=== PATIENT | male | born 1960 | race Caucasian/White ===

== ENCOUNTER 2019-05-06 14:56 | Outpatient (CLI) | payer OTHER, SELFPAY ==
[2019-05-06 15:23] LABS: Hemoglobin A1C 8.3 % (<5.7)
[2019-05-06 15:24] LABS: Alanine Aminotransferase 31 U/L (4-50); Albumin Level 4.6 g/dL (3.5-5.1); Alkaline Phosphatase 52 U/L (38-126); Aspartate Amino Transferase 36 U/L (17-59); Bilirubin,Total 0.5 mg/dL (0.2-1.3); Blood Urea Nitrogen 20 mg/dL (9-20); Calcium 9.8 mg/dL (8.4-10.2); Carbon Dioxide 27 mmol/L (22-30); Chloride 101 mmol/L (98-107); Estimated Glomerular Filt Rate 52; Glucose 127 mg/dL (75-110); Sodium 141 mmol/L (137-145)
[2019-05-08 19:22] LABS: ANA Cascade Screen Positive (Negative)
[2019-05-12 07:07] LABS: Chromatin (Nucleosomal) Ab <1.0; RNP Antibody <1.0; Sm Antibody <1.0; Sm/RNP Antibody <1.0
[2019-05-12 07:08] LABS: Chromatin Antibody Charge YES; DNA (ds) Antibody Charge YES; RNP Antibody Charge YES; Sm Antibody Charge YES; Sm/RNP Antibody Charge YES
== END 2019-05-06 14:57 | disposition home or self-care (01) ==
PROVIDERS: Internal Medicine Critical Care Medicine; PCP Family Medicine; Visit Provider Physician Assistant
DX: E03.9 Hypothyroidism, unspecified (principal); E11.29 Type 2 diabetes mellitus with other diabetic kidney complication; I13.0 Hypertensive heart and chronic kidney disease with heart failure and stage 1 through stage 4 chronic kidney disease, or unspecified chronic kidney disease; N18.3 Chronic kidney disease, stage 3 (moderate); M35.9 Systemic involvement of connective tissue, unspecified
CPT/HCPCS: 36415; 80053; 83036; 84443; 86038; 86225; 86235

== ENCOUNTER 2019-05-20 13:44 | Outpatient (CLI) | payer OTHER, SELFPAY ==
--- NOTE | 2019-05-25 14:32 | WPDPFTINT ---
PFT Interpretation PFT Interpretation: This PFT met all criteria for ATS standards and reproducibility FEV/FVC post bronchodilator 75% FEV1 89% FVC 84% TLC 88% RV 81% RV/TLC 33% DLCO 51% when adjusted for alveolar volume but not adjusted for hemoglobin Flow volume loops were normal Impression: Moderate reduced diffusion capacity with no significant obstruction or restriction. No significant change since PFT from December 2017. In the absence of anemia or pulmonary hypertension intrinsic lung disease may be present. Clinical correlation is advised.
--- NOTE | 2019-05-25 14:35 | WPDSIXMINUTE ---
Six Minute Walk Six Minute Walk: The patients O2 sats started at 95% and dropped as low as 93% Total walk distance 251.46 meters conclusion: This patient would not benefit from home oxygen therapy
== END 2019-05-20 13:45 | disposition home or self-care (01) ==
LOC: ANHPFT 13:47
PROVIDERS: PCP Family Medicine; Visit Provider Internal Medicine Critical Care Medicine
DX: R06.02 Shortness of breath (principal); R94.2 Abnormal results of pulmonary function studies
CPT/HCPCS: 94060; 94618; 94726; 94729

== ENCOUNTER → 2019-10-28 13:38 | Outpatient (CLI) | payer OTHER, SELFPAY ==
--- NOTE | ~2019-10-28 | CT_ITS ---
EXAMINATION: CT lung screening DATE: 10/28/2019 15:05 INDICATION: Personal history of tobacco dependence, prior smoker with 60 pack year history TECHNIQUE: Computed tomography (CT) of the chest was performed without intravenous contrast. The dose -length product (DLP) was 367.14 mGy-cm. Automated exposure control and iterative reconstruction tech OONi were employed. COMPARISON: 10/21/2018 FINDINGS: No suspicious pulmonary nodules are identified. There is mild emphysema. Calcified pulmonar y nodules and calcified left hilar lymph nodes are consistent with old granulomatous disease. There i s no pleural effusion or pneumothorax. No pathologically enlarged thoracic lymph nodes are identified . The heart size is normal. There are changes of coronary artery bypass grafting. There are bridging osteophytes at multiple levels in the spine, consistent with diffuse idiopathic skeletal hyperostosis (DISH). IMPRESSION: 1. Lung-RADS category 1: Negative. Continue annual screening with noncontrast low-dose chest CT in 12 months. Reviewed, dictated and finalized at location B. IMPRESSION: 1. Lung-RADS category 1: Negative. Continue annual screening with noncontrast l ow-dose chest CT in 12 months.
== END ==
PROVIDERS: PCP Internal Medicine Critical Care Medicine; Visit Provider Family Medicine
DX: Z12.2 Encounter for screening for malignant neoplasm of respiratory organs (principal); Z87.891 Personal history of nicotine dependence
CPT/HCPCS: G0297

== ENCOUNTER 2020-06-08 11:59 | Outpatient (CLI) | payer OTHER, SELFPAY ==
[2020-06-08 12:40] LABS: Alanine Aminotransferase 17 U/L (4-50); Albumin Level 4.3 g/dL (3.5-5.1); Alkaline Phosphatase 38 U/L (38-126); Anion Gap 7 mmol/L (8-16); Aspartate Amino Transferase 28 U/L (17-59); Bilirubin,Total 0.5 mg/dL (0.2-1.3); Blood Urea Nitrogen 13 mg/dL (9-20); Calcium 9.2 mg/dL (8.4-10.2); Carbon Dioxide 29 mmol/L (22-30); Chloride 101 mmol/L (98-107); Estimated Glomerular Filt Rate 48; Glucose 115 mg/dL (75-110); Potassium 5.1 mmol/L (3.4-5.0); Sodium 137 mmol/L (137-145)
[2020-06-08 12:46] LABS: Hemoglobin A1C 6.9 % (<5.7)
== END 2020-06-08 12:00 | disposition home or self-care (01) ==
PROVIDERS: PCP Family Medicine; Visit Provider Family Medicine
DX: E11.29 Type 2 diabetes mellitus with other diabetic kidney complication (principal)
CPT/HCPCS: 36415; 80053; 83036

== ENCOUNTER 2020-10-06 11:25 | Outpatient (CLI) | payer OTHER, SELFPAY ==
[2020-10-06 12:06] LABS: Hemoglobin A1C 8.7 % (<5.7)
[2020-10-06 12:07] LABS: Alanine Aminotransferase 22 U/L (4-50); Albumin Level 4.8 g/dL (3.5-5.1); Alkaline Phosphatase 41 U/L (38-126); Anion Gap 9 mmol/L (8-16); Aspartate Amino Transferase 35 U/L (17-59); Bilirubin,Total 0.4 mg/dL (0.2-1.3); Blood Urea Nitrogen 13 mg/dL (9-20); Calcium 9.6 mg/dL (8.4-10.2); Carbon Dioxide 27 mmol/L (22-30); Chloride 103 mmol/L (98-107); Estimated Glomerular Filt Rate 47; Glucose 162 mg/dL (75-110); Potassium 4.8 mmol/L (3.4-5.0); Sodium 139 mmol/L (137-145)
== END 2020-10-06 11:26 | disposition home or self-care (01) ==
PROVIDERS: PCP Family Medicine; Visit Provider Family Medicine
DX: E11.29 Type 2 diabetes mellitus with other diabetic kidney complication (principal)
CPT/HCPCS: 36415; 80053; 83036

== ENCOUNTER 2020-12-30 11:08 | Outpatient (CLI) | payer OTHER, SELFPAY ==
[2020-12-30 12:52] LABS: HIV 1/2 Ab P24 Ag Result Negative (Negative)
[2020-12-31 11:03] LABS: Rapid Plasma Reagin Non-Reactive (NonReactive)
== END 2020-12-30 11:09 | disposition home or self-care (01) ==
LOC: ANHLAB 11:09
PROVIDERS: PCP Family Medicine; Visit Provider Nurse Practitioner Family
DX: Z11.3 Encounter for screening for infections with a predominantly sexual mode of transmission (principal); Z11.4 Encounter for screening for human immunodeficiency virus [HIV]; Z72.51 High risk heterosexual behavior
CPT/HCPCS: 36415; 86592; 86695; 86696; 86703; G0432

== ENCOUNTER 2021-02-03 11:34 | Outpatient (CLI) | payer OTHER, SELFPAY ==
--- NOTE | ~2021-02-03 | XR_ITS ---
XR hand BI arthritis min 3V DATE: 02/03/2021 13:00 INDICATION: Osteoarthritis. Abnormal immunological findings. TECHNIQUE: 4 views of each hand COMPARISON: None FINDINGS: Right hand: There is asymmetric patchy sclerosis and mild expansion along the medial aspect of the distal radial diametaphysis approximately 4.8 cm in length, approximately 1.4 cm with. Consider fibrous cortical de fect, fibrous dysplasia, less likely old fracture residual. The appearance is benign, with narrow zon e of transition, no associated periosteal reaction or bone destruction. There is polyarticular osteoarthritis, particularly at the first through third metacarpophalangeal gelacio ints and multiple interphalangeal joints. No erosive change is detected. No fracture or dislocation, periosteal reaction or bone destruction. Left hand: Surgical clips are noted along the anterolateral aspect of the distal left forearm. Polyarticular moderate osteoarthritis involving the metacarpophalangeal and interphalangeal joints. No fracture or dislocation, periosteal reaction or bone destruction. IMPRESSION: Polyarticular osteoarthritis Patchy sclerotic benign lesion of the distal radial diametaphysis; differential diagnosis given above Postoperative change of the distal left forearm Reviewed, dictated and finalized at location A.
--- NOTE | ~2021-02-03 | XR_ITS ---
XR foot LT standing 2V DATE: 02/03/2021 13:00 INDICATION: Osteoarthritis. Abnormal immunological findings. TECHNIQUE: Weightbearing AP and lateral views COMPARISON: None FINDINGS: Plate and screws are noted along the distal fibular shaft and lateral malleolus. There are 2 screws through the medial malleolus. There is prominent posterior and plantar calcaneal enthesopathy. There are some calcifications along the plantar and fibrosis. There is moderate osteoarthritis at the first metatarsophalangeal joint. No recent fracture or dislocation, periosteal reaction or bone destruction. IMPRESSION: Status post ORIF distal fibular and medial malleolar fractures Plantar and posterior calcaneal enthesopathy Plantar aponeurosis calcifications Osteoarthritis at first metatarsophalangeal joint Reviewed, dictated and finalized at location A.
--- NOTE | ~2021-02-03 | XR_ITS ---
XR thoracic spine 3V DATE: 02/03/2021 13:00 INDICATION: Back pain. Osteoarthritis. TECHNIQUE: AP, lateral, swimmer views COMPARISON: None FINDINGS: Status post sternotomy. There is diffuse osteopenia. Diffuse idiopathic skeletal hyperostosis of the thoracic spine. No fracture or dislocation or bone destruction is evident. The thoracic pedicles appear intact. No pa raspinal soft tissue thickening. IMPRESSION: Diffuse idiopathic skeletal hyperostosis of the thoracic spine Reviewed, dictated and finalized at location A.
--- NOTE | ~2021-02-03 | XR_ITS ---
XR knee RT 3V DATE: 02/03/2021 13:00 INDICATION: Osteoarthritis. Abnormal neurological findings. TECHNIQUE: 3 views COMPARISON: None FINDINGS: There is periarticular spurring at all 3 compartments, particularly at the patellofemoral a nd medial compartments. There is joint space narrowing at the patellofemoral and medial compartments. Findings are consistent with prominent tricompartment osteoarthritis. There is mild suprapatellar knee joint effusion. No fracture or dislocation, periosteal reaction or bone destruction, radiopaque intra-articular loose body or chondrocalcinosis is evident. There are surgical clips along the posteromedial aspect of the upper knee area. IMPRESSION: Tricompartment osteoarthritis Reviewed, dictated and finalized at location A.
--- NOTE | ~2021-02-03 | XR_ITS ---
XR knee LT 3V DATE: 02/03/2021 13:00 INDICATION: Osteoarthritis. Abnormal immunological findings TECHNIQUE: 3 views COMPARISON: 08/2011 left knee FINDINGS: There is tricompartment osteoarthritis, most severe at the patellofemoral compartment with prominent periarticular spurring. There is moderate loss of medial compartment joint space and promin ent particular spurring at the medial and lateral compartments. No fracture or dislocation or joint effusion. No periosteal reaction or bone destruction. No radiopaq ue intra-articular loose body or chondrocalcinosis.. IMPRESSION: Tricompartment osteoarthritis Reviewed, dictated and finalized at location A.
--- NOTE | ~2021-02-03 | XR_ITS ---
XR sacroiliac joints min 3V DATE: 02/03/2021 13:00 INDICATION: Osteoarthritis. Abnormal neurological findings. TECHNIQUE: AP and bilateral oblique views of the sacroiliac joints COMPARISON: None FINDINGS: No fracture or dislocation, erosive change or ankylosis at the sacroiliac joints. The pubic symphysis is intact. Symmetric mild osteoarthritis at the hip joints. IMPRESSION: Unremarkable sacroiliac joints Reviewed, dictated and finalized at Location A. Reviewed, dictated and finalized at location A.
--- NOTE | ~2021-02-03 | XR_ITS ---
XR foot RT standing 2V DATE: 02/03/2021 13:00 INDICATION: Abnormal neurological findings. Osteoarthritis. TECHNIQUE: Weightbearing AP and lateral views COMPARISON: 04/11/2016 right foot FINDINGS: There is a prominent posterior ankle soft tissue calcification measuring approximately 8 x 15 mm. Osteopenia. There is severe posterior plantar calcaneal enthesopathy, mild to moderate plantar calcaneal enthesop athy. Osteoarthritic changes noted at tarsometatarsal joints, the first metatarsophalangeal and interphalan geal joints. Hallux valgus and bunion deformity. No fracture, dislocation, periosteal reaction or bone destruction or erosive change is evident. IMPRESSION: Polyarticular osteoarthritis Plantar calcaneal enthesopathy, predominantly posteriorly Hallux valgus and bunion deformity Reviewed, dictated and finalized at location A.
[2021-02-03 12:32] LABS: Basophils Absolute Auto 0.1 K/mm3 (0.0-0.1); Basophils Percent Auto 0.7 % (0.2-1.2); Eosinophils Absolute Auto 0.2 K/mm3 (0-0.3); Eosinophils Percent Auto 3.6 % (0-4.4); Hematocrit 38.7 % (42.0-52.0); Hemoglobin 12.2 g/dL (14.0-18.0); Immature Granulocyte Absolute 0.01 K/mm3 (0.00-0.031); Immature Granulocyte Percent A 0.1 % (0-0.5); Lymphocytes Percent Auto 31.3 % (18.3-44.2); Mean Corpuscular HGB Conc 31.5 g/dl (32-36); Mean Corpuscular Volume 85.6 fl (80-100); Mean Platelet Volume 9.7 fl (7.4-10.4); Monocytes Absolute Auto 0.5 K/mm3 (0.1-0.6); Monocytes Percent Auto 6.7 % (2.6-8.5); Neutrophils Absolute Auto 3.9 K/mm3 (1.3-6.7); Neutrophils Percent Auto 57.6 % (45.5-73.1); Platelet Count Result 306 k/mm3 (150-375); Red Blood Count 4.52 M/mm3 (4.6-6.20); Red Cell Distribution Width 14.1 % (11.5-14.5); White Blood Count 6.7 K/mm3 (4.5-10.0)
[2021-02-03 12:37] LABS: Add Urine Microscopic? YES; Appearance Urine Cloudy (Clear); Bilirubin Urine Negative (Negative); Blood Urine Negative (Negative); Color Urine Amber (Yellow); Glucose Urine UA Negative (Negative); Hyaline Casts Urine 30-49 /lpf; Ketones Urine Trace mg/dL (Negative); Leukocyte Esterase Ur Negative LEU/UL (NEGATIVE); Mucus Urine Rare /lpf; Nitrate Urine Negative (Negative); Protein Urine 2+ mg/dL (Negative); RBC Urine 0-2 /hpf (0-2); Squamous Epithelial Cell Urine Rare /hpf (Few)
[2021-02-03 12:44] LABS: Alanine Aminotransferase 22 U/L (4-50); Albumin Level 4.6 g/dL (3.5-5.1); Alkaline Phosphatase 34 U/L (38-126); Anion Gap 14 mmol/L (8-16); Aspartate Amino Transferase 32 U/L (17-59); Bilirubin,Total 0.8 mg/dL (0.2-1.3); Blood Urea Nitrogen 19 mg/dL (9-20); Calcium 9.8 mg/dL (8.4-10.2); Carbon Dioxide 23 mmol/L (22-30); Chloride 103 mmol/L (98-107); Cholesterol 126 mg/dL (0-200); Estimated Glomerular Filt Rate 47; Glucose 172 mg/dL (65-110); HDL Direct 28 mg/dL; Potassium 4.4 mmol/L (3.4-5.0); Sodium 140 mmol/L (137-145); Triglycerides 247 mg/dL (<150)
[2021-02-03 12:55] LABS: LDL Cholesterol Direct 57 mg/dL
[2021-02-03 13:15] LABS: Prostate Specific Antigen 2.2 ng/mL (< OR = 4.0)
[2021-02-03 13:35] LABS: Creatinine Urine 454.3 mg/dL; MALB Creatinine Ratio 133.3 mg/g (0-30); Microalbumin Urine Random 605.5 mg/L (0-16.7)
== END 2021-02-03 11:35 | disposition home or self-care (01) ==
PROVIDERS: PCP Family Medicine; Referring Provider Internal Medicine; Visit Provider Physician Assistant
DX: Z12.5 Encounter for screening for malignant neoplasm of prostate (principal); E03.9 Hypothyroidism, unspecified; M32.9 Systemic lupus erythematosus, unspecified; I13.0 Hypertensive heart and chronic kidney disease with heart failure and stage 1 through stage 4 chronic kidney disease, or unspecified chronic kidney disease; N18.30 Chronic kidney disease, stage 3 unspecified; E11.29 Type 2 diabetes mellitus with other diabetic kidney complication; R76.8 Other specified abnormal immunological findings in serum; M19.90 Unspecified osteoarthritis, unspecified site; M48.10 Ankylosing hyperostosis [Forestier], site unspecified; Z00.00 Encounter for general adult medical examination without abnormal findings; M48.14 Ankylosing hyperostosis [Forestier], thoracic region; M18.11 Unilateral primary osteoarthritis of first carpometacarpal joint, right hand; M16.0 Bilateral primary osteoarthritis of hip; M17.0 Bilateral primary osteoarthritis of knee
CPT/HCPCS: 36415; 72072; 72202; 73130; 73562; 73620; 80053; 80061; 81001; 82043; 84153; 84443; 85025; G0103

== ENCOUNTER 2021-02-09 11:40 | Outpatient (CLI) | payer OTHER, SELFPAY ==
[2021-02-09 13:21] LABS: Hemoglobin A1C 6.3 % (<5.7)
== END 2021-02-09 11:41 | disposition home or self-care (01) ==
LOC: ANHLAB 11:43
PROVIDERS: PCP Family Medicine; Visit Provider Family Medicine
DX: E11.29 Type 2 diabetes mellitus with other diabetic kidney complication (principal)
CPT/HCPCS: 36415; 83036

== ENCOUNTER 2021-03-17 10:35 | Outpatient (CLI) | payer OTHER, SELFPAY ==
[2021-03-17 11:04] LABS: Basophils Absolute Auto 0.1 K/mm3 (0.0-0.1); Basophils Percent Auto 0.6 % (0.2-1.2); Eosinophils Absolute Auto 0.3 K/mm3 (0-0.3); Eosinophils Percent Auto 2.9 % (0-4.4); Hematocrit 41.5 % (42.0-52.0); Hemoglobin 13.2 g/dL (14.0-18.0); Immature Granulocyte Absolute 0.04 K/mm3 (0.00-0.031); Immature Granulocyte Percent A 0.4 % (0-0.5); Lymphocytes Absolute Auto 2.97 K/mm3 (0.9-3.2); Lymphocytes Percent Auto 29.5 % (18.3-44.2); Mean Corpuscular HGB Conc 31.8 g/dl (32-36); Mean Corpuscular Hemoglobin 26.6 pg (26-34); Mean Corpuscular Volume 83.5 fl (80-100); Mean Platelet Volume 9.6 fl (7.4-10.4); Monocytes Absolute Auto 0.8 K/mm3 (0.1-0.6); Monocytes Percent Auto 7.8 % (2.6-8.5); Neutrophils Absolute Auto 5.9 K/mm3 (1.3-6.7); Neutrophils Percent Auto 58.8 % (45.5-73.1); Platelet Count Result 284 k/mm3 (150-375); Red Blood Count 4.97 M/mm3 (4.6-6.20); Red Cell Distribution Width 13.9 % (11.5-14.5); White Blood Count 10.1 K/mm3 (4.5-10.0)
[2021-03-17 11:14] LABS: Alanine Aminotransferase 23 U/L (4-50); Albumin Level 5.2 g/dL (3.5-5.1); Alkaline Phosphatase 34 U/L (38-126); Anion Gap 8 mmol/L (8-16); Aspartate Amino Transferase 37 U/L (17-59); Bilirubin,Total 0.6 mg/dL (0.2-1.3); Blood Urea Nitrogen 25 mg/dL (9-20); Calcium 9.9 mg/dL (8.4-10.2); Carbon Dioxide 26 mmol/L (22-30); Chloride 101 mmol/L (98-107); Estimated Glomerular Filt Rate 38; Glucose 113 mg/dL (65-110); Potassium 4.8 mmol/L (3.4-5.0); Sodium 135 mmol/L (137-145)
[2021-03-17 11:53] LABS: HIV 1/2 Ab P24 Ag Result Negative (Negative)
[2021-03-17 11:55] LABS: Rapid Plasma Reagin Non-Reactive (NonReactive)
== END 2021-03-17 10:36 | disposition home or self-care (01) ==
PROVIDERS: PCP Family Medicine; Visit Provider Physician Assistant
DX: L29.9 Pruritus, unspecified (principal); M32.9 Systemic lupus erythematosus, unspecified; N18.31 Chronic kidney disease, stage 3a; Z20.9 Contact with and (suspected) exposure to unspecified communicable disease
CPT/HCPCS: 36415; 80053; 85025; 86592; 86703; G0432

== ENCOUNTER 2021-03-18 18:32 | Emergency (ER) | payer OTHER, SELFPAY ==
[2021-03-18 18:39] VITALS: BP 158/71; PULSE 75; RESP 20; TEMP 36.4; O2SAT 99
--- NOTE | 2021-03-18 19:42 | ED.GENADULT ---
HPI - General Adult General Chief complaint: Skin/Abscess/Foreign Body Stated complaint: Itching all over Time Seen by Provider: 03/18/21 19:24 History of Present Illness HPI narrative: 60-year-old male presents to the emergency department for evaluation of itching over his entire body for the past 2 weeks. Patient states he started hydroxychloroquine approximately 1 month ago. Patient states the itching started 2 weeks ago. 1 week ago he stopped taking the hydroxychloroquine. Patient did have follow-up with his primary care physician yesterday and had outpatient labs drawn. Patient was also started on a methylprednisolone pack. Patient states he started the dose back yesterday and felt that it did help to start with. Patient states that the first dose of steroid did help but not feel significant improvement from the second dose. Patient has also been taking Benadryl. Review of Systems Review of Systems: CONSTITUTIONAL: Denies fever, chills, or sweats. EYES: Denies visual changes, redness, or discharge. ENT: Denies rhinorrhea, congestion, sore throat, or otalgia. CARDIOVASCULAR: Denies chest pain, palpitations, or edema. RESPIRATORY: Denies cough or dyspnea. GASTROINTESTINAL: Denies abdominal pain, nausea, vomiting, or diarrhea. GENITOURINARY: Denies dysuria or hematuria. SKIN: Denies any rash but does have itching MUSCULOSKELETAL: Denies back pain, joint pain, or myalgia. NEUROLOGIC: Denies headache, numbness, or weakness. PSYCHIATRIC: Denies anxiety or depression. Exam Narrative: APPEARANCE: Well appearing, no pain in distress, well-nourished. Head normocephalic atraumatic. EYES: PERRLA/EOMI, conjunctivae very clear. NOSE: Normal no drainage EARS:TMS clear [place] Seals, with good light reflex. THROAT: Pharynx clear, no exudate. NECK: Supple. No adenopathy, no masses. RESPIRATORY: Airway patent, respirations nonlabored. Clear to auscultation bilaterally, no rales, rhonchi, wheezing. CARDIOVASCULAR: Regular rate and rhythm without murmurs rubs or gallops. ABDOMINAL: Soft, nontender, nondistended, no hepatosplenomegally MUSCULOSKELETAl: Moves all extremities. Strenght/ROM intact, No edema, No calf tenderness. NEURO: Alert. Cranial nerves II through XII intact. Good gait. Good coordination SKIN: Warm, dry. Normal Color. No evidence of any rash PSYCHIATRIC: Normal affect/mood Course Vital Signs Vital signs: Vital Signs Temperature 97.6 F 03/18/21 18:39 Pulse Rate 75 03/18/21 18:39 Respiratory Rate 20 03/18/21 18:39 Blood Pressure 158/71 H 03/18/21 18:39 Pulse Oximetry 99 03/18/21 18:39 Temperature 97.6 F 03/18/21 18:39 Pulse Rate 75 03/18/21 18:39 Respiratory Rate 20 03/18/21 18:39 Blood Pressure 158/71 H 03/18/21 18:39 Pulse Oximetry 99 03/18/21 18:39 Medical Decision Making MDM Narrative Medical decision making narrative: Patient does have outpatient labs which showed abnormal liver enzymes including T bili. Patient has no rash or abnormal skin findings. No areas of excoriation Patient did feel that he had some improvement with the steroids and Benadryl. Patient will be advised to take a lower dose of Benadryl, no more than 50 mg at a time. Patient will be started on Atarax No concern for stroke, scabies, cellulitis. Medical Records Medical records reviewed: Yes I reviewed the external patient's medical records. Medical records narrative: Patient does have 2 charts and labs from his non merged chart were reviewed Vital Signs Vital Signs: Vital Signs Temperature 97.6 F 03/18/21 18:39 Pulse Rate 75 03/18/21 18:39 Respiratory Rate 20 03/18/21 18:39 Blood Pressure 158/71 H 03/18/21 18:39 Pulse Oximetry 99 03/18/21 18:39 Temperature 97.6 F 03/18/21 18:39 Pulse Rate 75 03/18/21 18:39 Respiratory Rate 20 03/18/21 18:39 Blood Pressure 158/71 H 03/18/21 18:39 Pulse Oximetry 99 03/18/21 18:39 Discharge Plan Discharge Clinical Impression: Itching
[2021-03-18 20:44] VITALS: BP 144/95; PULSE 60; RESP 18; O2SAT 95
== END 2021-03-18 20:45 | disposition home or self-care (01) ==
PROVIDERS: Emergency Provider Emergency Medicine; PCP Family Medicine
DX: L29.9 Pruritus, unspecified (principal)
CPT/HCPCS: 99283

== ENCOUNTER 2021-04-14 09:30 | Outpatient (CLI) | payer OTHER, SELFPAY ==
[2021-04-14 10:23] LABS: Alanine Aminotransferase 20 U/L (4-50); Albumin Level 4.4 g/dL (3.5-5.1); Alkaline Phosphatase 33 U/L (38-126); Anion Gap 11 mmol/L (8-16); Aspartate Amino Transferase 33 U/L (17-59); Bilirubin,Total 0.4 mg/dL (0.2-1.3); Blood Urea Nitrogen 16 mg/dL (9-20); Calcium 9.5 mg/dL (8.4-10.2); Carbon Dioxide 25 mmol/L (22-30); Chloride 101 mmol/L (98-107); Estimated Glomerular Filt Rate 56; Glucose 146 mg/dL (65-110); Potassium 4.6 mmol/L (3.4-5.0); Sodium 137 mmol/L (137-145)
[2021-04-14 11:04] LABS: Hepatitis B Surface Antigen Negative (Negative)
== END 2021-04-14 09:31 | disposition home or self-care (01) ==
LOC: ANHLAB 09:44
PROVIDERS: PCP Family Medicine; Visit Provider Family Medicine
DX: Z20.9 Contact with and (suspected) exposure to unspecified communicable disease (principal); Z11.59 Encounter for screening for other viral diseases
CPT/HCPCS: 36415; 80053; 87340

== ENCOUNTER → 2021-05-27 10:16 | Outpatient (CLI) | payer OTHER, SELFPAY ==
[2021-05-27 11:54] LABS: Influenza A QL RT-PCR Negative (Negative); Influenza B QL RT-PCR Negative (Negative); SARS-CoV-2 RNA PCR Positive
== END ==
PROVIDERS: PCP Family Medicine; Visit Provider Physician Assistant
DX: R05.9 Cough, unspecified (principal); R68.89 Other general symptoms and signs; U07.1 COVID-19
CPT/HCPCS: 87502; C9803; U0003; U0005

== ENCOUNTER 2021-05-27 14:57 | Inpatient (IN) | payer OTHER, SELFPAY ==
[2021-05-27] VITALS (14 sets, daily range): BP systolic 98–165; BP diastolic 36–94; PULSE 65–78; RESP 18–26; TEMP 36.4–37.7; O2SAT 91–100; BMI 36.6
--- NOTE | ~2021-05-27 | CT_ITS ---
EXAMINATION: CTA chest PE protocol DATE: 05/27/2021 17:43 INDICATION: Shortness of breath TECHNIQUE: Computed tomography angiography (CTA) of the chest was performed with 100 mL Omnipaque-350 intravenous contrast timed to evaluate the pulmonary arteries. Coronal maximum intensity projection 3D-reconstructions were created by the technologist. The dose-length product (DLP) was 877.79 mGy-cm. Automated exposure control and iterative reconstruction technique were employed. COMPARISON: 10/28/2019 FINDINGS: The pulmonary arteries are well-opacified. No pulmonary embolism is identified. No patholog ically enlarged thoracic lymph nodes are identified. The heart size is normal. The lungs are free of acute opacities. There is no pleural effusion or pneumothorax. Changes of coronary artery bypass malika ting are noted. There are bridging osteophytes at multiple levels in the spine, consistent with diffu se idiopathic skeletal hyperostosis (DISH). IMPRESSION: 1. No pulmonary embolism or acute cardiopulmonary abnormality. Reviewed, dictated and finalized at location F. COMMUNICATIONS MANAGER
--- NOTE | ~2021-05-27 | XR_ITS ---
EXAMINATION: XR chest 1V portable DATE: 05/27/2021 15:19 INDICATION: Shortness of breath. TECHNIQUE: A single frontal view of the chest was obtained. COMPARISON: Chest 2 views 11/10/2012, chest CT 10/28/2019 FINDINGS: The chest demonstrates clear lungs without pneumonia, pleural effusion, or pneumothorax. Th e heart size is normal. Median sternotomy wires are noted. IMPRESSION: 1. No acute cardiopulmonary disease. Reviewed, dictated and finalized at location A. BEVERAGE MANAGER
--- NOTE | 2021-05-27 15:05 | ECG_ITS ---
Measurements Intervals Mal[place] Rate: P: MO: QRS: QRSD: T: QT: QTc: Interpretive Statements NORMAL SINUS RHYTHM LATERAL T-WAVE ABNORMALITY, CONSIDER ISCHEMIA LEFT AXIS DEVIATION INFERIOR INFARCT, AGE UNDETERMINED ABNORMAL EKG Electronically Signed On 06-01-2021 13:55:02 SALES AND EVENTS COORDINATOR by Horace Ash M.D.
--- NOTE | 2021-05-27 15:18 | ED.GENADULT ---
HPI - General Adult General Chief complaint: Shortness of Breath/Dyspnea Stated complaint: resp distress Time Seen by Provider: 05/27/21 15:18 History of Present Illness HPI narrative: 60-year-old male presents to the emergency room shortness of breath, body aches, fever. Patient states body aches fever began 2 days ago. Patient states shortness of breath difficulty breathing started this morning, tested positive for Covid this morning. Patient has a history of COPD, CABG x4. Patient states he received both Covid shots and the booster. Related Data Home Medications Medication Instructions Recorded Confirmed carvedilol 12.5 mg tablet 12.5 mg PO Q12H 04/15/19 05/11/21 clopidogrel 75 mg tablet 75 mg PO DAILY 04/15/19 05/11/21 isosorbide mononitrate 60 mg 60 mg PO DAILY 04/15/19 05/11/21 tablet,extended release 24 hr multivitamin 1 tablet PO DAILY 04/15/19 05/11/21 naproxen sodium 220 mg capsule 440 mg PO BID PRN cap 04/15/19 05/11/21 nitroglycerin 0.4 mg sublingual 0.4 mg SUBLINGUAL Q5M PRN 04/15/19 05/11/21 tablet omega [id number]-fish oil 1,200 mg 1 cap PO BID cap 04/15/19 05/11/21 (144 mg-216 mg) capsule rosuvastatin 40 mg tablet 40 mg PO DAILY 04/15/19 05/11/21 spironolactone 50 mg tablet 50 mg PO DAILY 04/15/19 05/11/21 aspirin 81 mg tablet,delayed 81 mg PO DAILY 04/23/19 05/11/21 release fenofibrate nanocrystallized 145 145 mg PO DAILY 04/23/19 05/11/21 mg tablet loratadine 10 mg capsule 10 mg PO DAILY 05/06/19 05/11/21 metformin 2,000 mg PO QID 03/10/21 05/11/21 Allergies Allergy/AdvReac Type Severity Reaction Status Date / Time hydralazine Allergy Unknown CAUSED Verified 05/11/21 09:59 LUPUS Review of Systems Review of Systems: CONSTITUTIONAL: Denies fever, chills, or sweats. EYES: Denies visual changes, redness, or discharge. ENT: Denies rhinorrhea, congestion, sore throat, or otalgia. CARDIOVASCULAR: Denies chest pain, palpitations, or edema. RESPIRATORY: Reports dyspnea and shortness of breath. GASTROINTESTINAL: Denies abdominal pain, nausea, vomiting, or diarrhea. GENITOURINARY: Denies dysuria or hematuria. SKIN: Denies rash or itching. MUSCULOSKELETAL: Denies back pain, joint pain, or myalgia. NEUROLOGIC: Denies headache, numbness, dizziness, or weakness. PSYCHIATRIC: Denies anxiety or depression. [facility] Past Medical History Medical History Allergic rhinitis NIRANJAN positive Asthma with COPD COPD (chronic obstructive pulmonary disease) Diabetes type 2, controlled DISH (diffuse idiopathic skeletal hyperostosis) Drug-induced lupus erythematosus H/O: CVA (cerebrovascular accident) Hyperlipidemia Hypertension Hypertriglyceridemia Inflammatory arthritis Mild emphysema Obesity Pulmonary nodules Wellness examination Surgical History Surgical History Hx of CABG 2015 Family History Family History Mother Carcinoma of colon Other Diabetes mellitus Family history of arthritis Family history of malignant neoplasm Social History Social History Smoking packs per day: 1 Smoking cigarettes per day: 20.0 Years smoked: 30 Smoking pack-years: 30.00 Smoking status: Former smoker Tobacco type: cigarettes Second hand tobacco smoke exposure: Yes Smoking end date: 04/02/04 Alcohol intake: never Substance use: never Substance use type: does not use Gender identity (if verbalized by the patient): Male Sexual Orientation (if Verbalized by the Patient): Straight or Heterosexual Spiritual care concerns: No Exam Narrative: GENERAL: Ill-appearing in mild respiratory distress. HEAD: Normocephalic, atraumatic. EYES: PERRLA and EOMI. ENT: Nares clear, no rhinorrhea or epistaxis. Mucous membranes moist. NECK: Supple. No adenopathy or masses. N
[2021-05-27 15:20] LABS: Basophils Absolute Auto 0.1 K/mm3 (0.0-0.1); Basophils Percent Auto 0.5 % (0.2-1.2); Eosinophils Absolute Auto 0.1 K/mm3 (0-0.3); Eosinophils Percent Auto 0.8 % (0-4.4); Hematocrit 34.9 % (42.0-52.0); Immature Granulocyte Absolute 0.07 K/mm3 (0.00-0.031); Immature Granulocyte Percent A 0.6 % (0-0.5); Lymphocytes Absolute Auto 2.55 K/mm3 (0.9-3.2); Lymphocytes Percent Auto 20.6 % (18.3-44.2); Mean Corpuscular HGB Conc 31.5 g/dl (32-36); Mean Corpuscular Hemoglobin 26.4 pg (26-34); Mean Corpuscular Volume 83.9 fl (80-100); Mean Platelet Volume 9.4 fl (7.4-10.4); Monocytes Absolute Auto 1.3 K/mm3 (0.1-0.6); Monocytes Percent Auto 10.1 % (2.6-8.5); Neutrophils Absolute Auto 8.4 K/mm3 (1.3-6.7); Neutrophils Percent Auto 67.4 % (45.5-73.1); Platelet Count Result 245 k/mm3 (150-375); Red Blood Count 4.16 M/mm3 (4.6-6.20); Red Cell Distribution Width 15.6 % (11.5-14.5); White Blood Count 12.4 K/mm3 (4.5-10.0)
[2021-05-27 15:45] LABS: Alanine Aminotransferase 58 U/L (4-50); Albumin Level 4.1 g/dL (3.5-5.1); Alkaline Phosphatase 59 U/L (38-126); Anion Gap 8 mmol/L (8-16); Aspartate Amino Transferase 96 U/L (17-59); Bilirubin,Total 0.5 mg/dL (0.2-1.3); Blood Urea Nitrogen 19 mg/dL (9-20); Calcium 9.1 mg/dL (8.4-10.2); Carbon Dioxide 24 mmol/L (22-30); Chloride 103 mmol/L (98-107); Estimated CRCL calculation 59 ml/min; Estimated Glomerular Filt Rate 47; Glucose 143 mg/dL (65-110); Potassium 4.6 mmol/L (3.4-5.0); Sodium 135 mmol/L (137-145)
[2021-05-27] MEDS: ALBUTEROL SULFATE (*SP) INHALER 2 PUFF INHALATION (15:45)
[2021-05-27] MEDS: SODIUM CHLORIDE 0.9% IV 1,000 ML 500 ML IV CONT (15:47)
[2021-05-27] MEDS: ACETAMINOPHEN 500 MG TABLET 1000 MG PO (15:48)
--- NOTE | 2021-05-27 16:45 | PC.NURSE ---
Pt called out, when this RN entered the room pt was noted to have hands to bilateral faith, states his head is aching. HAND CANDLE MOLDER Juan Manuel made aware.
[2021-05-27] MEDS: KETOROLAC 30 MG/ML VIAL (*BKC) IV PUSH (16:56)
[2021-05-27 17:04] LABS: Base Excess ABG -2.3 mEq/l (+/-2.0); Fractional Inspired Oxygen 21 %; HCO3 ABG 18.6 mEq/l (22.0-26.0); Oxygen Content ABG 15.7 %vol (16.0-22.0); Oxygen Saturation ABG 97.2 % (95.0-100.0); Oxyhemoglobin 95.8 % THb (90.0-100.0); PO2 ABG 79.5 mmHg (80.0-100.0); PO2 FiO2 Ratio Arterial Blood 3.79 %; Total Hemoglobin 11.6 g/dL (12.0-18.0)
[2021-05-27 17:07] LABS: pH ABG 7.546 (7.350-7.450)
[2021-05-27 17:08] LABS: Device ROOM AIR; Modified Allen's Test Pass; PCO2 ABG 21.9 mmHg (35.0-45.0); Site Drawn RIGHT RADIAL
--- NOTE | 2021-05-27 17:29 | PC.NURSE ---
PT to ct via stretcher
[2021-05-27] MEDS: LORazepam INJ (*CRX) 2 MG/ML VIAL 1 MG IV PUSH (18:37)
--- NOTE | 2021-05-27 20:20 | PM.IMHP ---
H&P: HPI History of Present Illness Date/Time: 05/27/21 20:20 Chief Complaint: Shortness of breath Narrative: 60-year-old male with past medical history of obesity, obstructive sleep apnea, coronary artery disease status post four-vessel CABG, grade 2 diastolic dysfunction, chronic kidney disease stage 3-4, and diabetes mellitus who presented to the ER with increased shortness of breath. He reported that he was flying home from [place] on the when he began having symptoms of scratchy throat, fever and dry nonproductive cough. He was tested for COVID today and was found to be positive. After he returned home from the COVID test he started having increased shortness of breath. He reports that he took some Aleve to help with his body aches which provided him with enough relief that he was able to rest comfortably. He reports some chest wall tenderness with deep breathing and coughing. He denies any true chest pain. He denies any known ill contacts but admits he did not wear his mask as diligently as he should bowel on vacation. He denies any GI symptoms. He reported decreased urine output while he was on vacation but denies any dysuria, hematuria or sensation of incomplete bladder emptying. The patient received the [employer] COVID vaccine with booster 01/2021. He denies any orthopnea or lower extremity swelling. He does have obstructive sleep apnea but has not used his CPAP in 1 year due to machine recall. He was due for a new polysomnogram but has unable to been tested due to disruption 10 testing due to COVID pandemic. He has not had any loss of sense of taste or smell. He reports a good appetite but has not been able to eat as much as usual. He is on Truvada for STD prevention he does not have a history of HIV. Patient carries a diagnosis of COPD however PFTs in 2019 demonstrated decreased diffusion capacity but no evidence of obstructive or restrictive ventilatory defect. Review of Systems Review of Systems: 12 systems were reviewed with pertinent positives and negatives per HPI. Except as documented in the HPI, all other systems were reviewed and are negative. [facility] Past Medical History Medical History (Updated 05/27/21 @ 23:08 by Maryan Bates DO) Allergic rhinitis NIRANJAN positive Asthma with COPD Chronic kidney disease Stage III with baseline creatinine between 1.2-1.5 Class 2 obesity with body mass index (BMI) of 37.0 to 37.9 in adult COPD (chronic obstructive pulmonary disease) With PFTs 05/25/2019 demonstrating decreased diffusion capacity but no evidence of restrictive or obstructive ventilatory defect CVA (cerebral vascular accident) Right ocular stroke 2004 Diabetes type 2, controlled 02/09/2021 A1c 6.3 % DISH (diffuse idiopathic skeletal hyperostosis) 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 Grade II diastolic dysfunction Noted on echocardiogram 2015 Hyperlipidemia Hypertension Hypertriglyceridemia Hypothyroidism Inflammatory arthritis Obesity Obstructive sleep apnea on CPAP CPAP of 12 with polysomnogram 12 Pulmonary nodules Wellness examination Surgical History Surgical History (Updated 05/27/21 @ 21:43 by Maryan Bates DO) History of cardiac catheterization (~04/2016) Occluded RCA and DENIA to RCA, occluded saphenous vein graft to 90% stenosed D1, patent [place] to LAD and patent saphenous vein graft to obtuse marginal History of tonsillectomy Hx of CABG (~04/2015) For vessel CABG performed at [facility]: BALB[place] to LAD SVG to OM SVG to 2nd diagonal RA to PDA complicated by postoperative atrial fibrillation Status post open reduction with internal fixation of fracture Ankle fracture Family History Family History (Updated 05/27/21 @ 21:42 by Maryan Bates DO) Mother Carcinoma of colon COPD (chronic obstructive pulmonary disease) Father Acute myocardial infarction Age greater than 60 Osteoarthritis Other Diabetes mellitus Social History Social His
--- NOTE | 2021-05-27 22:55 | ADMGEN ---
This patient, Virgil Paz Jr., was admitted to [facility] Surg Room 301-01. Patient/family oriented to hospital policies and general routines including ID bracelet, bed and alarms, visiting hours, pain management, procedures, bathroom and other care routines, personal items, smoking policy, room service/diet, and visiting hours. Information on how to activate the Rapid Response Team has been discussed. Patient/Family are encouraged to report perceived risks to care and to ask questions if they do not understand what they are told or what they should do.
[2021-05-27 23:11] LABS: Glucose Point of Care 252 mg/dl (65-105)
[2021-05-27] MEDS: carvediloL 12.5 MG TABLET PO (23:28)
[2021-05-27] MEDS: rOPINIRole HCL 0.25 MG TABLET PO (23:28)
[2021-05-28] VITALS (10 sets, daily range): BP systolic 148–171; BP diastolic 70–96; PULSE 59–76; RESP 18–20; TEMP 35.8–36.2; O2SAT 95–100
[2021-05-28 06:49] LABS: Hematocrit 33.1 % (42.0-52.0); Hemoglobin 10.6 g/dL (14.0-18.0); Mean Corpuscular Hemoglobin 26.7 pg (26-34); Mean Corpuscular Volume 83.4 fl (80-100); Mean Platelet Volume 9.6 fl (7.4-10.4); Platelet Count Result 225 k/mm3 (150-375); Red Blood Count 3.97 M/mm3 (4.6-6.20); Red Cell Distribution Width 15.5 % (11.5-14.5)
[2021-05-28 07:11] LABS: Alanine Aminotransferase 55 U/L (4-50); Alkaline Phosphatase 51 U/L (38-126); Anion Gap 7 mmol/L (8-16); Aspartate Amino Transferase 61 U/L (17-59); Bilirubin,Total 0.4 mg/dL (0.2-1.3); Blood Urea Nitrogen 22 mg/dL (9-20); Calcium 8.6 mg/dL (8.4-10.2); Carbon Dioxide 23 mmol/L (22-30); Chloride 104 mmol/L (98-107); Estimated CRCL calculation 63 ml/min; Estimated Glomerular Filt Rate 51; Glucose 270 mg/dL (65-110); Lactate Dehydrogenase 439 U/L (313-618); Potassium 4.8 mmol/L (3.4-5.0); Sodium 134 mmol/L (137-145)
[2021-05-28 07:57] LABS: Glucose Point of Care 228 mg/dl (65-105)
[2021-05-28] MEDS: INSULIN ASPART (*BKC) 100 UNITS/ML SUB-Q ×2 (08:20→17:30)
[2021-05-28] MEDS: FENOFIBRATE NANOCRYSTALLIZED 145 MG TABLET PO (08:21)
[2021-05-28] MEDS: ISOSORBIDE MONONITRATE 60 MG TAB.ER.24H PO (08:21)
[2021-05-28] MEDS: CLOPIDOGREL BISULFATE 75 MG TABLET PO (08:21)
[2021-05-28] MEDS: amLODIPine BESYLATE 5 MG TABLET PO (08:21)
[2021-05-28] MEDS: carvediloL 12.5 MG TABLET PO ×2 (08:21→20:28)
[2021-05-28] MEDS: lisinopriL 20 MG TABLET 40 MG PO (08:22)
[2021-05-28] MEDS: rOPINIRole HCL 0.25 MG TABLET PO ×2 (08:22→20:28)
[2021-05-28] MEDS: SPIRONOLACTONE 50 MG TABLET PO (08:22)
[2021-05-28] MEDS: ROSUVASTATIN 10 MG TABLET 40 MG PO (08:22)
[2021-05-28] MEDS: PARoxetine 20 MG TABLET PO (08:22)
[2021-05-28] MEDS: ASPIRIN 81 MG ENTERIC TABLET PO (08:22)
[2021-05-28] MEDS: LEVOTHYROXINE SODIUM 50 MCG TABLET PO (08:23)
--- NOTE | 2021-05-28 10:30 | PM.IMPN ---
Progress Note: A&P Assessment and Plan (1) COVID-19: Code(s): U07.1 - COVID-19 Status: Acute Assessment and Plan: Positive COVID test was Sunday05/25/2021 chest x-ray does not show any evidence pneumonia CTA also does not show any pulmonary embolism or pneumonia. Patient is very tachypneic will start patient on remdesivir and Decadron due to tachypnea, audible wheezes, sore throat, cough supplemental oxygen to wean saturations greater than 90% IS and cornet therapy antitussives inflammatory markers: LDH 439 ferritin 31.60 will trend the a.m. ABG shows respiratory alkalosis with hypocapnia supportive care patient is vaccinated x3 Pfizer (2) Elevated liver transaminase level: Code(s): R74.01 - Elevation of levels of liver transaminase levels Status: Acute Assessment and Plan: AST/ALT elevated at 61/55 Trend labs Probably secondary to COVID infection Hep panel in the am (3) Obstructive sleep apnea (adult) (pediatric): Code(s): G47.33 - Obstructive sleep apnea (adult) (pediatric) Status: Acute Assessment and Plan: continue CPAP titrate to home settings (4) Diabetes type 2, controlled: Qualifiers: Diabetes mellitus complication status: without complication Diabetes mellitus intermediate insulin use: without intermediate use Qualified Code(s): E11.9 - Type 2 diabetes mellitus without complications Code(s): E11.9 - Type 2 diabetes mellitus without complications Status: Inactive Assessment and Plan: glucose 270 hold home metformin for now Accu-Cheks a.c. HS moderate sliding scale insulin hypoglycemia protocol as needed. trend glucose adjust therapy as indicated (5) Chronic kidney disease (CKD) stage G3a/A1, moderately decreased glomerular filtration rate (GFR) between 45-59 mL/min/1.73 square meter and albuminuria creatinine ratio less than 30 mg/g: Code(s): N18.31 - Chronic kidney disease, stage 3a Status: Acute Assessment and Plan: Creatinine is stable Avoid nephrotoxic medications, Trend urine output (6) BPH (benign prostatic hyperplasia): Code(s): N40.0 - Benign prostatic hyperplasia without lower urinary tract symptoms Status: Acute Assessment and Plan: Reports symptoms of BPH with urgency and frequency Trend urine output Start tamsulosin Post residual void (7) Hypertension: Code(s): I10 - Essential (primary) hypertension Status: Acute Assessment and Plan: Current BP 148/72 Continue home medications Trend BP adjust therapy as indicated Time Spent With Patient Time with patient: Greater than 35 minutes Subjective Date/time seen: 05/28/21 10:30 Interval history: Date/Time: 05/27/21 20:20 Narrative: 60-year-old male with past medical history of obesity, obstructive sleep apnea, coronary artery disease status post four-vessel CABG, grade 2 diastolic dysfunction, chronic kidney disease stage 3-4, and diabetes mellitus who presented to the ER with increased shortness of breath. He reported that he was flying home from [place] on the when he began having symptoms of scratchy throat, fever and dry nonproductive cough. He was tested for COVID today and was found to be positive. After he returned home from the COVID test he started having increased shortness of breath. He reports that he took some Aleve to help with his body aches which provided him with enough relief that he was able to rest comfortably. He reports some chest wall tenderness with deep breathing and coughing. He denies any true chest pain. He denies any known ill contacts but admits he did not wear his mask as diligently as he should bowel on vacation. He denies any GI symptoms. He reported decreased urine output while he was on vacation but denies any dysuria, hematuria or sensation of incomple
--- NOTE | 2021-05-28 10:30 | P.PNIM_ITS ---
Progress Note: A&P Assessment and Plan (1) COVID-19: Code(s): U07.1 - COVID-19 Status: Acute Assessment and Plan: * Positive COVID test was Sunday05/25/2021 * chest x-ray does not show any evidence pneumonia * CTA also does not show any pulmonary embolism or pneumonia. * Patient is very tachypneic * will start patient on remdesivir and Decadron due to tachypnea, audible wheezes, sore throat, cough * supplemental oxygen to wean saturations greater than 90% * IS and cornet therapy * antitussives * inflammatory markers: LDH 439 ferritin 31.60 will trend the a.m. * ABG shows respiratory alkalosis with hypocapnia * supportive care * patient is vaccinated x3 Pfizer (2) Elevated liver transaminase level: Code(s): R74.01 - Elevation of levels of liver transaminase levels Status: Acute Assessment and Plan: * AST/ALT elevated at 61/55 * Trend labs * Probably secondary to COVID infection * Hep panel in the am (3) Obstructive sleep apnea (adult) (pediatric): Code(s): G47.33 - Obstructive sleep apnea (adult) (pediatric) Status: Acute Assessment and Plan: * continue CPAP titrate to home settings (4) Diabetes type 2, controlled: Qualifiers: Diabetes mellitus complication status: without complication Diabetes mellitus ferry terminal supervisor insulin use: without ferry terminal supervisor use Qualified Code(s): E11.9 - Type 2 diabetes mellitus without complications Code(s): E11.9 - Type 2 diabetes mellitus without complications Status: Inactive Assessment and Plan: * glucose 270 * hold home metformin for now * Accu-Cheks a.c. HS * moderate sliding scale insulin * hypoglycemia protocol as needed. * trend glucose * adjust therapy as indicated (5) Chronic kidney disease (CKD) stage G3a/A1, moderately decreased glomerular filtration rate (GFR) between 45-59 mL/min/1.73 square meter and albuminuria creatinine ratio less than 30 mg/g: Code(s): N18.31 - Chronic kidney disease, stage 3a Status: Acute Assessment and Plan: * Creatinine is stable * Avoid nephrotoxic medications, * Trend urine output (6) BPH (benign prostatic hyperplasia): Code(s): N40.0 - Benign prostatic hyperplasia without lower urinary tract symptoms Status: Acute Assessment and Plan: * Reports symptoms of BPH with urgency and frequency * Trend urine output * Start tamsulosin * Post residual void (7) Hypertension: Code(s): I10 - Essential (primary) hypertension Status: Acute Assessment and Plan: * Current BP 148/72 * Continue home medications * Trend BP * adjust therapy as indicated Time Spent With Patient Time with patient: Greater than 35 minutes Subjective Date/time seen: 05/28/21 10:30 Interval history: Date/Time: 05/27/21 20:20 Narrative: 60-year-old male with past medical history of obesity, obstructive sleep apnea, coronary artery disease status post four-vessel CABG, grade 2 diastolic dysfunction, chronic kidney disease stage 3-4, and diabetes mellitus who presented to the ER with increased shortness of breath. He reported that he was flying home from [place] on the when he began having symptoms of scratchy throat, fever and dry nonproductive cough. He was tested for COVID today and was found to be positive. After he returned home from the COVID test he started having increased s
[2021-05-28 11:31] LABS: Glucose Point of Care 167 mg/dl (65-105)
[2021-05-28 12:31] LABS: Alanine Aminotransferase 47 U/L (4-50); Estimated CRCL calculation 67 ml/min; Estimated Glomerular Filt Rate 56
[2021-05-28 12:33] LABS: INR 1.1; Prothrombin Time 13.5 Seconds (11.1-14.7)
[2021-05-28] MEDS: TAMSULOSIN HCL 0.4 MG CAPSULE PO (12:43)
[2021-05-28] MEDS: ENOXAPARIN 40 MG/0.4 ML SYRINGE SUB-Q (12:43)
[2021-05-28] MEDS: REMDESIVIR 200 MG/NS 250 ML 200 MG/250 ML BAG 250 MG IVPB (16:05)
[2021-05-28 17:08] LABS: Glucose Point of Care 259 mg/dl (65-105)
[2021-05-28] MEDS: ACETAMINOPHEN 325 MG TABLET 650 MG PO (20:28)
[2021-05-28] MEDS: guaiFENesin/CODEINE (*CRX) 200/20 MG 10 ML SYRUP PO (20:35)
[2021-05-28 21:50] LABS: Glucose Point of Care 323 mg/dl (65-105)
[2021-05-29] VITALS (7 sets, daily range): BP systolic 119–173; BP diastolic 68–88; PULSE 56–78; RESP 18; TEMP 36.2–37; O2SAT 94–98
[2021-05-29 05:43] LABS: INR 1.1; Prothrombin Time 13.5 Seconds (11.1-14.7)
[2021-05-29 05:44] LABS: Alanine Aminotransferase 43 U/L (4-50); Estimated CRCL calculation 73 ml/min; Estimated Glomerular Filt Rate > 60
[2021-05-29 07:39] LABS: Alanine Aminotransferase 44 U/L (4-50); Alkaline Phosphatase 49 U/L (38-126); Anion Gap 7 mmol/L (8-16); Aspartate Amino Transferase 42 U/L (17-59); Bilirubin,Total 0.4 mg/dL (0.2-1.3); Blood Urea Nitrogen 21 mg/dL (9-20); Calcium 8.9 mg/dL (8.4-10.2); Carbon Dioxide 26 mmol/L (22-30); Chloride 101 mmol/L (98-107); Estimated CRCL calculation 73 ml/min; Estimated Glomerular Filt Rate > 60; Glucose 198 mg/dL (65-110); Magnesium 1.8 mg/dL (1.6-2.3); Potassium 4.6 mmol/L (3.4-5.0); Sodium 134 mmol/L (137-145)
[2021-05-29 07:53] LABS: Basophils Percent Auto 0.1 % (0.2-1.2); Hematocrit 33.7 % (42.0-52.0); Hemoglobin 10.6 g/dL (14.0-18.0); Immature Granulocyte Absolute 0.04 K/mm3 (0.00-0.031); Immature Granulocyte Percent A 0.5 % (0-0.5); Lymphocytes Absolute Auto 1.87 K/mm3 (0.9-3.2); Lymphocytes Percent Auto 21.6 % (18.3-44.2); Mean Corpuscular HGB Conc 31.5 g/dl (32-36); Mean Corpuscular Hemoglobin 26.5 pg (26-34); Mean Corpuscular Volume 84.3 fl (80-100); Mean Platelet Volume 9.9 fl (7.4-10.4); Monocytes Absolute Auto 0.5 K/mm3 (0.1-0.6); Monocytes Percent Auto 6.2 % (2.6-8.5); Neutrophils Absolute Auto 6.2 K/mm3 (1.3-6.7); Neutrophils Percent Auto 71.6 % (45.5-73.1); Platelet Count Result 255 k/mm3 (150-375); Red Cell Distribution Width 15.4 % (11.5-14.5); White Blood Count 8.7 K/mm3 (4.5-10.0)
[2021-05-29] MEDS: rOPINIRole HCL 0.25 MG TABLET PO (08:37)
[2021-05-29] MEDS: lisinopriL 20 MG TABLET 40 MG PO (08:37)
[2021-05-29] MEDS: metFORMIN HCL 500 MG TABLET PO (08:37)
[2021-05-29] MEDS: ROSUVASTATIN 10 MG TABLET 40 MG PO (08:37)
[2021-05-29] MEDS: SPIRONOLACTONE 50 MG TABLET PO (08:38)
[2021-05-29] MEDS: ASPIRIN 81 MG ENTERIC TABLET PO (08:38)
[2021-05-29] MEDS: LEVOTHYROXINE SODIUM 50 MCG TABLET PO (08:38)
[2021-05-29] MEDS: ENOXAPARIN 40 MG/0.4 ML SYRINGE SUB-Q (08:38)
[2021-05-29] MEDS: amLODIPine BESYLATE 5 MG TABLET PO (08:38)
[2021-05-29] MEDS: CLOPIDOGREL BISULFATE 75 MG TABLET PO (08:38)
[2021-05-29] MEDS: TAMSULOSIN HCL 0.4 MG CAPSULE PO (08:38)
[2021-05-29] MEDS: carvediloL 12.5 MG TABLET PO (08:38)
[2021-05-29] MEDS: ISOSORBIDE MONONITRATE 60 MG TAB.ER.24H PO (08:38)
[2021-05-29] MEDS: FENOFIBRATE NANOCRYSTALLIZED 145 MG TABLET PO (08:39)
[2021-05-29] MEDS: PARoxetine 20 MG TABLET PO (08:39)
[2021-05-29 09:34] LABS: Glucose Point of Care 170 mg/dl (65-105)
--- NOTE | 2021-05-29 09:34 | P.DS_ITS ---
DS: Admitting Diagnosis Discharge Date 05/29/21 0900 Admitting Diagnosis COVID-19 DS: Discharge Diagnosis Discharge Diagnosis (1) COVID-19: Code(s): U07.1 - COVID-19 Status: Acute Assessment and Plan: * Positive COVID test was Sunday05/25/2021 * chest x-ray does not show any evidence pneumonia * CTA also does not show any pulmonary embolism or pneumonia. * Patient is very tachypneic * will start patient on remdesivir and Decadron due to tachypnea, audible wheezes, sore throat, cough * supplemental oxygen to wean saturations greater than 90% * IS and cornet therapy * antitussives * inflammatory markers: LDH 439 ferritin 31.60 will trend the a.m. * ABG shows respiratory alkalosis with hypocapnia * supportive care * patient is vaccinated x3 Pfizer (2) Elevated liver transaminase level: Code(s): R74.01 - Elevation of levels of liver transaminase levels Status: Acute Assessment and Plan: * AST/ALT elevated at 42/44 * Trend labs * Probably secondary to COVID infection (3) Obstructive sleep apnea (adult) (pediatric): Code(s): G47.33 - Obstructive sleep apnea (adult) (pediatric) Status: Acute Assessment and Plan: * continue CPAP titrate to home settings (4) Diabetes type 2, controlled: Qualifiers: Diabetes mellitus complication status: without complication Diabetes mellitus long term care pharmacist insulin use: without long term care pharmacist use Qualified Code(s): E11.9 - Type 2 diabetes mellitus without complications Code(s): E11.9 - Type 2 diabetes mellitus without complications Status: Inactive Assessment and Plan: * glucose 198 * hold home metformin for now * Accu-Cheks a.c. HS * moderate sliding scale insulin * hypoglycemia protocol as needed. * trend glucose * adjust therapy as indicated Able to resume home metformin (5) Chronic kidney disease (CKD) stage G3a/A1, moderately decreased glomerular filtration rate (GFR) between 45-59 mL/min/1.73 square meter and albuminuria creatinine ratio less than 30 mg/g: Code(s): N18.31 - Chronic kidney disease, stage 3a Status: Acute Assessment and Plan: * Creatinine is stable * Avoid nephrotoxic medications, * Trend urine output (6) BPH (benign prostatic hyperplasia): Code(s): N40.0 - Benign prostatic hyperplasia without lower urinary tract symptoms Status: Acute Assessment and Plan: * Reports symptoms of BPH with urgency and frequency * Trend urine output * Start tamsulosin * Post residual void (7) Hypertension: Code(s): I10 - Essential (primary) hypertension Status: Acute Assessment and Plan: * Current BP 119/68 * Continue home medications * Trend BP * adjust therapy as indicated DS: Summary Hospital Course Hospital Course: patient is a 4-year-old male with a past medical history of hypertension, chronic kidney disease, COPD, CVA, diabetes who presented to the ED with complaints of shortness of breath. Patient had recently taken a trip to [place]. He tested for COVID on Sunday which that came back positive. Patient started to develop symptoms of shortness of breath, congestion, cough, sore throat, in weakness. Upon admission patient was placed on supplemental oxygen however he has been able to be successfully weaned to room air. Oxygen saturations have been greater than 95 throughout the whole e
--- NOTE | 2021-05-29 09:34 | PM.DS ---
DS: Admitting Diagnosis Discharge Date 05/29/21 0900 Admitting Diagnosis COVID-19 DS: Discharge Diagnosis Discharge Diagnosis (1) COVID-19: Code(s): U07.1 - COVID-19 Status: Acute Assessment and Plan: Positive COVID test was Sunday05/25/2021 chest x-ray does not show any evidence pneumonia CTA also does not show any pulmonary embolism or pneumonia. Patient is very tachypneic will start patient on remdesivir and Decadron due to tachypnea, audible wheezes, sore throat, cough supplemental oxygen to wean saturations greater than 90% IS and cornet therapy antitussives inflammatory markers: LDH 439 ferritin 31.60 will trend the a.m. ABG shows respiratory alkalosis with hypocapnia supportive care patient is vaccinated x3 Pfizer (2) Elevated liver transaminase level: Code(s): R74.01 - Elevation of levels of liver transaminase levels Status: Acute Assessment and Plan: AST/ALT elevated at 42/44 Trend labs Probably secondary to COVID infection (3) Obstructive sleep apnea (adult) (pediatric): Code(s): G47.33 - Obstructive sleep apnea (adult) (pediatric) Status: Acute Assessment and Plan: continue CPAP titrate to home settings (4) Diabetes type 2, controlled: Qualifiers: Diabetes mellitus complication status: without complication Diabetes mellitus detention insulin use: without termite exterminator use Qualified Code(s): E11.9 - Type 2 diabetes mellitus without complications Code(s): E11.9 - Type 2 diabetes mellitus without complications Status: Inactive Assessment and Plan: glucose 198 hold home metformin for now Accu-Cheks a.c. HS moderate sliding scale insulin hypoglycemia protocol as needed. trend glucose adjust therapy as indicated Able to resume home metformin (5) Chronic kidney disease (CKD) stage G3a/A1, moderately decreased glomerular filtration rate (GFR) between 45-59 mL/min/1.73 square meter and albuminuria creatinine ratio less than 30 mg/g: Code(s): N18.31 - Chronic kidney disease, stage 3a Status: Acute Assessment and Plan: Creatinine is stable Avoid nephrotoxic medications, Trend urine output (6) BPH (benign prostatic hyperplasia): Code(s): N40.0 - Benign prostatic hyperplasia without lower urinary tract symptoms Status: Acute Assessment and Plan: Reports symptoms of BPH with urgency and frequency Trend urine output Start tamsulosin Post residual void (7) Hypertension: Code(s): I10 - Essential (primary) hypertension Status: Acute Assessment and Plan: Current BP 119/68 Continue home medications Trend BP adjust therapy as indicated DS: Summary Hospital Course Hospital Course: patient is a 4-year-old male with a past medical history of hypertension, chronic kidney disease, COPD, CVA, diabetes who presented to the ED with complaints of shortness of breath. Patient had recently taken a trip to [place]. He tested for COVID on Sunday which that came back positive. Patient started to develop symptoms of shortness of breath, congestion, cough, sore throat, in weakness. Upon admission patient was placed on supplemental oxygen however he has been able to be successfully weaned to room air. Oxygen saturations have been greater than 95 throughout the whole entire visit. Patient was started on remdesivir and Decadron due to the patient's respiratory distress including labored breathing and tachypnea in the 30s. Liver enzymes are noted to be elevated. Glucose has been controlled and metformin has been restarted since the CTA with his been 2 days. Creatinine and BUN have been stable throughout the entire visit. Patient was started on tamsulosin for BPH symptoms including urgency and frequency. Blood pressures also been controlled and home medications have been restarted.
[2021-05-29] MEDS: REMDESIVIR 100 MG/NS 250 ML 100 MG/250 ML BAG 250 MG IVPB (10:53)
[2021-05-29] MEDS: INSULIN ASPART (*BKC) 100 UNITS/ML SUB-Q (11:46)
[2021-05-29 12:18] LABS: Glucose Point of Care 286 mg/dl (65-105)
== END 2021-05-29 14:17 | disposition home or self-care (01) | DRG 179 ==
LOC: ANHED 21:05 → ANH3MEDSUR 21:20
PROVIDERS: Emergency Medicine; Internal Medicine; Admitting Provider Internal Medicine; Emergency Provider Nurse Practitioner Family; PCP Family Medicine; Visit Provider Nurse Practitioner
DX: U07.1 COVID-19 (principal); G47.33 Obstructive sleep apnea (adult) (pediatric); E11.22 Type 2 diabetes mellitus with diabetic chronic kidney disease; I12.9 Hypertensive chronic kidney disease with stage 1 through stage 4 chronic kidney disease, or unspecified chronic kidney disease; N18.31 Chronic kidney disease, stage 3a; N40.0 Benign prostatic hyperplasia without lower urinary tract symptoms; R74.01 Elevation of levels of liver transaminase levels; J44.9 Chronic obstructive pulmonary disease, unspecified; M48.10 Ankylosing hyperostosis [Forestier], site unspecified; E78.5 Hyperlipidemia, unspecified; E66.9 Obesity, unspecified; Z68.36 Body mass index [BMI] 36.0-36.9, adult; Z95.1 Presence of aortocoronary bypass graft; Z86.73 Personal history of transient ischemic attack (TIA), and cerebral infarction without residual deficits; Z87.891 Personal history of nicotine dependence; Z79.82 Long term (current) use of aspirin
CPT/HCPCS: 36415; 36600; 71045; 71275; 80053; 82565; 82728; 82805; 82948; 83615; 83735; 84460; 85025; 85027; 85610; 87502; 93005; 94640; 96361; 96372; 96374; 96375; 96376; 99285; A9270; C9803; G0378; J1100; J1650; J1815; J1885; J2060; J7030; Q9967; U0003; U0005

== ENCOUNTER 2021-06-21 10:05 | Outpatient (CLI) | payer OTHER, SELFPAY ==
[2021-06-21 10:43] LABS: Basophils Percent Auto 0.7 % (0.2-1.2); Eosinophils Absolute Auto 0.2 K/mm3 (0-0.3); Eosinophils Percent Auto 3.2 % (0-4.4); Hematocrit 36.4 % (42.0-52.0); Hemoglobin 11.3 g/dL (14.0-18.0); Immature Granulocyte Absolute 0.02 K/mm3 (0.00-0.031); Immature Granulocyte Percent A 0.3 % (0-0.5); Lymphocytes Absolute Auto 1.95 K/mm3 (0.9-3.2); Lymphocytes Percent Auto 32.8 % (18.3-44.2); Mean Corpuscular Hemoglobin 26.6 pg (26-34); Mean Corpuscular Volume 85.6 fl (80-100); Mean Platelet Volume 9.1 fl (7.4-10.4); Monocytes Absolute Auto 0.4 K/mm3 (0.1-0.6); Monocytes Percent Auto 6.9 % (2.6-8.5); Neutrophils Absolute Auto 3.3 K/mm3 (1.3-6.7); Neutrophils Percent Auto 56.1 % (45.5-73.1); Platelet Count Result 284 k/mm3 (150-375); Red Blood Count 4.25 M/mm3 (4.6-6.20); Red Cell Distribution Width 15.7 % (11.5-14.5); White Blood Count 5.9 K/mm3 (4.5-10.0)
[2021-06-21 10:51] LABS: Alanine Aminotransferase 17 U/L (4-50); Albumin Level 4.2 g/dL (3.5-5.1); Alkaline Phosphatase 40 U/L (38-126); Anion Gap 8 mmol/L (8-16); Aspartate Amino Transferase 29 U/L (17-59); Bilirubin,Total 0.3 mg/dL (0.2-1.3); Blood Urea Nitrogen 17 mg/dL (9-20); Calcium 9.1 mg/dL (8.4-10.2); Carbon Dioxide 26 mmol/L (22-30); Chloride 102 mmol/L (98-107); Estimated Glomerular Filt Rate 47; Glucose 164 mg/dL (65-110); Phosphorus 3.3 mg/dL (2.5-4.5); Potassium 4.1 mmol/L (3.4-5.0); Sodium 136 mmol/L (137-145)
[2021-06-21 11:16] LABS: Add Urine Microscopic? YES; Appearance Urine Cloudy (Clear); Bilirubin Urine 1+ (Negative); Blood Urine Negative (Negative); Color Urine Amber (Yellow); Glucose Urine UA Negative (Negative); Ketones Urine Trace mg/dL (Negative); Leukocyte Esterase Ur Negative LEU/UL (NEGATIVE); Mucus Urine Moderate /lpf; Nitrate Urine Negative (Negative); Protein Urine 2+ mg/dL (Negative); Squamous Epithelial Cell Urine Rare /hpf (Few)
[2021-06-21 11:33] LABS: Specific Grav Ur 1.034 (1.001-1.035)
[2021-06-21 11:58] LABS: Folic Acid > 20.0 ng/mL (2.76->20)
== END 2021-06-21 10:06 | disposition home or self-care (01) ==
PROVIDERS: PCP Family Medicine; Visit Provider Physician Assistant
DX: R41.0 Disorientation, unspecified (principal); R53.83 Other fatigue; E11.29 Type 2 diabetes mellitus with other diabetic kidney complication; R74.01 Elevation of levels of liver transaminase levels; D64.9 Anemia, unspecified; I12.9 Hypertensive chronic kidney disease with stage 1 through stage 4 chronic kidney disease, or unspecified chronic kidney disease; N18.31 Chronic kidney disease, stage 3a
CPT/HCPCS: 36415; 80053; 81001; 82607; 82746; 83036; 84100; 84443; 85025; 87086; 87088

== ENCOUNTER 2021-07-21 11:17 | Outpatient (CLI) | payer OTHER, SELFPAY ==
[2021-07-21 11:54] LABS: Basophils Absolute Auto 0.1 K/mm3 (0.0-0.1); Eosinophils Absolute Auto 0.4 K/mm3 (0-0.3); Eosinophils Percent Auto 4.2 % (0-4.4); Hematocrit 35.9 % (42.0-52.0); Hemoglobin 11.4 g/dL (14.0-18.0); Immature Granulocyte Absolute 0.02 K/mm3 (0.00-0.031); Immature Granulocyte Percent A 0.2 % (0-0.5); Lymphocytes Absolute Auto 2.96 K/mm3 (0.9-3.2); Lymphocytes Percent Auto 35.3 % (18.3-44.2); Mean Corpuscular HGB Conc 31.8 g/dl (32-36); Mean Corpuscular Hemoglobin 26.4 pg (26-34); Mean Corpuscular Volume 83.1 fl (80-100); Mean Platelet Volume 9.5 fl (7.4-10.4); Monocytes Absolute Auto 0.6 K/mm3 (0.1-0.6); Monocytes Percent Auto 7.5 % (2.6-8.5); Neutrophils Absolute Auto 4.3 K/mm3 (1.3-6.7); Neutrophils Percent Auto 51.8 % (45.5-73.1); Platelet Count Result 313 k/mm3 (150-375); Red Blood Count 4.32 M/mm3 (4.6-6.20); Red Cell Distribution Width 14.5 % (11.5-14.5); White Blood Count 8.4 K/mm3 (4.5-10.0)
[2021-07-21 11:55] LABS: Appearance Urine Clear (Clear); Bilirubin Urine Negative (Negative); Blood Urine Negative (Negative); Color Urine Yellow (Yellow); Glucose Urine UA Negative (Negative); Ketones Urine Negative (Negative); Leukocyte Esterase Ur Negative LEU/UL (NEGATIVE); Nitrate Urine Negative (Negative); Protein Urine 2+ mg/dL (Negative); Specific Grav Ur >= 1.030 (1.001-1.035); Urobilinogen Urine 0.2 mg/dL (<2.0); pH Urine 5.5 (5.0-9.0)
[2021-07-21 11:56] LABS: Anion Gap 9 mmol/L (8-16); Blood Urea Nitrogen 13 mg/dL (9-20); Calcium 9.5 mg/dL (8.4-10.2); Carbon Dioxide 25 mmol/L (22-30); Chloride 104 mmol/L (98-107); Estimated Glomerular Filt Rate > 60; Glucose 144 mg/dL (65-110); Potassium 4.4 mmol/L (3.4-5.0); Sodium 138 mmol/L (137-145)
[2021-07-21 11:58] LABS: Mucus Urine Rare /lpf; RBC Urine 0-2 /hpf (0-2); Squamous Epithelial Cell Urine Rare /hpf (Few)
[2021-07-21 12:21] LABS: Iron 46 ug/dL (49-181)
[2021-07-21 12:21] LABS: Add Urine Microscopic? YES
[2021-07-21 12:31] LABS: Percent Iron Saturation 11 % (20-50)
[2021-07-21 12:58] LABS: Ferritin 8.81 ng/mL (11.1-264)
== END 2021-07-21 11:18 | disposition home or self-care (01) ==
LOC: ANHLAB 11:21
PROVIDERS: PCP Family Medicine; Visit Provider Physician Assistant
DX: D64.9 Anemia, unspecified (principal); N18.31 Chronic kidney disease, stage 3a; R31.9 Hematuria, unspecified
CPT/HCPCS: 36415; 80048; 81001; 82728; 83540; 83550; 85025; 87086; 87088

== ENCOUNTER 2022-02-02 11:51 | Outpatient (CLI) | payer OTHER, SELFPAY ==
[2022-02-02 12:45] LABS: Basophils Absolute Auto 0.1 K/mm3 (0.0-0.1); Basophils Percent Auto 0.9 % (0.2-1.2); Eosinophils Absolute Auto 0.5 K/mm3 (0-0.3); Eosinophils Percent Auto 5.5 % (0-4.4); Hematocrit 37.8 % (42.0-52.0); Hemoglobin 11.8 g/dL (14.0-18.0); Immature Granulocyte Absolute 0.02 K/mm3 (0.00-0.031); Immature Granulocyte Percent A 0.2 % (0-0.5); Lymphocytes Absolute Auto 2.82 K/mm3 (0.9-3.2); Lymphocytes Percent Auto 34.7 % (18.3-44.2); Mean Corpuscular HGB Conc 31.2 g/dl (32-36); Mean Corpuscular Hemoglobin 26.8 pg (26-34); Mean Corpuscular Volume 85.9 fl (80-100); Mean Platelet Volume 9.5 fl (7.4-10.4); Monocytes Absolute Auto 0.5 K/mm3 (0.1-0.6); Monocytes Percent Auto 6.3 % (2.6-8.5); Neutrophils Absolute Auto 4.3 K/mm3 (1.3-6.7); Neutrophils Percent Auto 52.4 % (45.5-73.1); Platelet Count Result 306 k/mm3 (150-375); Red Cell Distribution Width 14.9 % (11.5-14.5); White Blood Count 8.1 K/mm3 (4.5-10.0)
[2022-02-02 13:15] LABS: Alanine Aminotransferase 27 U/L (6-50); Albumin Level 4.5 g/dL (3.5-5.1); Alkaline Phosphatase 54 U/L (38-126); Anion Gap 10 mmol/L (8-16); Aspartate Amino Transferase 36 U/L (17-59); Bilirubin,Total 0.5 mg/dL (0.2-1.3); Blood Urea Nitrogen 13 mg/dL (9-20); Calcium 9.1 mg/dL (8.4-10.2); Carbon Dioxide 24 mmol/L (22-30); Chloride 102 mmol/L (98-107); Estimated Glomerular Filt Rate 44; Glucose 184 mg/dL (65-110); Potassium 4.5 mmol/L (3.4-5.0); Sodium 136 mmol/L (137-145)
[2022-02-02 13:20] LABS: Hemoglobin A1C 7.9 % (<5.7)
[2022-02-02 14:04] LABS: Iron 59 ug/dL (49-181)
[2022-02-02 14:13] LABS: Percent Iron Saturation 13 % (20-50)
[2022-02-02 14:17] LABS: Folic Acid > 20.0 ng/mL (2.76->20)
[2022-02-02 14:40] LABS: Ferritin 7.81 ng/mL (11.1-264)
== END 2022-02-02 11:52 | disposition home or self-care (01) ==
PROVIDERS: PCP Family Medicine; Visit Provider Physician Assistant
DX: D64.9 Anemia, unspecified (principal); E03.9 Hypothyroidism, unspecified; E11.29 Type 2 diabetes mellitus with other diabetic kidney complication; I13.0 Hypertensive heart and chronic kidney disease with heart failure and stage 1 through stage 4 chronic kidney disease, or unspecified chronic kidney disease; N18.31 Chronic kidney disease, stage 3a
CPT/HCPCS: 36415; 80053; 82607; 82728; 82746; 83036; 83540; 83550; 85025

== ENCOUNTER 2022-06-09 10:50 | Outpatient (CLI) | payer OTHER, SELFPAY ==
[2022-06-09 09:49] LABS: Basophils Absolute Auto 0.1 K/mm3 (0.0-0.1); Eosinophils Absolute Auto 0.5 K/mm3 (0-0.3); Eosinophils Percent Auto 5.2 % (0-4.4); Hematocrit 38.9 % (42.0-52.0); Hemoglobin 12.4 g/dL (14.0-18.0); Immature Granulocyte Absolute 0.03 K/mm3 (0.00-0.031); Immature Granulocyte Percent A 0.3 % (0-0.5); Lymphocytes Absolute Auto 3.34 K/mm3 (0.9-3.2); Lymphocytes Percent Auto 36.1 % (18.3-44.2); Mean Corpuscular HGB Conc 31.9 g/dl (32-36); Mean Corpuscular Hemoglobin 26.8 pg (26-34); Mean Corpuscular Volume 84.2 fl (80-100); Mean Platelet Volume 9.5 fl (7.4-10.4); Monocytes Absolute Auto 0.7 K/mm3 (0.1-0.6); Neutrophils Absolute Auto 4.6 K/mm3 (1.3-6.7); Neutrophils Percent Auto 49.4 % (45.5-73.1); Platelet Count Result 334 k/mm3 (150-375); Red Blood Count 4.62 M/mm3 (4.6-6.20); Red Cell Distribution Width 13.5 % (11.5-14.5); White Blood Count 9.3 K/mm3 (4.5-10.0)
[2022-06-09 10:01] LABS: Alanine Aminotransferase 28 U/L (6-50); Albumin Level 4.9 g/dL (3.5-5.1); Alkaline Phosphatase 57 U/L (38-126); Anion Gap 8 mmol/L (8-16); Aspartate Amino Transferase 34 U/L (17-59); Bilirubin,Total 0.5 mg/dL (0.2-1.3); Blood Urea Nitrogen 19 mg/dL (9-20); Calcium 9.3 mg/dL (8.4-10.2); Carbon Dioxide 27 mmol/L (22-30); Chloride 103 mmol/L (98-107); Estimated Glomerular Filt Rate 47; Glucose 153 mg/dL (65-110); Potassium 4.7 mmol/L (3.4-5.0); Sodium 138 mmol/L (137-145)
[2022-06-09 10:05] LABS: Iron 38 ug/dL (49-181)
[2022-06-09 10:14] LABS: Percent Iron Saturation 8 % (20-50)
[2022-06-09 10:41] LABS: Ferritin 7.82 ng/mL (11.1-264)
[2022-06-09 11:09] LABS: Folic Acid > 20.0 ng/mL (2.76->20)
[2022-06-09 12:12] LABS: Prostate Specific Antigen 1.9 ng/mL (< OR = 4.0)
[2022-06-09 12:40] LABS: Hepatitis B Surface Antigen Negative (Negative)
[2022-06-09 14:38] LABS: HIV 1/2 Ab P24 Ag Result Negative (Negative)
[2022-06-09 15:43] LABS: Hemoglobin A1C 7.8 % (<5.7)
[2022-06-12 10:10] LABS: Rapid Plasma Reagin Non-Reactive (NonReactive)
== END 2022-06-09 10:51 | disposition home or self-care (01) ==
PROVIDERS: Physician Assistant; PCP Family Medicine; Visit Provider Physician Assistant
DX: E03.9 Hypothyroidism, unspecified (principal); D64.9 Anemia, unspecified; E78.1 Pure hyperglyceridemia; E11.29 Type 2 diabetes mellitus with other diabetic kidney complication; Z12.5 Encounter for screening for malignant neoplasm of prostate; Z20.9 Contact with and (suspected) exposure to unspecified communicable disease; Z79.899 Other long term (current) drug therapy; R79.89 Other specified abnormal findings of blood chemistry; Z11.59 Encounter for screening for other viral diseases; Z72.51 High risk heterosexual behavior; I12.9 Hypertensive chronic kidney disease with stage 1 through stage 4 chronic kidney disease, or unspecified chronic kidney disease; N18.31 Chronic kidney disease, stage 3a; Z11.4 Encounter for screening for human immunodeficiency virus [HIV]
CPT/HCPCS: 36415; 80053; 82607; 82728; 82746; 83036; 83540; 83550; 84153; 84443; 85025; 86592; 86703; 87340; 87491; 87591; G0103; G0432

== ENCOUNTER 2022-09-28 13:39 | Outpatient (CLI) | payer OTHER, SELFPAY ==
[2022-09-28 14:30] LABS: Basophils Absolute Auto 0.1 K/mm3 (0.0-0.1); Basophils Percent Auto 0.8 % (0.2-1.2); Eosinophils Absolute Auto 0.3 K/mm3 (0-0.3); Eosinophils Percent Auto 4.1 % (0-4.4); Hematocrit 39.9 % (42.0-52.0); Hemoglobin 12.9 g/dL (14.0-18.0); Immature Granulocyte Absolute 0.03 K/mm3 (0.00-0.031); Immature Granulocyte Percent A 0.4 % (0-0.5); Lymphocytes Absolute Auto 2.72 K/mm3 (0.9-3.2); Lymphocytes Percent Auto 36.1 % (18.3-44.2); Mean Corpuscular HGB Conc 32.3 g/dl (32-36); Mean Corpuscular Hemoglobin 28.7 pg (26-34); Mean Corpuscular Volume 88.7 fl (80-100); Mean Platelet Volume 10.3 fl (7.4-10.4); Monocytes Absolute Auto 0.5 K/mm3 (0.1-0.6); Monocytes Percent Auto 6.5 % (2.6-8.5); Neutrophils Absolute Auto 3.9 K/mm3 (1.3-6.7); Neutrophils Percent Auto 52.1 % (45.5-73.1); Platelet Count Result 309 k/mm3 (150-375); Red Cell Distribution Width 14.8 % (11.5-14.5); White Blood Count 7.5 K/mm3 (4.5-10.0)
[2022-09-28 14:42] LABS: Alanine Aminotransferase 32 U/L (6-50); Albumin Level 4.5 g/dL (3.5-5.1); Alkaline Phosphatase 58 U/L (38-126); Anion Gap 10 mmol/L (8-16); Aspartate Amino Transferase 36 U/L (17-59); Bilirubin,Total 0.5 mg/dL (0.2-1.3); Blood Urea Nitrogen 23 mg/dL (9-20); Calcium 9.3 mg/dL (8.4-10.2); Carbon Dioxide 27 mmol/L (22-30); Chloride 98 mmol/L (98-107); Estimated Glomerular Filt Rate 38; Glucose 322 mg/dL (65-110); Potassium 4.8 mmol/L (3.4-5.0); Sodium 135 mmol/L (137-145)
[2022-09-28 17:00] LABS: Hemoglobin A1C 10.2 % (<5.7)
[2022-09-28 17:52] LABS: Iron 95 ug/dL (49-181)
[2022-09-28 18:01] LABS: Percent Iron Saturation 23 % (20-50)
== END 2022-09-28 13:40 | disposition home or self-care (01) ==
PROVIDERS: PCP Family Medicine; Visit Provider Physician Assistant
DX: D64.9 Anemia, unspecified (principal); E03.9 Hypothyroidism, unspecified; N18.31 Chronic kidney disease, stage 3a; E11.29 Type 2 diabetes mellitus with other diabetic kidney complication
CPT/HCPCS: 36415; 80053; 82728; 83036; 83540; 83550; 84443; 85025

== ENCOUNTER 2022-10-05 08:22 | Outpatient (CLI) | payer OTHER, SELFPAY ==
--- NOTE | ~2022-10-05 | CT_ITS ---
CT Scan of the Chest without Contrast: Clinical Indication: Lung cancer screening, personal history of nicotine dependence Technique: Contiguous sections were acquired throughout the chest without intravenous contrast. Dose reduction technique was used on this scan by utilizing automated exposure control and iterative recon struction technique. The dose-length product (DLP) was 358.17 mGy-cm. COMPARISON: 05/27/2021, 10/28/2019 Findings: There is no evidence of any significant mediastinal, hilar or axillary lymphadenopathy. The mediastin al soft tissues appear normal. There is no evidence of pleural or pericardial effusion. Small calcified granulomas are present. No other pulmonary nodule seen. Images through the upper abdomen reveal diffuse fatty infiltration of the liver. There is extensive D SIXTO of the thoracic spine. Impression: Lung RADS 2: Benign appearance. 12 month follow-up screening CT advised. Fatty infiltration of the liver. Reviewed, dictated and finalized at [facility]. Impression: Lung RADS 2: Benign appearance. 12 month follow-up screening CT advised. Fatty infiltration of the liver.
== END 2022-10-05 08:23 | disposition home or self-care (01) ==
PROVIDERS: PCP Family Medicine; Visit Provider Physician Assistant
DX: Z12.2 Encounter for screening for malignant neoplasm of respiratory organs (principal); Z87.891 Personal history of nicotine dependence; K76.0 Fatty (change of) liver, not elsewhere classified
CPT/HCPCS: 71271

== ENCOUNTER 2022-10-10 08:19 | Outpatient (CLI) | payer OTHER, SELFPAY ==
--- NOTE | ~2022-10-10 | SLEEP.INT_ITS ---
Split Night Report Patient Name: LORENZO PAZ Study Date: 10/10/2022 Referring Physician: Connie Marroquin PA-C Indications for Polysomnography The patient is a 62 year old male who is 5' 10 and weighs 257.0 lbs. His BMI equals 37.2. ESS =9. A polysomnogram was performed to evaluate for obstructive sleep apnea-. After 124.5 minutes of sleep time the patien t exhibited sufficient respiratory events qualifying him for a CPAP trial which was then initiated. Sleep History Lorenzo Paz Jr is a 62-year-old man with loud snoring, waking up during the night with nasal stuffi ness and a dry mouth. He has a documented history of obstructive sleep apnea. He rarely awakens from sleep feeling short of breath. He occasionally awakens at night with heartburn, belching or coughing. He frequently snores loudly e nough that others complain. He occasionally has difficulty breathing with a cold. He does not wake up gasping for leah ath at night. He rarely has breathing problems at night reported to him by others. He occasionally sweats excessively at night. He occasionally notices are high his heart pounding or beating irregularly at night. Occasionally falls asleep during the day, rarely falls asleep involuntarily, never falls asleep while driving. He never has loss of muscle ton e with strong emotion. He does not have daytime difficulties due to excessive sleepiness. He rarely feels paralyzed on waki ng or falling asleep. He does not have vivid dreamlike scenes upon awakening or falling asleep. He does not feel afraid to go to sleep. He rarely has nightmares. He rarely remembers his dreams. He frequently has racing thoughts. He rarel y feels sad or depressed. He rarely has anxiety. He occasionally has muscular tension. He frequently notices part s of his body jerking, and he frequently kicks at night. He frequently has crawling aching feelings in his legs. He frequently has leg pain at night. He rarely has morning jaw pain. He rarely grinds his teeth during sleep. He rarely is bothered by pain during the day and rarely awakened by pain at night. He occasionally wakes up feeling stiff in the m orning. He rarely wakes up with sore achy muscles. He occasionally wakes up with pain in the neck and spine. He has f atigue, depression, headaches and sexual problems. Normal bedtime is midnight, falling asleep within 30 minutes, typically waking 2-3 times at night to go to the bathroom, returning to sleep within 30 minutes. He wakes the morning between 8 and 9:00 a.m.. He keeps the [facility] schedule on weekends. He gets 6-8 hours of sleep normally. He takes naps in the afternoon or evening. A short nap lasting 10 or 15 minutes may be refreshing. Most of the time he feels adequate after an average night of sleep. H e feels better in the evening compared to other times a day. Medical History Type 2 diabetes mellitus Hypertensive heart disease and chronic kidney disease with heart failure Chronic kidney disease stage IIIA History of CVA Anemia Obstructive sleep apnea Chronic diastolic congestive heart failure Atherosclerotic heart disease Presence of aorto coronary bypass graft Hyperlipidemia Asthma with COPD Pulmonary nodules ystemic lupus erythematosus is Major depressive disorder Hypothyroidism Habits: Quit tobacco 7 years ago. Caffeine 20 oz per day. No alcohol. No recreational substances. Medications Clopidogrel 75 mg a day Aspirin 81 mg a day, delayed release Tamsulosin 0.4 mg q.a.m. Levothyroxine 50 mcg a day Montelukast 10 mg a day Resume his statin 40 mg a day Lisinopril 40 mg a day Spironolactone is a 50 mg a day Ropinirole 0.25 mg Sitagliptin phosphate 100 mg daily Fenofibrate Marianela crystallized 145 mg daily Isosorbide mononitrate 60 mg extended release daily Emtricitabine 200 mg-interest the tip being in 200 mg/tenofovir disoproxil fu
== END 2022-10-11 07:37 | disposition home or self-care (01) ==
LOC: ANHCSM 08:20
PROVIDERS: PCP Family Medicine; Visit Provider Physician Assistant
DX: G47.33 Obstructive sleep apnea (adult) (pediatric) (principal); G47.61 Periodic limb movement disorder
CPT/HCPCS: 95811

== ENCOUNTER 2023-03-12 13:35 | Emergency (ER) | payer OTHER, SELFPAY ==
--- NOTE | ~2023-03-12 | CT_ITS ---
EXAMINATION: CT lumbar spine wo con DATE: 03/12/2023 15:24 INDICATION: Low back pain post injury TECHNIQUE: Computed tomography (CT) of the lumbar spine was performed without intravenous contrast. A utomated exposure control and iterative reconstruction technique were employed. The dose-length produ ct was 1567.85 mGy-cm. COMPARISON: CT abdomen and pelvis dated 09/14/2017 FINDINGS: A degree lumbar levocurvature. 2 mm anterolisthesis L4 on L5 and 2 mm retrolisthesis L5 on S1. Chroni c compression fracture at T11 with one third anterior vertebral body height loss and at T10 and T12 w ith 20% anterior vertebral body height loss. Lumbar vertebral body heights are normal. No acute fract ures identified. There are bridging osteophytes at multiple levels in the thoracic spine consistent w ith diffuse idiopathic skeletal hyperostosis (DISH). Moderate disc height loss with suggestion of dev eloping anterior fusion at T9-T10 and T10-T11. Mild disc height loss at T11-T12 through L5-S1 with ri ght-sided predominance at L2-L3. The following disc levels are specifically discussed: T9-T10: Small left paracentral endplate osteophytes. There is moderate bilateral facet osteoarthritis . There is mild bilateral neural foraminal stenosis. There is mild central canal stenosis. T10-T11: Small posterior endplate osteophytes. There is moderate bilateral facet osteoarthritis. Ther e is moderate bilateral neural foraminal stenosis. There is mild to moderate central canal stenosis. T11-T12: Small posterior endplate osteophytes. There is moderate right and severe left facet joint os teoarthritis. There is mild right and moderate left neural foraminal stenosis. There is mild to moder ate central canal stenosis. T12-L1: Posterior disc osteophyte complex with moderate-sized endplate osteophytes and prominent hete rotopic ossification extending along the posterior margin of the disc. There is moderate bilateral fa cet joint osteoarthritis. There is left and mild to moderate right neural foraminal stenosis. There i s severe central canal stenosis. L1-L2: Disc is bulging. There is left and moderate to severe right facet joint osteoarthritis. There is moderate right and mild to moderate left neural foraminal stenosis. There is moderate central toro l stenosis. L2-L3: Disc is bulging. There is moderate bilateral facet joint osteoarthritis. There is mild bilater al neural foraminal stenosis. There is moderate central canal stenosis. L3-L4: Disc is bulging. There is moderate to severe left and severe right facet joint osteoarthritis. There is moderate left and mild to moderate right neural foraminal stenosis. There is severe central canal stenosis. L4-L5: Disc is bulging. There is severe bilateral facet joint osteoarthritis. There is moderate to se татьяна bilateral neural foraminal stenosis. There is moderate to severe central canal stenosis. L5-S1: Small central disc protrusion with associated endplate osteophyte. There is severe bilateral f acet joint osteoarthritis. There is mild right and mild to moderate left neural foraminal stenosis. T here is mild central canal stenosis. IMPRESSION: 1. Mild lumbar levocurvature with mild to moderate lumbar and lower thoracic spondylosis. This includ es multilevel moderate to severe neural foraminal and central canal stenosis as detailed above. 2. Chronic compression fractures at T10-T12. No acute osseous abnormality. Reviewed, dictated and finalized at location A. MOTIVE TECHNICIAN IMPRESSION: 1. Mild lumbar levocurvature with mild to moderate lumbar and lower thoracic sp ondylosis. This includes multilevel moderate to severe neural foraminal and jaime tral canal stenosis as detailed above. 2. Chronic compression fractures at T10-T12. No acute osseous abnormality.
[2023-03-12 13:49] VITALS: BP 147/78; PULSE 71; RESP 19; TEMP 36.7; O2SAT 97
--- NOTE | 2023-03-12 15:13 | ED.BACK ---
HPI - Back Pain/Injury General Chief Complaint: Back Pain/Injury Stated Complaint: back pain Time Seen by Provider: 03/12/23 16:21 Source: patient Mode of arrival: wheelchair Limitations: no limitations History of Present Illness HPI Narrative: This is a 62-year-old male that presents to the emergency department for low back pain. Reports a couple of days ago he was stepping down off his steps and luisa his back. Since he has had worsening low back pain on the right side. Worse with movement and relieved with rest. He took an anti-inflammatory with little relief. Denies saddle anesthesia or bowel/bladder incontinence. Related Data Home Medications Medication Instructions Recorded Confirmed clopidogrel 75 mg tablet 75 mg PO DAILY 04/15/19 01/25/23 aspirin 81 mg tablet,delayed 81 mg PO DAILY 04/23/19 01/25/23 release (Adult Low Dose Aspirin) nitroglycerin 0.4 mg sublingual 0.4 mg sublingual ONCE 11/27/22 01/25/23 tablet Allergies Allergy/AdvReac Type Severity Reaction Status Date / Time hydralazine Allergy Unknown CAUSED Verified 01/25/23 14:32 LUPUS hydroxychloroquine AdvReac Itching Verified 01/25/23 14:32 [From Plaquenil] Review of Systems Review of Systems: CONSTITUTIONAL: Denies fever MUSCULOSKELETAL: Reports back pain, joint pain, and myalgia. NEUROLOGIC: Denies numbness, or weakness. All systems reviewed & are unremarkable except as noted in HPI and below PMFSH Past Medical History Medical History Allergic rhinitis NIRANJAN positive Asthma with COPD Chronic kidney disease Stage III with baseline creatinine between 1.2-1.5 Class 2 obesity with body mass index (BMI) of 37.0 to 37.9 in adult COPD (chronic obstructive pulmonary disease) With PFTs 05/25/2019 demonstrating decreased diffusion capacity but no evidence of restrictive or obstructive ventilatory defect CVA (cerebral vascular accident) Right ocular stroke 2004 Diabetes type 2, controlled 02/09/2021 A1c 6.3 % DISH (diffuse idiopathic skeletal hyperostosis) 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 Grade II diastolic dysfunction Noted on echocardiogram 2015 Hyperlipidemia Hypertension Hypertriglyceridemia Hypothyroidism Inflammatory arthritis Obesity Obstructive sleep apnea on CPAP CPAP of 12 with polysomnogram 12 Pulmonary nodules Wellness examination Surgical History Surgical History History of cardiac catheterization (~04/2016) Occluded RCA and DENIA to RCA, occluded saphenous vein graft to 90% stenosed D1, patent [place] to LAD and patent saphenous vein graft to obtuse marginal History of tonsillectomy Hx of CABG (~04/2015) For vessel CABG performed at [facility]: BALB[place] to LAD SVG to OM SVG to 2nd diagonal RA to PDA complicated by postoperative atrial fibrillation Status post open reduction with internal fixation of fracture Ankle fracture Family History Family History Mother Carcinoma of colon COPD (chronic obstructive pulmonary disease) Father Acute myocardial infarction Age greater than 60 Osteoarthritis Other Diabetes mellitus Social History Social History Social History: The patient has been since April 2018. He lives alone but has a dog. 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 He is a former smoker and used to smoke 2-4 pack per day but quit in 2004. He denies any alcohol or drug use. Code status: Full code Surrogate decision maker: Jori (brother) Smoking packs per day: 2 Smoking cigarettes per day: 40.0 Years smoked: 30 Smoking pack-years: 60.00 Smoking status: Former smoker Tobacco type: cigarettes Second hand tobacco smoke exposure: Yes Smoking end d
[2023-03-12] MEDS: diazePAM INJ (*CRX) 10 MG/2 ML SYRINGE 5 MG IM (15:17)
[2023-03-12] MEDS: ACETAMINOPHEN 500 MG TABLET 1000 MG PO (15:17)
== END 2023-03-12 16:54 | disposition home or self-care (01) ==
LOC: ANHED 16:48
PROVIDERS: Emergency Provider Physician Assistant; PCP Family Medicine
DX: M54.50 Low back pain, unspecified (principal); E78.5 Hyperlipidemia, unspecified; E03.9 Hypothyroidism, unspecified; E11.22 Type 2 diabetes mellitus with diabetic chronic kidney disease; I12.9 Hypertensive chronic kidney disease with stage 1 through stage 4 chronic kidney disease, or unspecified chronic kidney disease; N18.9 Chronic kidney disease, unspecified; Z86.73 Personal history of transient ischemic attack (TIA), and cerebral infarction without residual deficits; Z87.891 Personal history of nicotine dependence
CPT/HCPCS: 72131; 96372; 99284; A9270; J3360

== ENCOUNTER 2023-04-15 16:05 | Observation (INO) | payer OTHER, MEDICAID, SELFPAY ==
[2023-04-15] VITALS (17 sets, daily range): BP systolic 94–149; BP diastolic 43–79; PULSE 69–96; RESP 14–23; TEMP 36.6–37; O2SAT 93–97; BMI 35.6
--- NOTE | ~2023-04-15 | XR_ITS ---
Portable chest x-ray Comparison: 05/27/2021 Clinical History: Shortness of breath Findings: Lungs are clear, without focal consolidation or pleural effusion. Cardiomediastinal silho uette is stable. Bones and soft tissues are unremarkable. Impression: Clear lungs. Reviewed, dictated and finalized at location . GER SOCIAL WORK Impression: Clear lungs.
--- NOTE | ~2023-04-15 | CT_ITS ---
Clinical Indication: Shortness of breath CT Scan of the Chest with Contrast: Technique: Contiguous sections were acquired throughout the chest after intravenous administration of 100 cc of Omnipaque 350. Dose reduction technique was used on this scan by utilizing automated expos ure control and iterative reconstruction technique. The dose-length product (DLP) was 924.17 mGy-cm. COMPARISON: 10/05/2022 Findings: There is no evidence of any significant mediastinal, hilar or axillary lymphadenopathy. There is no f illing defect in the pulmonary arterial tree to suggest pulmonary embolus. There is no evidence of ao rtic dissection or aneurysm. There is no evidence of pleural or pericardial effusion. The lungs are clear. No pulmonary nodules or infiltrates are noted. Images through the upper abdomen reveal no abnormalities. Impression: No evidence of pulmonary embolus, aortic dissection, or aortic aneurysm. Clear lungs. Reviewed, dictated and finalized at [facility]. ICATION SUPPORT DEVELOPER Impression: No evidence of pulmonary embolus, aortic dissection, or aortic aneurysm. Clear lungs.
--- NOTE | 2023-04-15 16:13 | ECG_ITS ---
Measurements Intervals [place] Rate: 80 P: 52 IL: 216 QRS: -56 QRSD: 108 T: 123 QT: 410 QTc: 475 Interpretive Statements SINUS RHYTHM WITH FIRST DEGREE AV BLOCK LEFT AXIS DEVIATION POSSIBLE LEFT ATRIAL ENLARGEMENT INCOMPLETE LEFT BUNDLE BRANCH BLOCK CONSIDER INFERIOR INFARCT, AGE INDETERMINATE ST-T WAVE ABNORMALITY IN HIGH LATERAL LEADS- CONSIDER ISCHEMIA BASELINE ARTIFACT- I, II, AVR, AVL AVF ABNORMAL ECG NO PREVIOUS ECG AVAILABLE FOR COMPARISON Electronically Signed On 04-16-2023 6:16:32 FILE DRAWER FINISHER by Blade Dwyer D.O.
[2023-04-15 16:29] LABS: Basophils Absolute Auto 0.1 K/mm3 (0.0-0.1); Basophils Percent Auto 0.7 % (0.2-1.2); Eosinophils Absolute Auto 0.2 K/mm3 (0-0.3); Eosinophils Percent Auto 1.7 % (0-4.4); Hematocrit 42.3 % (42.0-52.0); Hemoglobin 14.6 g/dL (14.0-18.0); Immature Granulocyte Absolute 0.04 K/mm3 (0.00-0.031); Immature Granulocyte Percent A 0.3 % (0-0.5); Lymphocytes Absolute Auto 2.56 K/mm3 (0.9-3.2); Lymphocytes Percent Auto 22.3 % (18.3-44.2); Mean Corpuscular HGB Conc 34.5 g/dl (32-36); Mean Corpuscular Hemoglobin 30.9 pg (26-34); Mean Corpuscular Volume 89.4 fl (80-100); Mean Platelet Volume 11.1 fl (7.4-10.4); Monocytes Absolute Auto 0.9 K/mm3 (0.1-0.6); Monocytes Percent Auto 7.7 % (2.6-8.5); Neutrophils Absolute Auto 7.7 K/mm3 (1.3-6.7); Neutrophils Percent Auto 67.3 % (45.5-73.1); Platelet Count Result 273 k/mm3 (150-375); Red Blood Count 4.73 M/mm3 (4.6-6.20); Red Cell Distribution Width 12.8 % (11.5-14.5); White Blood Count 11.5 K/mm3 (4.5-10.0)
--- NOTE | 2023-04-15 16:33 | ED.GENADULT ---
HPI - General Adult General Chief complaint: Unspecified Stated complaint: high blood sugar Time Seen by Provider: 04/15/23 16:09 History of Present Illness HPI narrative: [age] old male with history of hypertension, high cholesterol, diabetes and NC with quadruple bypass in 2015 at [facility] presenting to the emergency department for evaluation for shortness of breath and hyperglycemia. Patient states he was working on his car when he had onset shortness of breath. Patient states that the shortness of breath did begin to improve. Patient states he has been having some chest pain with this and describes ?heartburn?. Patient follows up with Dr. Boswell Related Data Home Medications Medication Instructions Recorded Confirmed aspirin 81 mg tablet,delayed 81 mg PO DAILY 04/15/23 04/15/23 release carvedilol 12.5 mg tablet 12.5 mg PO BID 04/15/23 04/15/23 clopidogrel 75 mg tablet 75 mg PO DAILY 04/15/23 04/15/23 empagliflozin 10 mg tablet 10 mg PO DAILY 04/15/23 04/15/23 emtricitabine 200 mg-tenofovir 1 tablet PO DAILY 04/15/23 04/15/23 disoproxil fumarate 300 mg tablet fenofibrate nanocrystallized 145 145 mg PO DAILY 04/15/23 04/15/23 mg tablet ferrous sulfate 325 mg (65 mg 325 mg PO DAILY 04/15/23 04/15/23 iron) tablet glipizide 5 mg tablet, extended 5 mg PO DAILY 04/15/23 04/15/23 release 24 hr isosorbide mononitrate 60 mg 60 mg PO DAILY 04/15/23 04/15/23 tablet,extended release 24 hr levothyroxine 50 mcg tablet 50 mcg PO DAILY 04/15/23 04/15/23 lisinopril 40 mg tablet 40 mg PO DAILY 04/15/23 04/15/23 metformin 500 mg tablet,extended 2,000 mg PO DAILY 04/15/23 04/15/23 release 24 hr montelukast 10 mg tablet 10 mg PO DAILY 04/15/23 04/15/23 paroxetine HCl 10 mg tablet 10 mg PO BID 04/15/23 04/15/23 ropinirole 0.25 mg tablet 0.25 mg PO DAILY 04/15/23 04/15/23 rosuvastatin 40 mg tablet 40 mg PO DAILY 04/15/23 04/15/23 spironolactone 50 mg tablet 50 mg PO DAILY 04/15/23 04/15/23 tamsulosin 0.4 mg capsule 0.4 mg PO DAILY 04/15/23 04/15/23 Allergies Allergy/AdvReac Type Severity Reaction Status Date / Time hydralazine Allergy Unknown CAUSED Verified 04/15/23 16:38 LUPUS hydroxychloroquine AdvReac Itching Verified 04/15/23 16:38 [From Plaquenil] Review of Systems Review of Systems: All systems reviewed & are unremarkable except as noted in HPI and below [facility] Past Medical History Medical History (Updated 04/15/23 @ 20:36 by Melody Rboertson PA-C) Allergic rhinitis NIRANJAN positive Asthma with COPD Chronic kidney disease Stage III with baseline creatinine between 1.2-1.5 Class 2 obesity with body mass index (BMI) of 37.0 to 37.9 in adult COPD (chronic obstructive pulmonary disease) With PFTs 05/25/2019 demonstrating decreased diffusion capacity but no evidence of restrictive or obstructive ventilatory defect Coronary artery disease CVA (cerebral vascular accident) Right ocular stroke 2004 Diffuse idiopathic skeletal hyperostosis 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 Pulmonary nodules Type 2 diabetes mellitus Surgical History Surgical History History of cardiac catheterization (~04/2016) Occluded RCA and DENIA to RCA, occluded saphenous vein graft to 90% stenosed D1, patent BALBUENA to LAD and patent saphenous vein graft to obtuse marginal History of tonsillectomy Hx of CABG (~04/2015) For vessel CABG performed at [facility]: BALBUENA to LAD SVG to OM SVG to 2nd diagonal RA to PDA complicated by postoperative atrial fibrillation Status post open reduction with internal fixation of fracture Ankle fracture Family History Family History Mother Carcinoma of colon
[2023-04-15] MEDS: SODIUM CHLORIDE 0.9% IV 1,000 ML 999 ML IV CONT ×3 (16:38→21:12)
[2023-04-15] MEDS: ALBUTEROL SULFATE NEB 2.5 MG/3 ML INH INHALATION (16:48)
[2023-04-15 16:58] LABS: D Dimer 0.76 ug/mL (<0.48)
[2023-04-15] MEDS: NITROGLYCERIN SL 0.4 MG TABLET SUBLINGUAL (17:02)
[2023-04-15 17:16] LABS: Influenza A QL RT-PCR Negative (Negative); Influenza B QL RT-PCR Negative (Negative); RSV RNA, RT-PCR Negative (Negative); SARS-CoV-2 RNA PCR Negative (Negative)
[2023-04-15 17:24] LABS: Alanine Aminotransferase 36 U/L (6-50); Albumin Level 3.8 g/dL (3.5-5.1); Alkaline Phosphatase 137 U/L (38-126); Anion Gap 14 mmol/L (8-16); Aspartate Amino Transferase 40 U/L (17-59); Bilirubin,Total 0.8 mg/dL (0.2-1.3); Blood Urea Nitrogen 31 mg/dL (9-20); Calcium 8.5 mg/dL (8.4-10.2); Carbon Dioxide 19 mmol/L (22-30); Chloride 89 mmol/L (98-107); Estimated CRCL calculation 61 ml/min; Estimated Glomerular Filt Rate 51; Glucose 712 mg/dL (65-110); Magnesium 1.6 mg/dL (1.6-2.3); NT Pro B Type Natriuretic Pept 296 pg/mL (19.9-100); Phosphorus 4.1 mg/dL (2.5-4.5); Potassium 4.6 mmol/L (3.4-5.0); Sodium 122 mmol/L (137-145); Troponin I 0.046 ng/mL (0.000-0.034)
--- NOTE | 2023-04-15 17:25 | ECG_ITS ---
Measurements Intervals [place] Rate: 79 P: 43 ID: [id number] QRS: -54 QRSD: 106 T: 113 QT: 409 QTc: 470 Interpretive Statements SINUS RHYTHM WITH FIRST DEGREE AV BLOCK LEFT AXIS DEVIATION POSSIBLE LEFT ATRIAL ENLARGEMENT INCOMPLETE LEFT BUNDLE BRANCH BLOCK POOR R WAVE PROGRESSION, ANTERIOR LEADS CONSIDER INFERIOR INFARCT, AGE INDETERMINATE ST-T WAVE ABNORMALITY IN HIGH LATERAL LEADS- CONSIDER ISCHEMIA ABNORMAL ECG COMPARED TO ECG 04/15/2023 16:10:11 NO SIGNIFICANT CHANGES Electronically Signed On 04-16-2023 6:18:08 GRADUATE RN by Blade Dwyer D.O.
[2023-04-15 17:32] LABS: Appearance Urine Clear (Clear); Bacteria Urine None Seen /hpf; Bilirubin Urine Negative (Negative); Blood Urine Negative (Negative); Color Urine Yellow (Yellow); Glucose Urine UA 3+ mg/dL (Negative); Ketones Urine Negative (Negative); Leukocyte Esterase Ur Negative LEU/UL (Negative); Need Manual Microscopic Reviewed; Nitrate Urine Negative (Negative); Non Pathogenic Casts 0-2; Protein Urine 2+ mg/dL (Negative); RBC Urine 0-2 /hpf (0-2); Specific Grav Ur 1.036 (1.001-1.035); Squamous Epithelial Cell Urine None seen /hpf (Few); Urobilinogen Urine 0.2 mg/dL (<2.0); WBC Urine 0-5 /hpf
[2023-04-15 17:33] LABS: Add Urine Microscopic? YES
[2023-04-15] MEDS: BELLADONNA ALK/PHENOB ELIX 10 ML, MAG HYDROX/ALUMINUM HYD/SIMETH 30 ML, LIDOCAINE HCL 2... PO (18:14)
[2023-04-15] MEDS: INSULIN HUMAN REGULAR (*BKC) 100 UNITS/ML 8 UNITS IV PUSH (18:15)
[2023-04-15] MEDS: SODIUM CHLORIDE 0.9% IV 1,000 ML 500 ML IV CONT (18:15)
[2023-04-15] MEDS: INSULIN HUMAN REGULAR (*BKC) 100 UNITS in SODIUM CHLORIDE 0.9% IV 99 ML 11.5 UNITS IV CONT (18:15)
[2023-04-15 19:09] LABS: Glucose Point of Care > 500 mg/dl (65-105)
--- NOTE | 2023-04-15 19:37 | ECG_ITS ---
Measurements Intervals [place] Rate: 74 P: 67 CO: 218 QRS: -49 QRSD: 110 T: 137 QT: 438 QTc: 487 Interpretive Statements SINUS RHYTHM WITH FIRST DEGREE AV BLOCK LEFT AXIS DEVIATION POSSIBLE LEFT ATRIAL ENLARGEMENT INCOMPLETE LEFT BUNDLE BRANCH BLOCK POOR R WAVE PROGRESSION, ANTERIOR LEADS ST-T WAVE ABNORMALITY IN HIGH LATERAL LEADS- CONSIDER ISCHEMIA BASELINE ARTIFACT- AVF, V3 ABNORMAL ECG COMPARED TO ECG 04/15/2023 17:31:08 NO SIGNIFICANT CHANGES Electronically Signed On 04-16-2023 6:20:48 GUEST ATTENDANT by Blade Dwyer D.O.
[2023-04-15 19:44] LABS: Hemoglobin A1C 10.2 % (<5.7)
[2023-04-15 19:54] LABS: Anion Gap 14 mmol/L (8-16); Blood Urea Nitrogen 30 mg/dL (9-20); Calcium 8.2 mg/dL (8.4-10.2); Carbon Dioxide 15 mmol/L (22-30); Chloride 96 mmol/L (98-107); Estimated CRCL calculation 61 ml/min; Estimated Glomerular Filt Rate 51; Glucose 528 mg/dL (65-110); Potassium 4.1 mmol/L (3.4-5.0); Sodium 125 mmol/L (137-145)
[2023-04-15 20:16] LABS: Troponin I 0.042 ng/mL (0.000-0.034)
--- NOTE | 2023-04-15 20:25 | PM.IMHP ---
H&P: HPI History of Present Illness Date/Time: 04/15/23 21:30 Chief Complaint: Shortness of breath and high blood sugar. Narrative: This is a pleasant 62-year-old male with coronary artery disease status post 4 vessel bypass, hypertension, hyperlipidemia, type 2 diabetes mellitus, chronic kidney disease, and hypothyroidism who presented to the emergency department via EMS from home for evaluation of shortness of breath and high blood sugar. The patient provides the following history. Over last 3 or 4 days he has not felt great with generalized malaise, fatigue, and extreme thirst. He has drink upwards of 4 to 5 gallons of fluid the last couple of days but he still feels dehydrated. Just prior to arrival he was outside changing his car battery when he began feeling short of breath with some chest discomfort which he describes further as heartburn. EMS was summoned and on their arrival his glucose was reading high. With further questioning he does admit that he has not been good about taking his medications the last several weeks and is rare for him to check his glucose at. His vital signs were stable on arrival to the ED. Labs were significant for a sodium of 122, chloride 89, carbon dioxide 19, anion gap 14, BUN 31, creatinine 1.40, glucose 712, beta hydroxybutyrate 0.50, troponin 0.046, D-dimer 0.76. No ketones were noted in the urine. No acute ST segment elevations or depressions with a on EKG. CTA of the chest showed no evidence of pulmonary embolism, aortic dissection, or aneurysm. He was given a GI cocktail which improved his chest discomfort. He also received IV insulin and a normal saline bolus. He is being admitted to the IMU in this setting for hydration, management of hyperglycemia, and close monitoring given reports of chest discomfort with elevated troponin. Review of Systems Review of Systems: Twelve systems were reviewed. No fever, chills, or sweats. No cold or flu symptoms. He denies sick contacts. No syncope or near syncope. He denies exertional chest pain. Appetite has been okay. He is hungry at this time. No vomiting. Reports some loose stools. Increasing urination due to increase liquid consumption. Denies blurry vision. No paresthesias. Except as documented, all other systems were reviewed and are negative. [facility] Past Medical History Medical History (Updated 04/15/23 @ 20:36 by Melody Robertson PA-C) Allergic rhinitis NIRANJAN positive Asthma with COPD Chronic kidney disease Stage III with baseline creatinine between 1.2-1.5 Class 2 obesity with body mass index (BMI) of 37.0 to 37.9 in adult COPD (chronic obstructive pulmonary disease) With PFTs 05/25/2019 demonstrating decreased diffusion capacity but no evidence of restrictive or obstructive ventilatory defect Coronary artery disease CVA (cerebral vascular accident) Right ocular stroke 2004 Diffuse idiopathic skeletal hyperostosis 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 Pulmonary nodules Type 2 diabetes mellitus Surgical History Surgical History History of cardiac catheterization (~04/2016) Occluded RCA and DENIA to RCA, occluded saphenous vein graft to 90% stenosed D1, patent BALBUENA to LAD and patent saphenous vein graft to obtuse marginal History of tonsillectomy Hx of CABG (~04/2015) For vessel CABG performed at [facility]: BALBUENA to LAD SVG to OM SVG to 2nd diagonal RA to PDA complicated by postoperative atrial fibrillation Status post open reduction with internal fixation of fracture Ankle fracture Family History Family History Mother Carcinoma of colon COPD (chronic obstructive pulmonary disease) Father Acute myocardial infarction
[2023-04-15] MEDS: INSULIN ASPART (*BKC) 100 UNITS/ML 12 UNITS SUB-Q (20:35)
--- NOTE | 2023-04-15 21:00 | ADMGEN ---
This patient, Virgil Paz Jr., was admitted to IMU Room 211-01. Patient/family oriented to hospital policies and general routines including ID bracelet, bed and alarms, visiting hours, pain management, procedures, bathroom and other care routines, personal items, smoking policy, room service/diet, and visiting hours. Information on how to activate the Rapid Response Team has been discussed. Patient/Family are encouraged to report perceived risks to care and to ask questions if they do not understand what they are told or what they should do.
[2023-04-15 21:10] LABS: Glucose Point of Care 416 mg/dl (65-105)
[2023-04-15 22:56] LABS: Anion Gap 9 mmol/L (8-16); Blood Urea Nitrogen 27 mg/dL (9-20); Calcium 8.2 mg/dL (8.4-10.2); Carbon Dioxide 22 mmol/L (22-30); Chloride 98 mmol/L (98-107); Estimated CRCL calculation 70 ml/min; Estimated Glomerular Filt Rate > 60; Glucose 378 mg/dL (65-110); Potassium 4.4 mmol/L (3.4-5.0); Sodium 129 mmol/L (137-145)
[2023-04-15 23:10] LABS: Troponin I 0.044 ng/mL (0.000-0.034)
[2023-04-15] MEDS: INSULIN GLARGINE (*BKC) 100 UNITS/ML 10 UNITS SUB-Q (23:19)
[2023-04-15] MEDS: carvediloL 12.5 MG TABLET PO (23:20)
[2023-04-15] MEDS: INSULIN ASPART (*BKC) 100 UNITS/ML 6 UNITS SUB-Q (23:33)
[2023-04-16] VITALS (18 sets, daily range): BP systolic 111–163; BP diastolic 67–89; PULSE 61–94; RESP 14–20; TEMP 36.4–36.9; O2SAT 95–99; BMI 35.8
[2023-04-16 04:43] LABS: Hematocrit 39.3 % (42.0-52.0); Hemoglobin 12.8 g/dL (14.0-18.0); Mean Corpuscular HGB Conc 32.6 g/dl (32-36); Mean Corpuscular Hemoglobin 29.5 pg (26-34); Mean Corpuscular Volume 90.6 fl (80-100); Platelet Count Result 218 k/mm3 (150-375); Red Blood Count 4.34 M/mm3 (4.6-6.20); Red Cell Distribution Width 12.7 % (11.5-14.5); White Blood Count 8.3 K/mm3 (4.5-10.0)
[2023-04-16 04:56] LABS: Alanine Aminotransferase 31 U/L (6-50); Albumin Level 3.4 g/dL (3.5-5.1); Alkaline Phosphatase 114 U/L (38-126); Anion Gap 6 mmol/L (8-16); Aspartate Amino Transferase 30 U/L (17-59); Bilirubin,Total 0.5 mg/dL (0.2-1.3); Blood Urea Nitrogen 23 mg/dL (9-20); Calcium 8.3 mg/dL (8.4-10.2); Carbon Dioxide 23 mmol/L (22-30); Chloride 102 mmol/L (98-107); Estimated CRCL calculation 76 ml/min; Estimated Glomerular Filt Rate > 60; Glucose 336 mg/dL (65-110); Magnesium 1.8 mg/dL (1.6-2.3); Potassium 4.3 mmol/L (3.4-5.0); Sodium 131 mmol/L (137-145)
[2023-04-16] MEDS: LEVOTHYROXINE SODIUM 50 MCG TABLET PO (06:32)
[2023-04-16 08:17] LABS: Glucose Point of Care 295 mg/dl (65-105)
[2023-04-16] MEDS: lisinopriL 20 MG TABLET 40 MG PO (08:18)
[2023-04-16] MEDS: ASPIRIN 81 MG ENTERIC TABLET PO (08:18)
[2023-04-16] MEDS: ROSUVASTATIN 10 MG TABLET 40 MG PO (08:18)
[2023-04-16] MEDS: ISOSORBIDE MONONITRATE 60 MG TAB.ER.24H PO (08:18)
[2023-04-16] MEDS: TAMSULOSIN HCL 0.4 MG CAPSULE PO (08:18)
[2023-04-16] MEDS: carvediloL 12.5 MG TABLET PO ×2 (08:19→21:15)
[2023-04-16] MEDS: EMPAGLIFLOZIN 10 MG TABLET PO (08:19)
[2023-04-16] MEDS: glipiZIDE XL 5 MG TABCR PO (08:19)
[2023-04-16] MEDS: PARoxetine 10 MG TABLET PO ×2 (08:19→16:58)
[2023-04-16] MEDS: CLOPIDOGREL BISULFATE 75 MG TABLET PO (08:19)
[2023-04-16] MEDS: MONTELUKAST SODIUM 10 MG TABLET PO (08:19)
[2023-04-16] MEDS: FERROUS GLUCONATE 324 MG TABLET PO (08:20)
[2023-04-16] MEDS: rOPINIRole HCL 0.25 MG TABLET PO (08:21)
[2023-04-16] MEDS: FENOFIBRATE NANOCRYSTALLIZED 145 MG TABLET PO (08:21)
[2023-04-16] MEDS: EMTRICITABINE-TENOFOVIR 100 MG-150 MG TABLET 2 TAB PO (08:21)
[2023-04-16] MEDS: SPIRONOLACTONE 50 MG TABLET PO (08:21)
[2023-04-16] MEDS: INSULIN ASPART (*BKC) 100 UNITS/ML SUB-Q ×4 (08:29→21:15)
[2023-04-16] MEDS: PERFLUTREN LIPID MICROSPHERES 1.5 ML VIAL DILUTED TO 10 ML TOTAL VOLUME IV PUSH (10:40)
[2023-04-16 11:53] LABS: Glucose Point of Care 334 mg/dl (65-105)
[2023-04-16] MEDS: ACETAMINOPHEN 325 MG TABLET 650 MG PO (15:36)
--- NOTE | 2023-04-16 15:36 | PM.IMPN ---
Progress Note: A&P Assessment and Plan (1) Type 2 diabetes mellitus with hyperglycemia: Code(s): E11.65 - Type 2 diabetes mellitus with hyperglycemia Status: Acute Assessment and Plan: Basal, correctional insulin (2) Elevated troponin: Code(s): R79.89 - Other specified abnormal findings of blood chemistry Status: Acute Assessment and Plan: EF >65 (3) Electrolyte abnormality: Code(s): E87.8 - Other disorders of electrolyte and fluid balance, not elsewhere classified Status: Acute (4) Dehydration: Code(s): E86.0 - Dehydration Status: Acute (5) Coronary artery disease: Code(s): I25.10 - Atherosclerotic heart disease of [place] coronary artery without angina pectoris Status: Acute (6) Hypertension: Code(s): I10 - Essential (primary) hypertension Status: Acute (7) Hypothyroidism: Code(s): E03.9 - Hypothyroidism, unspecified Status: Acute (8) Chronic kidney disease: Code(s): N18.9 - Chronic kidney disease, unspecified Status: Acute Plan The patient presented to the emergency department for evaluation shortness of breath and high glucose Several days history of polydipsia and polyuria and his glucose was over 700 on arrival to the ED. Labs showed some electrolyte abnormalities as well including low sodium and chloride though sodium was 133 when corrected for glucose. Anion gap was normal though serum bicarb was a bit low. No ketones were noted in his urine. He was given a bolus of IV insulin and crystalloid boluses with improvement in his glucose. He will be further fluid resuscitated with close monitoring of glucose. Hemoglobin A1c was 10.2% and he will be started on long-acting insulin. We discussed the importance of being compliant with his medications. I do not think he has taken his diabetes medications for at least several weeks thus will start a lower dose of Lantus and resume empagliflozin 10 mg daily, glipizide 5 mg daily, and metformin 2000 mg daily (on discharge as he received contrast). Regarding his chest pain, he further qualifies it as heartburn and reports that GI cocktail took away his symptoms. Troponin was mildly elevated and will be trended. He will be monitored in IMU overnight given his cardiac history. Echocardiogram ordered. LVH; EF >65 EKG did not demonstrate any acute ST changes. Continue dual antiplatelet therapy, rosuvastatin, carvedilol, and isosorbide mononitrate. Time Spent With Patient Time with patient: 25 - 35 minutes Subjective Date/time seen: 04/16/23 15:36 Interval history: Seen and examined; denies fresh concerns Review of Systems Review of Systems: Twelve systems were reviewed. No fever, chills, or sweats. No cold or flu symptoms. He denies sick contacts. No syncope or near syncope. He denies exertional chest pain. Appetite has been okay. He is hungry at this time. No vomiting. Reports some loose stools. Increasing urination due to increase liquid consumption. Denies blurry vision. No paresthesias. Except as documented, all other systems were reviewed and are negative. Constitutional: Constitutional: Reports no additional constitutional complaints Eyes: Eyes: Reports no additional eye complaints ENT: Reports system reviewed and no additional complaints, except as documented Cardiovascular: Cardiovascular: Reports no additional cardiovascular complaints Respiratory: Respiratory: Reports no additional respiratory complaints Gastrointestinal: Gastrointestinal: Reports no additional gastrointestinal complaints Musculoskeletal: Comments: Mariely Neurologic: Reports abnormal gait Exam Narrative: General: Nontoxic-appearing male sitting up in bed in no acute distress. Weight: 112.8 kg. BMI: 35.7. HEENT: Normocephalic, atraumatic. PERRL, EOMI. Sclera anicteric. Tacky mucous membranes. Neck: Supple. Respiratory: Lungs are clear t
[2023-04-16 16:25] LABS: Glucose Point of Care 233 mg/dl (65-105)
[2023-04-16 20:36] LABS: Glucose Point of Care 296 mg/dl (65-105)
[2023-04-16] MEDS: INSULIN GLARGINE (*BKC) 100 UNITS/ML 10 UNITS SUB-Q (21:15)
--- NOTE | 2023-04-16 22:10 | ECHO_ITS ---
Patient Info Name: Virgil Paz Age: 62 years : 1960 Gender: Male Ht: 70 in Wt: 248 lbs BSA: 2.40 m2 HR: 71 bpm BP: 123 / 72 mmHg Heart Rhythm: Sinus Rhythm Technical Quality: Fair Exam Date: 04/16/2023 9:43 AM Exam Location: Echo Lab Patient Status: Outpatient Admit Date: 04/15/2023 Staff Ordering Physician: Melody Robertson PA-C Attending Provider: Zakia Christine MD Referring Physician: Marcelo WATT; Exam Type: CA echo dop color flow w con Study Info Indications - elevated trop I25.9 - Chronic ischemic heart disease, unspecified Complete two-dimensional, color flow and Doppler transthoracic echocardiogram is performed with contrast to opacify the left ventricle and to improve the deliniation of the left ventricle endocardial borders. Contrast/Agitated Saline Contrast/Ag. Saline: Definity Amount: 1.00 ml Existing IV Access: Yes IV Access Condition: patent with no signs of infiltration Summary 1. Concentric left ventricular hypertrophy with hyperdynamic systolic function and grade 1 diastolic noncompliance. 2. Dilated left atrium. 3. Mildly sclerotic but not stenotic aortic valve. Left Ventricle Left ventricular chamber dimension is normal. Left ventricular systolic function is hyperdynamic, estimated at >70%. The left ventricular diastolic function is grade I diastolic dysfunction. Right Ventricle Right ventricular chamber dimension is normal. Left Atria Left atrial chamber dimension is moderately enlarged. Right Atria Right atrial chamber dimension is normal. Aortic Valve The aortic valve is trileaflet. There is mild aortic valve sclerosis. Pulmonic Valve The pulmonic valve is not well visualized. Mitral Valve The mitral valve has normal leaflets. Tricuspid Valve The tricuspid valve leaflets are normal. Pericardium/Pleural The pericardium appears normal. Aorta The aortic root size at the sinus of Valsalva is normal. Left Ventricular Outflow Tract Name Value Normal LVOT 2D LVOT Diameter 2.14 cm LVOT Doppler LVOT Peak Gradient 5 mmHg LVOT Mean Gradient 3 mmHg LVOT VTI 22.14 cm LVOT VTI/AV VTI Ratio 0.60 LVOT Stroke Volume 79.66 ml LVOT CO 5.64 l/min LVOT CI 2.35 L/min/m2 Pulmonic Valve Name Value Normal PV Doppler PV Peak Gradient 8 mmHg PV Regurgitation Doppler MT Peak End Diastolic Velocity 85.00 cm/s Mitral Valve Name Value Normal MV Doppler ------
[2023-04-17] VITALS (10 sets, daily range): BP systolic 137–160; BP diastolic 81–87; PULSE 58–73; RESP 14–18; TEMP 36.1–36.8; O2SAT 95–99; BMI 36.2
[2023-04-17 05:22] LABS: Basophils Absolute Auto 0.1 K/mm3 (0.0-0.1); Basophils Percent Auto 0.8 % (0.2-1.2); Eosinophils Absolute Auto 0.2 K/mm3 (0-0.3); Eosinophils Percent Auto 3.2 % (0-4.4); Hematocrit 40.7 % (42.0-52.0); Hemoglobin 13.3 g/dL (14.0-18.0); Immature Granulocyte Absolute 0.03 K/mm3 (0.00-0.031); Immature Granulocyte Percent A 0.5 % (0-0.5); Lymphocytes Percent Auto 35.6 % (18.3-44.2); Mean Corpuscular HGB Conc 32.7 g/dl (32-36); Mean Corpuscular Hemoglobin 29.9 pg (26-34); Mean Corpuscular Volume 91.5 fl (80-100); Mean Platelet Volume 10.8 fl (7.4-10.4); Monocytes Absolute Auto 0.5 K/mm3 (0.1-0.6); Monocytes Percent Auto 7.6 % (2.6-8.5); Neutrophils Absolute Auto 3.2 K/mm3 (1.3-6.7); Neutrophils Percent Auto 52.3 % (45.5-73.1); Platelet Count Result 223 k/mm3 (150-375); Red Blood Count 4.45 M/mm3 (4.6-6.20); Red Cell Distribution Width 12.9 % (11.5-14.5); White Blood Count 6.2 K/mm3 (4.5-10.0)
[2023-04-17] MEDS: LEVOTHYROXINE SODIUM 50 MCG TABLET PO (05:48)
[2023-04-17 06:05] LABS: Alanine Aminotransferase 31 U/L (6-50); Albumin Level 3.6 g/dL (3.5-5.1); Alkaline Phosphatase 110 U/L (38-126); Anion Gap 7 mmol/L (8-16); Aspartate Amino Transferase 33 U/L (17-59); Bilirubin,Total 0.8 mg/dL (0.2-1.3); Blood Urea Nitrogen 15 mg/dL (9-20); Calcium 8.7 mg/dL (8.4-10.2); Carbon Dioxide 24 mmol/L (22-30); Chloride 102 mmol/L (98-107); Estimated CRCL calculation 84 ml/min; Estimated Glomerular Filt Rate > 60; Glucose 173 mg/dL (65-110); Potassium 4.1 mmol/L (3.4-5.0); Sodium 133 mmol/L (137-145)
[2023-04-17 07:44] LABS: Glucose Point of Care 184 mg/dl (65-105)
--- NOTE | 2023-04-17 08:37 | PCOTNOTE ---
Per PT evaluation and nursing staff, pt. is independent at this time. Spoke with Hospitalist, Dr. Duong, who agreed to cancelation of OT orders, as pt. is not appropriate for services at this time. Re-order if status changes.
[2023-04-17] MEDS: ISOSORBIDE MONONITRATE 60 MG TAB.ER.24H PO (08:39)
[2023-04-17] MEDS: PARoxetine 10 MG TABLET PO (08:39)
[2023-04-17] MEDS: rOPINIRole HCL 0.25 MG TABLET PO (08:39)
[2023-04-17] MEDS: MONTELUKAST SODIUM 10 MG TABLET PO (08:39)
[2023-04-17] MEDS: lisinopriL 20 MG TABLET 40 MG PO (08:39)
[2023-04-17] MEDS: carvediloL 12.5 MG TABLET PO (08:39)
[2023-04-17] MEDS: EMTRICITABINE-TENOFOVIR 100 MG-150 MG TABLET 2 TAB PO (08:39)
[2023-04-17] MEDS: ROSUVASTATIN 10 MG TABLET 40 MG PO (08:39)
[2023-04-17] MEDS: glipiZIDE XL 5 MG TABCR PO (08:40)
[2023-04-17] MEDS: CLOPIDOGREL BISULFATE 75 MG TABLET PO (08:40)
[2023-04-17] MEDS: EMPAGLIFLOZIN 10 MG TABLET PO (08:40)
[2023-04-17] MEDS: FENOFIBRATE NANOCRYSTALLIZED 145 MG TABLET PO (08:40)
[2023-04-17] MEDS: ASPIRIN 81 MG ENTERIC TABLET PO (08:41)
[2023-04-17] MEDS: SPIRONOLACTONE 50 MG TABLET PO (08:41)
[2023-04-17] MEDS: FERROUS GLUCONATE 324 MG TABLET PO (08:41)
[2023-04-17] MEDS: ACETAMINOPHEN 325 MG TABLET 650 MG PO (08:46)
[2023-04-17 11:30] LABS: Glucose Point of Care 268 mg/dl (65-105)
[2023-04-17] MEDS: INSULIN ASPART (*BKC) 100 UNITS/ML SUB-Q (11:36)
--- NOTE | 2023-04-17 13:03 | PM.DS ---
DS: Admitting Diagnosis Discharge Date 04/17/2023 Admitting Diagnosis Hyperglycemia Shortness of breath DS: Discharge Diagnosis Discharge Diagnosis (1) Type 2 diabetes mellitus with hyperglycemia: Code(s): E11.65 - Type 2 diabetes mellitus with hyperglycemia Status: Acute Assessment and Plan: Basal, correctional insulin 04/17/23: BG is improved; will be discharged on Janumet (2) Elevated troponin: Code(s): R79.89 - Other specified abnormal findings of blood chemistry Status: Acute Assessment and Plan: EF >65 Eleavated BNP and Troponin: likely 2/2 fluid overload probably 2/2 demand ischemia Will Discharge on Furosemide (3) Electrolyte abnormality: Code(s): E87.8 - Other disorders of electrolyte and fluid balance, not elsewhere classified Status: Acute Assessment and Plan: Improved; still mildly hyperglycemic (4) Dehydration: Code(s): E86.0 - Dehydration Status: Acute Assessment and Plan: Improved (5) Coronary artery disease: Code(s): I25.10 - Atherosclerotic heart disease of [place] coronary artery without angina pectoris Status: Acute Assessment and Plan: Chronic, Stable Resume Aspirin, Statin (6) Hypertension: Code(s): I10 - Essential (primary) hypertension Status: Acute (7) Hypothyroidism: Code(s): E03.9 - Hypothyroidism, unspecified Status: Acute (8) Chronic kidney disease: Code(s): N18.9 - Chronic kidney disease, unspecified Status: Acute Plan The patient presented to the emergency department for evaluation shortness of breath and high glucose Several days history of polydipsia and polyuria and his glucose was over 700 on arrival to the ED. Labs showed some electrolyte abnormalities as well including low sodium and chloride though sodium was 133 when corrected for glucose. Anion gap was normal though serum bicarb was a bit low. No ketones were noted in his urine. He was given a bolus of IV insulin and crystalloid boluses with improvement in his glucose. He will be further fluid resuscitated with close monitoring of glucose. Hemoglobin A1c was 10.2% and he will be started on long-acting insulin. We discussed the importance of being compliant with his medications. I do not think he has taken his diabetes medications for at least several weeks thus will start a lower dose of Lantus and resume empagliflozin 10 mg daily, glipizide 5 mg daily, and metformin 2000 mg daily (on discharge as he received contrast). Regarding his chest pain, he further qualifies it as heartburn and reports that GI cocktail took away his symptoms. Troponin was mildly elevated and will be trended. He will be monitored in IMU overnight given his cardiac history. Echocardiogram ordered. LVH; EF >65 EKG did not demonstrate any acute ST changes. Continue dual antiplatelet therapy, rosuvastatin, carvedilol, and isosorbide mononitrate. 04/17/22: Will discharge today on furosemide, Janumet in addition to his previous medications DS: Summary Hospital Course Reason for hospitalization: Shortness of breath Elevated troponin Elevated BNP Hospital Course: This is a pleasant 62-year-old male with coronary artery disease status post 4 vessel bypass, hypertension, hyperlipidemia, type 2 diabetes mellitus, chronic kidney disease, and hypothyroidism who presented to the emergency department via EMS from home for evaluation of shortness of breath and high blood sugar. The patient provides the following history. Over last 3 or 4 days he has not felt great with generalized malaise, fatigue, and extreme thirst. He has drink upwards of 4 to 5 gallons of fluid the last couple of days but he still feels dehydrated. Just prior to arrival he was outside changing his car battery when he began feeling short of breath with some chest discomfort which he describes further as heartburn. EMS was summoned and on their arrival his glucose
[2023-04-20 12:49] LABS: Glucose Point of Care > 500 mg/dl (65-105)
--- NOTE | 2023-04-26 08:27 | IVDEFINITY ---
Prior to administration of IV Definity the patient was educated on the risks and benefits of the imaging enhancing agent including potential adverse side effects. The patient verbalized understanding. Allergies were verified. No exclusion criteria were identified and at least one of the following inclusion criteria were met: 1) physician request, 2) patient technically difficult to image (per the [place] [employer] guidelines of two or more segments not discernable within the apical view), or 3) questionable left ventricular function. ?
== END 2023-04-17 13:35 | disposition home or self-care (01) ==
LOC: ANHED 19:15 → ANHIMU 21:34
PROVIDERS: Emergency Medicine; Physician Assistant; Admitting Provider Internal Medicine; Emergency Provider Emergency Medicine; PCP Family Medicine; Visit Provider Internal Medicine
DX: E11.65 Type 2 diabetes mellitus with hyperglycemia (principal); R06.02 Shortness of breath; R79.89 Other specified abnormal findings of blood chemistry; E87.8 Other disorders of electrolyte and fluid balance, not elsewhere classified; E86.0 Dehydration; I25.10 Atherosclerotic heart disease of native coronary artery without angina pectoris; Z95.1 Presence of aortocoronary bypass graft; I13.10 Hypertensive heart and chronic kidney disease without heart failure, with stage 1 through stage 4 chronic kidney disease, or unspecified chronic kidney disease; E11.22 Type 2 diabetes mellitus with diabetic chronic kidney disease; N18.30 Chronic kidney disease, stage 3 unspecified; E03.9 Hypothyroidism, unspecified; I25.9 Chronic ischemic heart disease, unspecified; E78.00 Pure hypercholesterolemia, unspecified; R94.31 Abnormal electrocardiogram [ECG] [EKG]; J44.89 Other specified chronic obstructive pulmonary disease; Z23 Encounter for immunization; E66.9 Obesity, unspecified; Z68.36 Body mass index [BMI] 36.0-36.9, adult; Z20.822 Contact with and (suspected) exposure to COVID-19; G47.33 Obstructive sleep apnea (adult) (pediatric); Z99.89 Dependence on other enabling machines and devices; Z87.891 Personal history of nicotine dependence; Z86.73 Personal history of transient ischemic attack (TIA), and cerebral infarction without residual deficits; Z79.82 Long term (current) use of aspirin; Z79.1 Long term (current) use of non-steroidal anti-inflammatories (NSAID); Z79.02 Long term (current) use of antithrombotics/antiplatelets; Z79.84 Long term (current) use of oral hypoglycemic drugs; Z79.899 Other long term (current) drug therapy; Z82.5 Family history of asthma and other chronic lower respiratory diseases; Z82.49 Family history of ischemic heart disease and other diseases of the circulatory system; Z83.3 Family history of diabetes mellitus
CPT/HCPCS: 36415; 71045; 71275; 80048; 80053; 81001; 82010; 82948; 83036; 83735; 83880; 84100; 84443; 84484; 85025; 85027; 85380; 87637; 90471; 90686; 93005; 94640; 96361; 96365; 96375; 97161; 99285; A9270; C8929; G0008; G0378; J1815; J7030; Q9957; Q9967

== ENCOUNTER 2023-04-21 17:13 | Inpatient (IN) | payer OTHER, MEDICAID, SELFPAY ==
--- NOTE | ~2023-04-21 | XR_ITS ---
EXAMINATION: XR chest 2V Exam Date/Time: 04/21/2023 18:07 ROUSTABOUT CREW LEADER HISTORY: SOB Comparison: 04/15/2023. RESULT: Lines, tubes, and devices: Intact sternotomy wires. Mediastinal surgical clips and ostial markers. Lungs and pleura: Clear. Cardiomediastinal silhouette: Stable. Other: No acute osseous or upper abdominal finding. IMPRESSION: No acute cardiopulmonary process. Reviewed, dictated and finalized at location K. TABOUT CREW LEADER
--- NOTE | ~2023-04-21 | CT_ITS ---
EXAMINATION: CT brain wo con DATE: 04/21/2023 18:03 INDICATION: syncope . TECHNIQUE: Computed tomography (CT) of the head was performed without intravenous contrast. The mA wa s adjusted according to patient size. Iterative reconstruction technique was employed. The dose-lengt h product was 908.00 mGy-cm. COMPARISON: None. FINDINGS: No acute intracranial hemorrhage or extra-axial fluid collection. No hydrocephalus, mass, or herniation. No acute ischemic infarct. Unremarkable dural venous sinus attenuation. No acute osseous abnormality. Mild pansinus mucosal thickening aerated spaces are clear. Mild atrophy and moderate chronic white matter change. Atherosclerotic intracranial calcification. IMPRESSION: No acute intracranial process. Reviewed, dictated and finalized at location K. ATRIC NURSE
--- NOTE | ~2023-04-21 | NM_ITS ---
EXAMINATION: NM pulmonary perfusion DATE: 04/21/2023 21:09 INDICATION: Shortness of breath, elevated d-dimer TECHNIQUE: 5.2 mCi Tc-99m MAA was administered intravenously for perfusion images. Scintigraphic imag es of the chest were obtained. COMPARISON: X-ray chest, same date; CTPA 04/15/2023. FINDINGS: Perfusion images show normal perfusion without defects. IMPRESSION: 1. Low probability for pulmonary embolism. Reviewed, dictated and finalized at location K. IBILITY TECHNICIAN
--- NOTE | 2023-04-21 17:19 | ECG_ITS ---
Measurements Intervals [place] Rate: 83 P: [place]: 0 QRS: -63 QRSD: 110 T: 141 QT: 407 QTc: 479 Interpretive Statements ATRIAL FLUTTER/TACHYCARDIA WITH NORMAL VENTRICULAR RESPONSE LEFT AXIS DEVIATION INCOMPLETE LEFT BUNDLE BRANCH BLOCK BORDERLINE R WAVE PROGRESSION, ANTERIOR LEADS CONSIDER INFERIOR INFARCT, AGE INDETERMINATE ST-T WAVE ABNORMALITY IN HIGH LATERAL LEADS- CONSIDER ISCHEMIA BASELINE ARTIFACT- I, II, III, AVR, AVL, V1-V2 ABNORMAL ECG COMPARED TO ECG 04/15/2023 19:48:16 ATRIAL FLUTTER/TACHYCARDIA NOW PRESENT Electronically Signed On 04-22-2023 7:52:13 TEST CARRIER by Blade Dwyer D.O.
[2023-04-21 17:28] VITALS: BP 83/69; PULSE 70; RESP 16; TEMP 36.6; O2SAT 100
--- NOTE | 2023-04-21 17:38 | ED.SOB ---
HPI - SOB/Dyspnea General Chief Complaint: Shortness of Breath/Dyspnea <Onelia Zheng PA-C - Last Filed: 04/21/23 20:35> Stated Complaint: DIZZY, LOW 02 <DARY Ro Last Filed: 04/21/23 20:35> Time Seen by Provider: 04/21/23 17:19 <Onelia Zheng PA-C - Last Filed: 04/21/23 20:35> Source: patient <DARY Ro Last Filed: 04/21/23 20:35> Mode of arrival: EMS <DARY Ro Last Filed: 04/21/23 20:35> Limitations: no limitations <DARY Ro Last Filed: 04/21/23 20:35> History of Present Illness HPI Narrative: This is a 62 year old male that presents to the ER for shortness of breath. Reports he was recently discharged from the hospital and has not felt well since. Reports worsening symptoms today with generalized weakness, shortness of breath, dizziness. Also reports a cough and fevers. He called EMS and was found to be hypoxic. Patient does not usually require oxygen. Reports a syncopal episode earlier. He does not believe he hit his head. Reports superficial abrasions on his left arm and right knee. No focal injuries after fall. Denies chest pain or lower extremity edema. <Onelia Zheng PA-C - Last Filed: 04/21/23 20:35> Related Data Home Medications: Home Medications Medication Instructions Recorded Confirmed aspirin 81 mg tablet,delayed 81 mg PO DAILY 04/15/23 04/15/23 release carvedilol 12.5 mg tablet 12.5 mg PO BID 04/15/23 04/15/23 clopidogrel 75 mg tablet 75 mg PO DAILY 04/15/23 04/15/23 empagliflozin 10 mg tablet 10 mg PO DAILY 04/15/23 04/15/23 emtricitabine 200 mg-tenofovir 1 tablet PO DAILY 04/15/23 04/15/23 disoproxil fumarate 300 mg tablet fenofibrate nanocrystallized 145 145 mg PO DAILY 04/15/23 04/15/23 mg tablet ferrous sulfate 325 mg (65 mg 325 mg PO DAILY 04/15/23 04/15/23 iron) tablet glipizide 5 mg tablet, extended 5 mg PO DAILY 04/15/23 04/15/23 release 24 hr isosorbide mononitrate 60 mg 60 mg PO DAILY 04/15/23 04/15/23 tablet,extended release 24 hr levothyroxine 50 mcg tablet 50 mcg PO DAILY 04/15/23 04/15/23 lisinopril 40 mg tablet 40 mg PO DAILY 04/15/23 04/15/23 metformin 500 mg tablet,extended 2,000 mg PO DAILY 04/15/23 04/15/23 release 24 hr montelukast 10 mg tablet 10 mg PO DAILY 04/15/23 04/15/23 paroxetine HCl 10 mg tablet 10 mg PO BID 04/15/23 04/15/23 ropinirole 0.25 mg tablet 0.25 mg PO DAILY 04/15/23 04/15/23 rosuvastatin 40 mg tablet 40 mg PO DAILY 04/15/23 04/15/23 spironolactone 50 mg tablet 50 mg PO DAILY 04/15/23 04/15/23 tamsulosin 0.4 mg capsule 0.4 mg PO DAILY 04/15/23 04/15/23 <Onelia Zheng PA-C - Last Filed: 04/21/23 20:35> Allergies/Adverse Reactions: Allergies Allergy/AdvReac Type Severity Reaction Status Date / Time hydralazine Allergy Unknown CAUSED Verified 04/15/23 16:38 LUPUS hydroxychloroquine AdvReac Itching Verified 04/15/23 16:38 [From Plaquenil] <Onelia Zheng PA-C - Last Filed: 04/21/23 20:35> Review of Systems Review of Systems: CONSTITUTIONAL: Reports fever ENT: Denies rhinorrhea, congestion, sore throat CARDIOVASCULAR: Denies chest pain, or edema. RESPIRATORY: Reports cough and dyspnea. NEUROLOGIC: Reports generalized weakness. <Onelia Zheng PA-C - Last Filed: 04/21/23 20:35> All systems reviewed & are unremarkable except as noted in HPI and below <Onelia Zhneg PA-C - Last Filed: 04/21/23 20:35> PMFSH Past Medical History Medical History: Medical History (Updated 04/21/23 @ 19:23 by Onelia Zheng PAJaceC) Allergic rhinitis NIRANJAN positive Asthma with COPD Chronic kidney disease Stage III with baseline creatinine between 1.2-1.5 Class 2 obesity with body mass index (BMI) of 37.0 to 37.9 in adult COPD (chronic obstructive pulmonary disease) With PFTs 05/25/2019 demonstrating decreased diffusion capacity but no evidence of restrictive or obstructive ventilatory defect Coronary artery disea
[2023-04-21 17:41] VITALS: O2SAT 100
[2023-04-21 18:02] LABS: Basophils Absolute Auto 0.1 K/mm3 (0.0-0.1); Basophils Percent Auto 0.5 % (0.2-1.2); Eosinophils Percent Auto 0.3 % (0-4.4); Hematocrit 50.4 % (42.0-52.0); Hemoglobin 16.2 g/dL (14.0-18.0); Immature Granulocyte Absolute 0.03 K/mm3 (0.00-0.031); Immature Granulocyte Percent A 0.3 % (0-0.5); Lymphocytes Absolute Auto 2.36 K/mm3 (0.9-3.2); Lymphocytes Percent Auto 21.8 % (18.3-44.2); Mean Corpuscular HGB Conc 32.1 g/dl (32-36); Mean Corpuscular Hemoglobin 29.4 pg (26-34); Mean Corpuscular Volume 91.5 fl (80-100); Mean Platelet Volume 11.2 fl (7.4-10.4); Monocytes Absolute Auto 1.1 K/mm3 (0.1-0.6); Monocytes Percent Auto 9.9 % (2.6-8.5); Neutrophils Absolute Auto 7.3 K/mm3 (1.3-6.7); Neutrophils Percent Auto 67.2 % (45.5-73.1); Platelet Count Result 290 k/mm3 (150-375); Red Blood Count 5.51 M/mm3 (4.6-6.20); Red Cell Distribution Width 13.2 % (11.5-14.5); White Blood Count 10.9 K/mm3 (4.5-10.0)
[2023-04-21 18:17] LABS: Prothrombin Time 13.5 Seconds (11.1-14.7)
[2023-04-21 18:19] LABS: Partial Thromboplastin Time 28.1 SECONDS (22.3-36.8)
[2023-04-21 18:20] LABS: Alanine Aminotransferase 26 U/L (6-50); Albumin Level 3.7 g/dL (3.5-5.1); Alkaline Phosphatase 110 U/L (38-126); Anion Gap 12 mmol/L (8-16); Aspartate Amino Transferase 32 U/L (17-59); Bilirubin,Total 0.5 mg/dL (0.2-1.3); Blood Urea Nitrogen 41 mg/dL (9-20); Calcium 8.9 mg/dL (8.4-10.2); Carbon Dioxide 22 mmol/L (22-30); Chloride 99 mmol/L (98-107); Estimated CRCL calculation 30 ml/min; Estimated Glomerular Filt Rate 22; Glucose 322 mg/dL (65-110); Potassium 4.4 mmol/L (3.4-5.0); Sodium 133 mmol/L (137-145)
[2023-04-21 18:25] LABS: D Dimer 0.68 ug/mL (<0.48)
[2023-04-21] MEDS: SODIUM CHLORIDE 0.9% IV 1,000 ML 999 ML IV CONT (18:35)
[2023-04-21 18:39] LABS: Influenza A QL RT-PCR Negative (Negative); Influenza B QL RT-PCR Negative (Negative); RSV RNA, RT-PCR Negative (Negative); SARS-CoV-2 RNA PCR Positive (Negative)
[2023-04-21 18:39] LABS: Troponin I 0.067 ng/mL (0.000-0.034)
--- NOTE | 2023-04-21 18:43 | PC.NURSE ---
xray called and [facility] med tech will be in but medication will not be here until 2100
[2023-04-21 19:34] VITALS: BP 109/66; PULSE 82; RESP 16; O2SAT 98
[2023-04-21 19:37] LABS: Lactic Acid Reflex 1.5 mmol/L (0.7-2.0)
[2023-04-21 19:40] LABS: CRP 3.4 mg/dL (<1.0)
[2023-04-21 19:54] LABS: Procalcitonin 0.5 ng/mL
[2023-04-21 20:45] VITALS: BP 110/61; PULSE 86; RESP 20; O2SAT 98
[2023-04-21 21:18] LABS: Troponin I 0.053 ng/mL (0.000-0.034)
[2023-04-21] MEDS: REMDESIVIR 200 MG/NS 250 ML 200 MG/250 ML BAG 250 MG IVPB (21:35)
[2023-04-21 22:20] VITALS: BMI 36.6
[2023-04-21 22:25] VITALS: BMI 36.1
--- NOTE | 2023-04-21 22:26 | ADMGEN ---
This patient, Virgil Paz Jr., was admitted to Medical Room 255-01. Patient/family oriented to hospital policies and general routines including ID bracelet, bed and alarms, visiting hours, pain management, procedures, bathroom and other care routines, personal items, smoking policy, room service/diet, and visiting hours. Information on how to activate the Rapid Response Team has been discussed. Patient/Family are encouraged to report perceived risks to care and to ask questions if they do not understand what they are told or what they should do.
[2023-04-21 22:27] VITALS: BP 104/61; PULSE 60; RESP 16; TEMP 36.7; O2SAT 99
[2023-04-21 22:30] VITALS: O2SAT 99
[2023-04-21 22:46] LABS: Glucose Point of Care 328 mg/dl (65-105)
[2023-04-21] MEDS: SODIUM CHLORIDE 0.9% IV 1,000 ML 100 ML IV CONT (23:05)
--- NOTE | 2023-04-21 23:19 | PM.IMHP ---
H&P: HPI History of Present Illness Date/Time: 04/21/23 21:40 Chief Complaint: Shortness of breath and passing out Narrative: 62-year-old male with a past medical history of uncontrolled diabetes mellitus A1c 10.2 earlier this month, chronic kidney disease stage III with baseline creatinine around 1.2, COPD, obesity, obstructive sleep apnea, and other multiple cor morbidities who presented to the ER via EMS due to syncopal episode and shortness of breath. The patient had been admitted to the hospital earlier in the month and was discharged on the due to uncontrolled diabetes, dehydration, resulting in acute kidney injury. The patient presented back to the ER with persistently not feeling well since his last hospital admission. He has had worsening symptoms with generalized weakness and progressive shortness of breath. He does not usually use oxygen at home but was hypoxic upon EMS arrival to his residence. He became so weak and lightheaded that he passed out. He does not think that he hit his head but did have superficial abrasions to his left arm and right knee. He denies any calf pain, chest pain or lower extremity edema. His when his staff a mild cough. In the ER his COVID PCR was positive. His shortness of breath has been worse with exertion. On discharge from hospital during his last hospital stay it was thought that some of his shortness of breath could have been due to fluid overload from over-correction with IV fluid hydration. Patient was subsequently discharged on Lasix. He is also on lisinopril and Januvia and metformin were added medication regimen on discharge. Source of information patient report, ER report and review of past medical records. Case was discussed with ER provider and nursing staff. Review of Systems Review of Systems: Review of systems was initiated but interrupted due to staff wanting to transport the patient. Due to acuity of other patients I did not get back to reinterview the patient for review of systems. [facility] Past Medical History Medical History (Updated 04/22/23 @ 03:37 by Maryan Bates DO) Allergic rhinitis NIRANJAN positive Asthma with COPD BPH (benign prostatic hyperplasia) Chronic kidney disease Stage III with baseline creatinine between 1.2-1.5 Class 2 obesity with body mass index (BMI) of 37.0 to 37.9 in adult COPD (chronic obstructive pulmonary disease) With PFTs 05/25/2019 demonstrating decreased diffusion capacity but no evidence of restrictive or obstructive ventilatory defect Coronary artery disease CVA (cerebral vascular accident) Right ocular stroke 2004 Diffuse idiopathic skeletal hyperostosis DISH (diffuse idiopathic skeletal hyperostosis) 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 Pulmonary nodules RLS (restless legs syndrome) Type 2 diabetes mellitus Surgical History Surgical History History of cardiac catheterization (~04/2016) Occluded RCA and DENIA to RCA, occluded saphenous vein graft to 90% stenosed D1, patent [place] to LAD and patent saphenous vein graft to obtuse marginal History of tonsillectomy Hx of CABG (~04/2015) For vessel CABG performed at [facility]: BALB[place] to LAD SVG to OM SVG to 2nd diagonal RA to PDA complicated by postoperative atrial fibrillation Status post open reduction with internal fixation of fracture Ankle fracture Family History Family History Mother Carcinoma of colon COPD (chronic obstructive pulmonary disease) Father Acute myocardial infarction Age [age]
[2023-04-22] VITALS (12 sets, daily range): BP systolic 114–141; BP diastolic 62–93; PULSE 68–77; RESP 16–18; TEMP 36.1–36.7; O2SAT 95–99
[2023-04-22 00:32] LABS: Appearance Urine Cloudy (Clear); Bacteria Urine None Seen /hpf; Bilirubin Urine Negative (Negative); Blood Urine Negative (Negative); Color Urine Yellow (Yellow); Glucose Urine UA 3+ mg/dL (Negative); Ketones Urine Trace mg/dL (Negative); Leukocyte Esterase Ur Negative LEU/UL (Negative); Mucus Urine Present /lpf; Need Manual Microscopic Reviewed; Nitrate Urine Negative (Negative); Non Pathogenic Casts >20; Protein Urine 3+ mg/dL (Negative); RBC Urine 0-2 /hpf (0-2); Specific Grav Ur 1.032 (1.001-1.035); Squamous Epithelial Cell Urine Few /hpf (Few); Urobilinogen Urine 0.2 mg/dL (<2.0); WBC Urine 0-5 /hpf
[2023-04-22 00:33] LABS: Add Urine Microscopic? YES
[2023-04-22 00:37] LABS: Troponin I 0.046 ng/mL (0.000-0.034)
[2023-04-22 05:22] LABS: Hematocrit 44.3 % (42.0-52.0); Hemoglobin 14.2 g/dL (14.0-18.0); Mean Corpuscular HGB Conc 32.1 g/dl (32-36); Mean Corpuscular Hemoglobin 29.4 pg (26-34); Mean Corpuscular Volume 91.7 fl (80-100); Mean Platelet Volume 10.8 fl (7.4-10.4); Platelet Count Result 221 k/mm3 (150-375); Red Blood Count 4.83 M/mm3 (4.6-6.20); Red Cell Distribution Width 13.1 % (11.5-14.5); White Blood Count 6.2 K/mm3 (4.5-10.0)
[2023-04-22] MEDS: LEVOTHYROXINE SODIUM 50 MCG TABLET PO (05:27)
[2023-04-22 05:39] LABS: Alanine Aminotransferase 22 U/L (6-50); Albumin Level 3.2 g/dL (3.5-5.1); Alkaline Phosphatase 88 U/L (38-126); Anion Gap 12 mmol/L (8-16); Aspartate Amino Transferase 29 U/L (17-59); Bilirubin,Total 0.3 mg/dL (0.2-1.3); Blood Urea Nitrogen 39 mg/dL (9-20); Calcium 7.9 mg/dL (8.4-10.2); Carbon Dioxide 16 mmol/L (22-30); Chloride 104 mmol/L (98-107); Estimated CRCL calculation 48 ml/min; Estimated Glomerular Filt Rate 38; Glucose 278 mg/dL (65-110); Lactate Dehydrogenase 158 U/L (120-246); Potassium 4.6 mmol/L (3.4-5.0); Sodium 132 mmol/L (137-145)
--- NOTE | 2023-04-22 06:18 | PCRCNOTE ---
Rt spoke to pt regarding wearing a cpap machine. Pt states he does not wear his home cpap often. Pt refused a cpap for his hospital stay
[2023-04-22 08:40] LABS: Glucose Point of Care 221 mg/dl (65-105)
[2023-04-22] MEDS: INSULIN ASPART (*BKC) 100 UNITS/ML SUB-Q ×4 (09:09→21:16)
[2023-04-22] MEDS: ISOSORBIDE MONONITRATE 60 MG TAB.ER.24H PO (09:12)
[2023-04-22] MEDS: MONTELUKAST SODIUM 10 MG TABLET PO (09:12)
[2023-04-22] MEDS: FENOFIBRATE NANOCRYSTALLIZED 145 MG TABLET PO (09:12)
[2023-04-22] MEDS: ASPIRIN 81 MG ENTERIC TABLET PO (09:12)
[2023-04-22] MEDS: DEXAMETHASONE 2 MG TABLET 6 MG PO (09:12)
[2023-04-22] MEDS: TAMSULOSIN HCL 0.4 MG CAPSULE PO (09:12)
[2023-04-22] MEDS: glipiZIDE XL 5 MG TABCR PO (09:12)
[2023-04-22] MEDS: CLOPIDOGREL BISULFATE 75 MG TABLET PO (09:12)
[2023-04-22] MEDS: carvediloL 12.5 MG TABLET PO ×2 (09:13→21:16)
[2023-04-22] MEDS: ROSUVASTATIN 10 MG TABLET 40 MG PO (09:13)
[2023-04-22] MEDS: ENOXAPARIN 30 MG/0.3 ML SYRINGE SUB-Q (09:13)
[2023-04-22] MEDS: FERROUS SULFATE 325 MG TABLET DR PO (12:04)
[2023-04-22 12:15] LABS: Glucose Point of Care 210 mg/dl (65-105)
[2023-04-22] MEDS: PARoxetine 20 MG TABLET PO (13:22)
[2023-04-22] MEDS: rOPINIRole HCL 0.25 MG TABLET PO ×2 (13:22→21:21)
--- NOTE | 2023-04-22 14:39 | PM.IMPN ---
Progress Note: A&P Assessment and Plan (1) COVID-19: Code(s): U07.1 - COVID-19 Status: Acute Assessment and Plan: covid + on respiratory panel continue remdesivir continue Decadron scheduled albuterol inhalers supplemental oxygen at 2L NC currently - work to wean as able (2) Acute hypoxemic respiratory failure: Code(s): J96.01 - Acute respiratory failure with hypoxia Status: Acute Assessment and Plan: see above plan (3) Acute kidney injury superimposed on CKD: Code(s): N17.9 - Acute kidney failure, unspecified; N18.9 - Chronic kidney disease, unspecified Status: Acute Assessment and Plan: holding home lisinopril, diuretics, metformin, and Junamet (4) Elevated troponin: Code(s): R79.89 - Other specified abnormal findings of blood chemistry Status: Acute Assessment and Plan: minimally elevated from baseline chronic elevation. likely r/t hypoxia and exacerbated by the acute on chronic kidney injury. Troponins have trended down to his baseline. monitor on telemetry (5) Obstructive sleep apnea on CPAP: Code(s): G47.33 - Obstructive sleep apnea (adult) (pediatric); Z99.89 - Dependence on other enabling machines and devices Status: Chronic Assessment and Plan: Auto titrating CPAP has been ordered. (6) BPH (benign prostatic hyperplasia): Qualifiers: Lower urinary tract symptom presence: unspecified whether lower urinary tract symptoms present Qualified Code(s): N40.0 - Benign prostatic hyperplasia without lower urinary tract symptoms Code(s): N40.0 - Benign prostatic hyperplasia without lower urinary tract symptoms Status: Chronic Assessment and Plan: continue home Flomax. Will monitor for signs of urinary retention (7) Type 2 diabetes mellitus with hyperglycemia: Code(s): E11.65 - Type 2 diabetes mellitus with hyperglycemia Status: Acute Assessment and Plan: history of poorly-controlled diabetes. high-dose sliding scale insulin with Accu-Cheks a.c. HS. would benefit from long-acting insulin likely on discharge for improved glycemic control. continue to closely monitor while on steroids Subjective Date/time seen: 04/22/23 14:39 Interval history: Patient in no acute distress this morning. Denies SOB or chest pain. Will order PT as he has been having episodes of syncope and deconditioning while at home. Continue remdesivir, steroids and monitor BS. Will work to wean off oxygen as able. Review of Systems Review of Systems: All systems reviewed & are unremarkable except as noted in HPI and below Exam Narrative: GENERAL: well-appearing, well-nourished, and in no acute distress. HEAD: Normocephalic, atraumatic. EYES: PERRLA and EOMI. NECK: Supple. No adenopathy or masses. CHEST: Clear to auscultation. No respiratory distress. No wheezes, rales or rhonchi HEART: RRR. No murmur heard. Normal peripheral pulses. EXTREMITIES: Normal range of motion. No edema. SKIN: Warm, dry, no rash. NEURO: No focal deficits. Alert and oriented x3. PSYCH: Normal mood and affect Objective Data Vital Signs Vital Signs: Vital Signs - 24 hr 04/21/23 17:28 04/21/23 17:41 04/21/23 19:34 Temperature 97.9 F Pulse Rate 70 82 Respiratory Rate 16 16 Blood Pressure 83/69 L 109/66 Pulse Oximetry 100 100 98 Oxygen Delivery Nasal Cannula Nasal Cannula Oxygen Flow Rate 2 2 04/21/23 20:45 04/21/23 22:27 04/22/23 00:00 Temperature 98.1 F Pulse Rate 86 60 73 Respiratory Rate 20 16 Blood Pressure 110/61 104/61 Pulse Oximetry 98 99 Oxygen Delivery Oxygen Flow Rate 04/21/23 22:30 04/22/23 04:00 04/22/23 06:57 Temperature 98.0 F Pulse Rate 69 72 Respiratory Rate 18 Blood Pressure 136/88 Pulse Oximetry 99 99 Oxygen Delivery Nasal Cannula Oxygen Flow Rate 2 04/22/23 09:13 04/22/23 09:24 04/22/23 08:00 Temperature 96.9 F
[2023-04-22 17:22] LABS: Glucose Point of Care 316 mg/dl (65-105)
[2023-04-22 21:22] LABS: Glucose Point of Care 303 mg/dl (65-105)
[2023-04-22] MEDS: REMDESIVIR 100 MG/NS 250 ML 100 MG/250 ML BAG 250 MG IVPB (21:25)
[2023-04-22] MEDS: ZOLPIDEM TARTRATE (*CRX) 5 MG TABLET PO (23:58)
[2023-04-23] VITALS (14 sets, daily range): BP systolic 120–145; BP diastolic 60–88; PULSE 60–77; RESP 14–20; TEMP 35.9–36.7; O2SAT 95–100
[2023-04-23 05:29] LABS: Basophils Percent Auto 0.2 % (0.2-1.2); Hematocrit 40.3 % (42.0-52.0); Hemoglobin 12.9 g/dL (14.0-18.0); Immature Granulocyte Absolute 0.02 K/mm3 (0.00-0.031); Immature Granulocyte Percent A 0.3 % (0-0.5); Lymphocytes Absolute Auto 1.84 K/mm3 (0.9-3.2); Lymphocytes Percent Auto 30.8 % (18.3-44.2); Mean Corpuscular Hemoglobin 29.3 pg (26-34); Mean Corpuscular Volume 91.4 fl (80-100); Mean Platelet Volume 10.9 fl (7.4-10.4); Monocytes Absolute Auto 0.6 K/mm3 (0.1-0.6); Neutrophils Absolute Auto 3.5 K/mm3 (1.3-6.7); Neutrophils Percent Auto 58.7 % (45.5-73.1); Platelet Count Result 202 k/mm3 (150-375); Red Blood Count 4.41 M/mm3 (4.6-6.20); Red Cell Distribution Width 12.8 % (11.5-14.5)
[2023-04-23 05:33] LABS: Magnesium 1.6 mg/dL (1.6-2.3); Phosphorus 2.8 mg/dL (2.5-4.5)
[2023-04-23 05:38] LABS: Anion Gap 8 mmol/L (8-16); Blood Urea Nitrogen 28 mg/dL (9-20); Calcium 8.2 mg/dL (8.4-10.2); Carbon Dioxide 22 mmol/L (22-30); Chloride 101 mmol/L (98-107); Estimated CRCL calculation 70 ml/min; Estimated Glomerular Filt Rate > 60; Glucose 204 mg/dL (65-110); Potassium 3.9 mmol/L (3.4-5.0); Sodium 131 mmol/L (137-145)
[2023-04-23] MEDS: LEVOTHYROXINE SODIUM 50 MCG TABLET PO (06:02)
[2023-04-23 08:30] LABS: Glucose Point of Care 190 mg/dl (65-105)
[2023-04-23] MEDS: carvediloL 12.5 MG TABLET PO ×2 (09:51→21:13)
[2023-04-23] MEDS: ROSUVASTATIN 10 MG TABLET 40 MG PO (09:52)
[2023-04-23] MEDS: DEXAMETHASONE 2 MG TABLET 6 MG PO (09:52)
[2023-04-23] MEDS: ASPIRIN 81 MG ENTERIC TABLET PO (09:52)
[2023-04-23] MEDS: MONTELUKAST SODIUM 10 MG TABLET PO (09:52)
[2023-04-23] MEDS: FENOFIBRATE NANOCRYSTALLIZED 145 MG TABLET PO (09:52)
[2023-04-23] MEDS: ENOXAPARIN 40 MG/0.4 ML SYRINGE SUB-Q (09:53)
[2023-04-23] MEDS: PARoxetine 20 MG TABLET PO (09:53)
[2023-04-23] MEDS: CLOPIDOGREL BISULFATE 75 MG TABLET PO (09:53)
[2023-04-23] MEDS: ISOSORBIDE MONONITRATE 60 MG TAB.ER.24H PO (09:53)
[2023-04-23] MEDS: TAMSULOSIN HCL 0.4 MG CAPSULE PO (09:53)
[2023-04-23] MEDS: glipiZIDE XL 5 MG TABCR PO (09:53)
[2023-04-23] MEDS: rOPINIRole HCL 0.25 MG TABLET PO ×3 (09:59→21:13)
[2023-04-23 11:49] LABS: Glucose Point of Care 204 mg/dl (65-105)
[2023-04-23] MEDS: FERROUS SULFATE 325 MG TABLET DR PO (12:23)
[2023-04-23] MEDS: INSULIN ASPART (*BKC) 100 UNITS/ML SUB-Q ×3 (12:24→21:13)
--- NOTE | 2023-04-23 12:44 | PM.IMPN ---
Progress Note: A&P Assessment and Plan (1) COVID-19: Code(s): U07.1 - COVID-19 Status: Acute Assessment and Plan: covid + on respiratory panel continue remdesivir continue Decadron scheduled albuterol inhalers supplemental oxygen at 2L NC currently - work to wean as able (2) Acute hypoxemic respiratory failure: Code(s): J96.01 - Acute respiratory failure with hypoxia Status: Acute Assessment and Plan: see above plan (3) Acute kidney injury superimposed on CKD: Code(s): N17.9 - Acute kidney failure, unspecified; N18.9 - Chronic kidney disease, unspecified Status: Acute Assessment and Plan: holding home lisinopril, diuretics, metformin, and Junamet (4) Elevated troponin: Code(s): R79.89 - Other specified abnormal findings of blood chemistry Status: Acute Assessment and Plan: minimally elevated from baseline chronic elevation. likely r/t hypoxia and exacerbated by the acute on chronic kidney injury. Troponins have trended down to his baseline. monitor on telemetry (5) Obstructive sleep apnea on CPAP: Code(s): G47.33 - Obstructive sleep apnea (adult) (pediatric); Z99.89 - Dependence on other enabling machines and devices Status: Chronic Assessment and Plan: Auto titrating CPAP has been ordered. (6) BPH (benign prostatic hyperplasia): Qualifiers: Lower urinary tract symptom presence: unspecified whether lower urinary tract symptoms present Qualified Code(s): N40.0 - Benign prostatic hyperplasia without lower urinary tract symptoms Code(s): N40.0 - Benign prostatic hyperplasia without lower urinary tract symptoms Status: Chronic Assessment and Plan: continue home Flomax. Will monitor for signs of urinary retention (7) Type 2 diabetes mellitus with hyperglycemia: Code(s): E11.65 - Type 2 diabetes mellitus with hyperglycemia Status: Acute Assessment and Plan: history of poorly-controlled diabetes. high-dose sliding scale insulin with Accu-Cheks a.c. HS. would benefit from long-acting insulin likely on discharge for improved glycemic control. continue to closely monitor while on steroids Subjective Date/time seen: 04/23/23 12:44 Interval history: Patient in no acute distress this morning. Reporting feeling a little better than yesterday. Denies SOB or chest pain. Continue remdesivir, steroids and monitor BS. Will work to wean off oxygen as able. BS have remained stable while on steroids. Review of Systems Review of Systems: All systems reviewed & are unremarkable except as noted in HPI and below Exam Narrative: GENERAL: well-appearing, well-nourished, and in no acute distress. HEAD: Normocephalic, atraumatic. EYES: PERRLA and EOMI. NECK: Supple. No adenopathy or masses. CHEST: Clear to auscultation. No respiratory distress. No wheezes, rales or rhonchi HEART: RRR. No murmur heard. Normal peripheral pulses. EXTREMITIES: Normal range of motion. No edema. SKIN: Warm, dry, no rash. NEURO: No focal deficits. Alert and oriented x3. PSYCH: Normal mood and affect Objective Data Vital Signs Vital Signs: Vital Signs - 24 hr 04/22/23 13:11 04/22/23 15:25 04/22/23 16:00 Temperature 97.8 F Pulse Rate 77 75 Respiratory Rate 18 Blood Pressure 114/62 Pulse Oximetry 99 Oxygen Delivery Nasal Cannula Oxygen Flow Rate 2 04/22/23 19:32 04/22/23 21:16 04/22/23 20:00 Temperature 97.7 F Pulse Rate 73 73 Respiratory Rate 16 Blood Pressure 140/80 Pulse Oximetry 95 98 Oxygen Delivery Nasal Cannula Oxygen Flow Rate 1 04/22/23 20:00 04/23/23 00:00 04/23/23 04:00 Temperature Pulse Rate 74 73 72 Respiratory Rate Blood Pressure Pulse Oximetry Oxygen Delivery Oxygen Flow Rate 04/23/23 07:24 04/23/23 08:41 04/23/23 09:49 Temperature 98.0 F Pulse Rate 73 74 Respiratory Rate 16 14 Blood
--- NOTE | 2023-04-23 15:12 | ECG_ITS ---
Measurements Intervals [place] Rate: 79 P: 258 MS: 274 QRS: -42 QRSD: 111 T: 133 QT: 428 QTc: 492 Interpretive Statements ATRIAL FLUTTER WITH NORMAL VENTRICULAR RESPONSE LEFT AXIS DEVIATION INCOMPLETE LEFT BUNDLE BRANCH BLOCK ST-T WAVE ABNORMALITY IN HIGH LATERAL LEADS- CONSIDER ISCHEMIA BASELINE ARTIFACT- III, AVR, AVF ABNORMAL ECG COMPARED TO ECG 04/21/2023 17:24:04 NO SIGNIFICANT CHANGES Electronically Signed On 04-23-2023 17:49:41 JUKE BOX MECHANIC by Blade Dwyer D.O.
[2023-04-23 16:11] LABS: Glucose Point of Care 362 mg/dl (65-105)
[2023-04-23] MEDS: REMDESIVIR 100 MG/NS 250 ML 100 MG/250 ML BAG 250 MG IVPB (21:13)
[2023-04-23] MEDS: ZOLPIDEM TARTRATE (*CRX) 5 MG TABLET PO (21:13)
[2023-04-24] VITALS (12 sets, daily range): BP systolic 117–146; BP diastolic 70–90; PULSE 48–76; RESP 16–20; TEMP 36.3–36.6; O2SAT 96–99
[2023-04-24 00:53] LABS: Glucose Point of Care 279 mg/dl (65-105)
[2023-04-24 05:39] LABS: Basophils Percent Auto 0.2 % (0.2-1.2); Immature Granulocyte Absolute 0.01 K/mm3 (0.00-0.031); Immature Granulocyte Percent A 0.2 % (0-0.5); Lymphocytes Absolute Auto 2.21 K/mm3 (0.9-3.2); Lymphocytes Percent Auto 39.6 % (18.3-44.2); Mean Corpuscular HGB Conc 33.3 g/dl (32-36); Mean Corpuscular Hemoglobin 29.5 pg (26-34); Mean Corpuscular Volume 88.4 fl (80-100); Mean Platelet Volume 10.1 fl (7.4-10.4); Monocytes Absolute Auto 0.5 K/mm3 (0.1-0.6); Monocytes Percent Auto 8.2 % (2.6-8.5); Neutrophils Absolute Auto 2.9 K/mm3 (1.3-6.7); Neutrophils Percent Auto 51.8 % (45.5-73.1); Platelet Count Result 183 k/mm3 (150-375); Red Blood Count 4.41 M/mm3 (4.6-6.20); Red Cell Distribution Width 12.5 % (11.5-14.5); White Blood Count 5.6 K/mm3 (4.5-10.0)
[2023-04-24 05:49] LABS: Anion Gap 8 mmol/L (8-16); Blood Urea Nitrogen 21 mg/dL (9-20); Calcium 8.2 mg/dL (8.4-10.2); Carbon Dioxide 24 mmol/L (22-30); Chloride 100 mmol/L (98-107); Estimated CRCL calculation 76 ml/min; Estimated Glomerular Filt Rate > 60; Glucose 174 mg/dL (65-110); Magnesium 1.6 mg/dL (1.6-2.3); Potassium 3.6 mmol/L (3.4-5.0); Sodium 132 mmol/L (137-145)
[2023-04-24] MEDS: LEVOTHYROXINE SODIUM 50 MCG TABLET PO (05:50)
[2023-04-24 06:09] LABS: D Dimer 0.49 ug/mL (<0.48)
[2023-04-24 07:28] LABS: Alanine Aminotransferase 20 U/L (6-50); Albumin Level 3.1 g/dL (3.5-5.1); Alkaline Phosphatase 73 U/L (38-126); Aspartate Amino Transferase 24 U/L (17-59); Bilirubin,Total 0.4 mg/dL (0.2-1.3)
[2023-04-24 07:30] LABS: Prothrombin Time 13.4 Seconds (11.1-14.7)
[2023-04-24 08:47] LABS: Glucose Point of Care 158 mg/dl (65-105)
[2023-04-24] MEDS: ASPIRIN 81 MG ENTERIC TABLET PO (10:21)
[2023-04-24] MEDS: CLOPIDOGREL BISULFATE 75 MG TABLET PO (10:21)
[2023-04-24] MEDS: ISOSORBIDE MONONITRATE 60 MG TAB.ER.24H PO (10:21)
[2023-04-24] MEDS: DEXAMETHASONE 2 MG TABLET 6 MG PO (10:22)
[2023-04-24] MEDS: glipiZIDE XL 5 MG TABCR PO (10:22)
[2023-04-24] MEDS: PARoxetine 20 MG TABLET PO (10:22)
[2023-04-24] MEDS: FENOFIBRATE NANOCRYSTALLIZED 145 MG TABLET PO (10:22)
[2023-04-24] MEDS: carvediloL 12.5 MG TABLET PO ×2 (10:22→21:47)
[2023-04-24] MEDS: MONTELUKAST SODIUM 10 MG TABLET PO (10:22)
[2023-04-24] MEDS: TAMSULOSIN HCL 0.4 MG CAPSULE PO (10:25)
[2023-04-24] MEDS: rOPINIRole HCL 0.25 MG TABLET PO ×3 (10:29→21:47)
[2023-04-24 12:04] LABS: Glucose Point of Care 180 mg/dl (65-105)
[2023-04-24] MEDS: FERROUS SULFATE 325 MG TABLET DR PO (12:41)
--- NOTE | 2023-04-24 15:21 | PM.IMPN ---
Progress Note: A&P Assessment and Plan (1) COVID-19: Code(s): U07.1 - COVID-19 Status: Acute Assessment and Plan: covid + on respiratory panel continue remdesivir continue Decadron scheduled albuterol inhalers now on room air atrial flutter on EKG x2, this is new, likely secondary to covid start on Eliquis 5mg, if no coverage/too expensive then may switch to xarelto (2) Acute hypoxemic respiratory failure: Code(s): J96.01 - Acute respiratory failure with hypoxia Status: Acute Assessment and Plan: see above plan (3) Acute kidney injury superimposed on CKD: Code(s): N17.9 - Acute kidney failure, unspecified; N18.9 - Chronic kidney disease, unspecified Status: Acute Assessment and Plan: holding home lisinopril, diuretics, metformin, and Junamet (4) Elevated troponin: Code(s): R79.89 - Other specified abnormal findings of blood chemistry Status: Resolved Assessment and Plan: minimally elevated from baseline chronic elevation. likely r/t hypoxia and exacerbated by the acute on chronic kidney injury. Troponins have trended down to his baseline. monitor on telemetry (5) Obstructive sleep apnea on CPAP: Code(s): G47.33 - Obstructive sleep apnea (adult) (pediatric); Z99.89 - Dependence on other enabling machines and devices Status: Chronic Assessment and Plan: Auto titrating CPAP (6) BPH (benign prostatic hyperplasia): Qualifiers: Lower urinary tract symptom presence: unspecified whether lower urinary tract symptoms present Qualified Code(s): N40.0 - Benign prostatic hyperplasia without lower urinary tract symptoms Code(s): N40.0 - Benign prostatic hyperplasia without lower urinary tract symptoms Status: Chronic Assessment and Plan: continue home Flomax. Will monitor for signs of urinary retention (7) Type 2 diabetes mellitus with hyperglycemia: Code(s): E11.65 - Type 2 diabetes mellitus with hyperglycemia Status: Acute Assessment and Plan: history of poorly-controlled diabetes. high-dose sliding scale insulin with Accu-Cheks a.c. HS. would benefit from long-acting insulin likely on discharge for improved glycemic control. discussed w/ patient to follow up with PCP continue to closely monitor while on steroids Subjective Date/time seen: 04/24/23 15:21 Interval history: Patient in no acute distress this morning, now on room air. Denies SOB or chest pain. Continue remdesivir, steroids and monitor BS. Patient has been in atrial flutter, likely secondary to covid as this is new and he is asymptomatic. Nonetheless, discussed with Nika cardio GLASS VIAL FILLER and will start on Eliquis 5mg and follow up with Margaret Boswell whom he is already established outpatient. BS show NGTD. Patient preferred to stay to receive last dose of remdesivir tomorrow morning and then can be d/c home as long as remains stable. Review of Systems Review of Systems: All systems reviewed & are unremarkable except as noted in HPI and below Exam Narrative: GENERAL: well-appearing, well-nourished, and in no acute distress. HEAD: Normocephalic, atraumatic. EYES: PERRLA and EOMI. NECK: Supple. No adenopathy or masses. CHEST: Clear to auscultation. No respiratory distress. No wheezes, rales or rhonchi HEART: RRR. No murmur heard. Normal peripheral pulses. EXTREMITIES: Normal range of motion. No edema. SKIN: Warm, dry, no rash. NEURO: No focal deficits. Alert and oriented x3. PSYCH: Normal mood and affect Objective Data Vital Signs Vital Signs: Vital Signs - 24 hr 04/23/23 16:00 04/23/23 16:00 04/23/23 20:50 Temperature 96.8 F L Pulse Rate 71 77 Respiratory Rate 18 Blood Pressure 120/60 Pulse Oximetry 97 95 Oxygen Delivery Nasal Cannula Oxygen Flow Rate 1 04/23/23 20:00 04/23/23 21:13 04/23/23 20:00 Temperature Pulse Rate 76 75 Respiratory Rate Bl
[2023-04-24 17:13] LABS: Glucose Point of Care 287 mg/dl (65-105)
[2023-04-24] MEDS: INSULIN ASPART (*BKC) 100 UNITS/ML SUB-Q ×2 (17:56→21:50)
[2023-04-24] MEDS: REMDESIVIR 100 MG/NS 250 ML 100 MG/250 ML BAG 250 MG IVPB (21:46)
[2023-04-24] MEDS: ZOLPIDEM TARTRATE (*CRX) 5 MG TABLET PO (21:47)
[2023-04-24] MEDS: guaiFENesin 12 HR 600 MG TABCR PO (21:47)
[2023-04-24] MEDS: APIXABAN 5 MG TABLET PO (21:47)
[2023-04-24 21:58] LABS: Glucose Point of Care 325 mg/dl (65-105)
[2023-04-24 21:58] LABS: Glucose Point of Care 321 mg/dl (65-105)
[2023-04-25] VITALS (7 sets, daily range): BP systolic 145–149; BP diastolic 80–90; PULSE 40–78; RESP 20; TEMP 36.1–36.6; O2SAT 96–97
[2023-04-25 05:51] LABS: Hematocrit 40.3 % (42.0-52.0); Hemoglobin 13.2 g/dL (14.0-18.0); Mean Corpuscular HGB Conc 32.8 g/dl (32-36); Mean Corpuscular Hemoglobin 29.3 pg (26-34); Mean Corpuscular Volume 89.4 fl (80-100); Mean Platelet Volume 10.8 fl (7.4-10.4); Platelet Count Result 178 k/mm3 (150-375); Red Blood Count 4.51 M/mm3 (4.6-6.20); Red Cell Distribution Width 12.4 % (11.5-14.5); White Blood Count 6.2 K/mm3 (4.5-10.0)
[2023-04-25] MEDS: LEVOTHYROXINE SODIUM 50 MCG TABLET PO (05:53)
[2023-04-25 05:57] LABS: Anion Gap 9 mmol/L (8-16); Blood Urea Nitrogen 21 mg/dL (9-20); Calcium 8.5 mg/dL (8.4-10.2); Carbon Dioxide 27 mmol/L (22-30); Chloride 97 mmol/L (98-107); Estimated CRCL calculation 84 ml/min; Estimated Glomerular Filt Rate > 60; Glucose 175 mg/dL (65-110); Potassium 3.7 mmol/L (3.4-5.0); Sodium 133 mmol/L (137-145)
[2023-04-25 08:49] LABS: Glucose Point of Care 166 mg/dl (65-105)
[2023-04-25] MEDS: ASPIRIN 81 MG ENTERIC TABLET PO (12:14)
[2023-04-25] MEDS: CLOPIDOGREL BISULFATE 75 MG TABLET PO (12:14)
[2023-04-25] MEDS: ISOSORBIDE MONONITRATE 60 MG TAB.ER.24H PO (12:14)
[2023-04-25] MEDS: TAMSULOSIN HCL 0.4 MG CAPSULE PO (12:14)
[2023-04-25] MEDS: PARoxetine 20 MG TABLET PO (12:14)
[2023-04-25] MEDS: DEXAMETHASONE 2 MG TABLET 6 MG PO (12:14)
[2023-04-25] MEDS: carvediloL 12.5 MG TABLET PO (12:15)
[2023-04-25] MEDS: MONTELUKAST SODIUM 10 MG TABLET PO (12:17)
[2023-04-25] MEDS: APIXABAN 5 MG TABLET PO (12:17)
[2023-04-25] MEDS: guaiFENesin 12 HR 600 MG TABCR PO (12:17)
[2023-04-25] MEDS: FENOFIBRATE NANOCRYSTALLIZED 145 MG TABLET PO (12:17)
[2023-04-25] MEDS: glipiZIDE XL 5 MG TABCR PO (12:17)
[2023-04-25] MEDS: rOPINIRole HCL 0.25 MG TABLET PO (12:20)
[2023-04-25] MEDS: FERROUS SULFATE 325 MG TABLET DR PO (12:20)
--- NOTE | 2023-04-25 12:34 | PM.DS ---
DS: Admitting Diagnosis Discharge Date 04/25/23 Admitting Diagnosis COVID Acute hypoxic respiratory failure acute kidney injury superimposed on CKD elevated troponin JOVANNA on Cpap BPH DS: Discharge Diagnosis Discharge Diagnosis (1) COVID-19: Code(s): U07.1 - COVID-19 Status: Acute (2) Acute hypoxemic respiratory failure: Code(s): J96.01 - Acute respiratory failure with hypoxia Status: Acute (3) Acute kidney injury superimposed on CKD: Code(s): N17.9 - Acute kidney failure, unspecified; N18.9 - Chronic kidney disease, unspecified Status: Acute (4) Elevated troponin: Code(s): R79.89 - Other specified abnormal findings of blood chemistry Status: Resolved (5) Obstructive sleep apnea on CPAP: Code(s): G47.33 - Obstructive sleep apnea (adult) (pediatric); Z99.89 - Dependence on other enabling machines and devices Status: Chronic (6) BPH (benign prostatic hyperplasia): Qualifiers: Lower urinary tract symptom presence: unspecified whether lower urinary tract symptoms present Qualified Code(s): N40.0 - Benign prostatic hyperplasia without lower urinary tract symptoms Code(s): N40.0 - Benign prostatic hyperplasia without lower urinary tract symptoms Status: Chronic (7) Type 2 diabetes mellitus with hyperglycemia: Code(s): E11.65 - Type 2 diabetes mellitus with hyperglycemia Status: Acute DS: Summary Hospital Course Reason for hospitalization: Acute hypoxic respiratory failure COVID RASHAWN superimposed on CKD Hospital Course: This is a 62 year old male who presented to the hospital on 04/21/23 with complaints of SOB and passing out. Work up in the hospital included head CT which was negative for any acute findings. CXR was negative for any acute cardiopulmonary process.VQ scan was negative for PE. WBC was 10.9, D- dimer 0.68, Na+ 133, BUN 41, Creatinine 2.90, eGFR 22, BG ranging 322-328, Lactic acid 1.5, troponin 0.067>0.046, CRP 3.4, procalcitonin 0.5. UA protein 3+, glucose 3+, ketones trace. Respiratory panel positive for COVID 19. Patient had a full course of remdesivir and dexamethasone. VSS, he is afebrile, he is on room air. Labs are essentially unremarkable except for Na 133, Chloride 97, BG 175-325, Hgb A1C 10.2. Patient is stable for discharge. He will need to follow up with PCP in 1 week. Final diagnosis: Acute hypoxic respiratory failure, COVID, RASHAWN superimposed on CKD. Status at Discharge Cognitive/behavioral status at discharge: Alert and oriented x3 Functional status at discharge: independent ambulation Overall status at discharge: patient is progressing back to baseline Time Spent with Patient Time attestation: Total time spent providing and/or coordinating discharge services: Time spent: Greater than 30 minutes Exam Narrative: General: In no acute distress, well nourished Head: atraumatic, no encephalopathy Eyes: EOMI, PERRLA, sclera clear ENT: moist mucous membranes, nasal passages clear Neck: supple, no JVD, no adenopathy, trachea midline Cardiac: Normal S1 and S2. RRR. No murmur, gallops or friction rubs, peripheral pulses intact. Respiratory: Lungs clear to auscultation, no adventitious lung sounds Gastrointestinal: soft, non-distended, non-tender, normoactive bowel sounds. : voiding without difficulty. Extremities: moves all extremities well, no edema, good ROM, strength 5/5 Skin: clean, dry, intact. No wounds or lesions. Neuro: Alert and oriented x4, cranial nerves intact, no neuro deficits. Psych: normal mood, normal affect, interactive DS: Data Data Completed and Pending Completed studies during hospitalization: Pulmonary perfusion imaging Chest x-ray Head CT Pending studies at discharge: none Labs on day of discharge: Labs from last 24 hours 04/25/23 04/25/23 04/24/23 08:46 05:25 21:41 WBC 6.2 RBC 4.51 L Hgb 13.2 L Hct 40.3 L MCV 89.4 MCH 29.3 MCHC 32.8 RDW
[2023-04-25 12:35] LABS: Glucose Point of Care 163 mg/dl (65-105)
== END 2023-04-25 14:30 | disposition home or self-care (01) | DRG 178 ==
LOC: ANHED 20:35 → ANH2MED 21:22
PROVIDERS: Nurse Practitioner; Student in an Organized Health Care Education/Training Program; Admitting Provider Internal Medicine; Emergency Provider Physician Assistant; PCP Family Medicine; Visit Provider Nurse Practitioner Acute Care
DX: U07.1 COVID-19 (principal); I48.92 Unspecified atrial flutter; N17.9 Acute kidney failure, unspecified; I12.9 Hypertensive chronic kidney disease with stage 1 through stage 4 chronic kidney disease, or unspecified chronic kidney disease; E11.65 Type 2 diabetes mellitus with hyperglycemia; E11.22 Type 2 diabetes mellitus with diabetic chronic kidney disease; E78.5 Hyperlipidemia, unspecified; E03.9 Hypothyroidism, unspecified; E66.9 Obesity, unspecified; G47.33 Obstructive sleep apnea (adult) (pediatric); I25.10 Atherosclerotic heart disease of native coronary artery without angina pectoris; J44.9 Chronic obstructive pulmonary disease, unspecified; N18.30 Chronic kidney disease, stage 3 unspecified; N40.0 Benign prostatic hyperplasia without lower urinary tract symptoms; R79.89 Other specified abnormal findings of blood chemistry; Z68.36 Body mass index [BMI] 36.0-36.9, adult; Z79.82 Long term (current) use of aspirin; Z79.84 Long term (current) use of oral hypoglycemic drugs; Z86.73 Personal history of transient ischemic attack (TIA), and cerebral infarction without residual deficits; Z99.89 Dependence on other enabling machines and devices; Z95.1 Presence of aortocoronary bypass graft; Z87.891 Personal history of nicotine dependence; Z79.02 Long term (current) use of antithrombotics/antiplatelets
CPT/HCPCS: 36415; 70450; 71046; 78580; 80048; 80053; 80076; 81001; 82728; 82948; 83605; 83615; 83735; 84100; 84145; 84484; 85025; 85027; 85380; 85610; 85730; 86140; 87040; 87637; 93005; 96374; 97161; 99285; A9270; A9540; J0248; J1100; J1650; J1815; J7030; J8540

== ENCOUNTER 2023-05-04 14:28 | Outpatient (CLI) | payer OTHER, SELFPAY ==
[2023-05-04 14:54] LABS: Basophils Percent Auto 0.4 % (0.2-1.2); Eosinophils Absolute Auto 0.1 K/mm3 (0-0.3); Eosinophils Percent Auto 1.2 % (0-4.4); Hematocrit 46.4 % (42.0-52.0); Hemoglobin 15.3 g/dL (14.0-18.0); Immature Granulocyte Absolute 0.04 K/mm3 (0.00-0.031); Immature Granulocyte Percent A 0.4 % (0-0.5); Lymphocytes Absolute Auto 2.75 K/mm3 (0.9-3.2); Lymphocytes Percent Auto 27.4 % (18.3-44.2); Mean Corpuscular Hemoglobin 29.8 pg (26-34); Mean Corpuscular Volume 90.3 fl (80-100); Mean Platelet Volume 9.5 fl (7.4-10.4); Monocytes Absolute Auto 0.8 K/mm3 (0.1-0.6); Monocytes Percent Auto 7.6 % (2.6-8.5); Neutrophils Absolute Auto 6.3 K/mm3 (1.3-6.7); Platelet Count Result 332 k/mm3 (150-375); Red Blood Count 5.14 M/mm3 (4.6-6.20); Red Cell Distribution Width 12.9 % (11.5-14.5)
[2023-05-04 15:19] LABS: Alanine Aminotransferase 27 U/L (6-50); Albumin Level 4.2 g/dL (3.5-5.1); Alkaline Phosphatase 54 U/L (38-126); Anion Gap 10 mmol/L (8-16); Aspartate Amino Transferase 41 U/L (17-59); Bilirubin,Total 0.8 mg/dL (0.2-1.3); Blood Urea Nitrogen 20 mg/dL (9-20); Calcium 9.6 mg/dL (8.4-10.2); Carbon Dioxide 25 mmol/L (22-30); Chloride 100 mmol/L (98-107); Estimated Glomerular Filt Rate 32; Glucose 188 mg/dL (65-110); Potassium 4.5 mmol/L (3.4-5.0); Sodium 135 mmol/L (137-145)
[2023-05-04 15:39] LABS: NT Pro B Type Natriuretic Pept 953 pg/mL (19.9-100); Troponin I 0.037 ng/mL (0.000-0.034)
[2023-05-04 16:46] LABS: Hepatitis B Surface Antigen Negative (Negative)
[2023-05-04 16:58] LABS: HIV 1/2 Ab P24 Ag Result Negative (Negative)
== END 2023-05-04 14:29 | disposition home or self-care (01) ==
PROVIDERS: PCP Family Medicine; Visit Provider Physician Assistant
DX: D50.9 Iron deficiency anemia, unspecified (principal); I13.0 Hypertensive heart and chronic kidney disease with heart failure and stage 1 through stage 4 chronic kidney disease, or unspecified chronic kidney disease; N18.31 Chronic kidney disease, stage 3a; Z20.9 Contact with and (suspected) exposure to unspecified communicable disease; E03.9 Hypothyroidism, unspecified; F32.9 Major depressive disorder, single episode, unspecified; R94.31 Abnormal electrocardiogram [ECG] [EKG]; E11.29 Type 2 diabetes mellitus with other diabetic kidney complication; I50.9 Heart failure, unspecified
CPT/HCPCS: 36415; 80053; 83880; 84443; 84484; 85025; 86703; 87340; G0432

== ENCOUNTER 2023-05-04 17:15 | Observation (INO) | payer OTHER, SELFPAY ==
[2023-05-04] VITALS (15 sets, daily range): BP systolic 75–163; BP diastolic 45–142; PULSE 64–88; RESP 12–30; TEMP 36.3–36.4; O2SAT 97–100; BMI 34.0
--- NOTE | ~2023-05-04 | XR_ITS ---
EXAMINATION: XR chest 1V portable DATE: 05/04/2023 18:42 INDICATION: Shortness of breath and chest pain TECHNIQUE: frontal view of the chest was obtained. COMPARISON: Chest radiograph dated 01/20/2024 FINDINGS: The lungs remain clear with no focal airspace opacities, pulmonary edema, pleural effusion or pneumot horax. The cardiomediastinal silhouette is normal. Median sternotomy wires and mediastinal surgical c lips are seen, likely from prior coronary artery bypass grafting. IMPRESSION: 1. No acute cardiopulmonary disease. Reviewed, dictated and finalized at location A. LINE OPERATOR
--- NOTE | ~2023-05-04 | NM_ITS ---
EXAMINATION: NM lung vent and perfusion DATE: 05/04/2023 20:46 INDICATION: Pulmonary embolism with atrial fibrillation TECHNIQUE: 5.823 mCi xenon-133 by inhalation and 5.5 mCi Tc-99m MAA by intravenous route. Scintigrap hic images of the chest were obtained. COMPARISON: Chest radiograph dated 05/12/2023 and VQ scan dated 04/21/2023 FINDINGS: There is homogeneous radiotracer activity throughout the lungs on the single breath ventilation seque nce. There is relatively homogeneous perfusion throughout the lungs. No discrete ventilation and pe rfusion mismatch is identified. IMPRESSION: 1. Low probability for pulmonary embolism. Reviewed, dictated and finalized at location A. NCIAL SERVICES AGENT
--- NOTE | ~2023-05-04 | US_ITS ---
EXAMINATION: US renal BI DATE: 05/06/2023 12:32 INDICATION: elevated creatinine TECHNIQUE: Multiple grayscale and Doppler ultrasound images of the kidneys were obtained. COMPARISON: CT abdomen pelvis 09/14/2017. FINDINGS: The right kidney measures 10.3 x 4.6 x 5.3 cm. The left kidney measures 11.2 x 5.4 x 6.0 cm. The kidn eys demonstrate normal parenchymal echogenicity. There is no hydronephrosis. The bladder is normal. IMPRESSION: Unremarkable renal sonogram findings. Reviewed, dictated and finalized at location K. DERING CLERK
--- NOTE | 2023-05-04 17:44 | ECG_ITS ---
Measurements Intervals [place] Rate: 78 P: MA: 0 QRS: -60 QRSD: 101 T: 134 QT: 389 QTc: 444 Interpretive Statements ATRIAL FIBRILLATION LEFT ANTERIOR FASCICULAR BLOCK POSSIBLE INFERIOR INFARCT, AGE INDETERMINATE ST DEVIATION AND T-WAVE ABNORMALITY, CONSIDER ISCHEMIA Electronically Signed On 05-05-2023 12:27:43 INSURANCE MANAGER by Ferdinand Cadena M.D.
--- NOTE | 2023-05-04 18:11 | ED.GENADULT ---
HPI - General Adult General Chief complaint: Recheck/Abnormal Lab/Rx Stated complaint: abnormal labs - low kidney function Time Seen by Provider: 05/04/23 18:03 History of Present Illness HPI narrative: Patient is a 62-year-old male with history of 4 vessel CABG, hypertension here with shortness of breath and abnormal labs. Patient was recently hospitalized for COVID-19 and hypoxia. He has been home for about a week. He states that he has been feeling okay other than a lack of appetite and generalized fatigue. He saw his primary care doctor today who ordered some outpatient labs. They additionally ordered an EKG and had some concerns for new onset atrial fibrillation. He received a phone call from his primary care doctor advising him to come into the emergency department for additional evaluation given his renal function significantly worsened. He had some intermittent shortness of breath and throat tightness on his way into the emergency department, then when he was checking in with the triage nurse he noticed it significantly worsened. He states that it felt like someone was strangling him. He had some associated chest tightness feeling like he could not catch air. He was found to be hypotensive in triage and brought back to the room. He states that since lying in the stretcher in his room he is feeling quite a bit better and able to breath with less difficulty. He does not use home oxygen. Related Data Home Medications Medication Instructions Recorded Confirmed aspirin 81 mg tablet,delayed 81 mg PO DAILY 04/15/23 05/04/23 release carvedilol 12.5 mg tablet 12.5 mg PO BID 04/15/23 05/04/23 clopidogrel 75 mg tablet 75 mg PO DAILY 04/15/23 05/04/23 emtricitabine 200 mg-tenofovir 1 tablet PO DAILY 04/15/23 05/04/23 disoproxil fumarate 300 mg tablet fenofibrate nanocrystallized 145 145 mg PO DAILY 04/15/23 05/04/23 mg tablet ferrous sulfate 325 mg (65 mg 325 mg PO DAILY 04/15/23 05/04/23 iron) tablet glipizide 5 mg tablet, extended 5 mg PO DAILY 04/15/23 05/04/23 release 24 hr isosorbide mononitrate 60 mg 60 mg PO DAILY 04/15/23 05/04/23 tablet,extended release 24 hr levothyroxine 50 mcg tablet 50 mcg PO DAILY 04/15/23 05/04/23 lisinopril 40 mg tablet 40 mg PO DAILY 04/15/23 05/04/23 montelukast 10 mg tablet 10 mg PO DAILY 04/15/23 05/04/23 paroxetine HCl 10 mg tablet 10 mg PO TID 04/15/23 05/04/23 ropinirole 0.25 mg tablet 0.25 mg PO DAILY 04/15/23 05/04/23 rosuvastatin 40 mg tablet 40 mg PO DAILY 04/15/23 05/04/23 spironolactone 50 mg tablet 50 mg PO DAILY 04/15/23 05/04/23 Allergies Allergy/AdvReac Type Severity Reaction Status Date / Time hydralazine Allergy Unknown CAUSED Verified 05/04/23 13:24 LUPUS hydroxychloroquine AdvReac Itching Verified 05/04/23 13:24 [From Plaquenil] Review of Systems Review of Systems: All systems reviewed & are unremarkable except as noted in HPI and below PMFSH Past Medical History Medical History Allergic rhinitis NIRANJAN positive Asthma with COPD BPH (benign prostatic hyperplasia) Chronic kidney disease Stage III with baseline creatinine between 1.2-1.5 Class 2 obesity with body mass index (BMI) of 37.0 to 37.9 in adult COPD (chronic obstructive pulmonary disease) With PFTs 05/25/2019 demonstrating decreased diffusion capacity but no evidence of restrictive or obstructive ventilatory defect Coronary artery disease CVA (cerebral vascular accident) Right ocular stroke 2004 Diffuse idiopathic skeletal hyperostosis DISH (diffuse idiopathic skeletal hyperostosis) 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
[2023-05-04] MEDS: IPRATROPIUM 0.5 MG/ALBUTEROL SULFATE 2.5 MG AMPUL.NEB 3 ML INHALATION (18:13)
[2023-05-04 18:26] LABS: Fractional Inspired Oxygen 32 %; HCO3 VBG 23.3 mEq/l (24.0-30.0); PCO2 VBG 43.1 mmHg (42.0-48.0)
[2023-05-04 18:27] LABS: Device NASAL CANNULA; PO2 VBG < 27.0 mmHg (35.0-45.0)
[2023-05-04 18:32] LABS: Basophils Absolute Auto 0.1 K/mm3 (0.0-0.1); Basophils Percent Auto 0.4 % (0.2-1.2); Eosinophils Absolute Auto 0.1 K/mm3 (0-0.3); Eosinophils Percent Auto 0.7 % (0-4.4); Hemoglobin 15.1 g/dL (14.0-18.0); Immature Granulocyte Absolute 0.04 K/mm3 (0.00-0.031); Immature Granulocyte Percent A 0.3 % (0-0.5); Lymphocytes Absolute Auto 2.56 K/mm3 (0.9-3.2); Lymphocytes Percent Auto 21.3 % (18.3-44.2); Mean Corpuscular HGB Conc 32.1 g/dl (32-36); Mean Corpuscular Hemoglobin 29.5 pg (26-34); Mean Corpuscular Volume 91.8 fl (80-100); Mean Platelet Volume 9.7 fl (7.4-10.4); Monocytes Absolute Auto 0.6 K/mm3 (0.1-0.6); Monocytes Percent Auto 5.2 % (2.6-8.5); Neutrophils Absolute Auto 8.7 K/mm3 (1.3-6.7); Neutrophils Percent Auto 72.1 % (45.5-73.1); Platelet Count Result 312 k/mm3 (150-375); Red Blood Count 5.12 M/mm3 (4.6-6.20)
[2023-05-04 18:36] LABS: Alveolar/Arterial O2 Gradient 111.3 mmHg; Base Excess ABG -0.6 mEq/l (+/-2.0); Fractional Inspired Oxygen 36 %; HCO3 ABG 17.5 mEq/l (22.0-26.0); Oxygen Content ABG 21.1 %vol (16.0-22.0); Oxyhemoglobin 97.5 % THb (90.0-100.0); PO2 ABG 125.1 mmHg (80.0-100.0); PO2 FiO2 Ratio Arterial Blood 3.47 %; Total Hemoglobin 15.3 g/dL (12.0-18.0)
[2023-05-04 18:38] LABS: Device NASAL CANNULA; Modified Allen's Test Pass; PCO2 ABG 17.5 mmHg (35.0-45.0); Site Drawn RIGHT RADIAL; pH ABG 7.619 (7.350-7.450)
[2023-05-04] MEDS: LACTATED RINGERS 1,000 ML 999 ML IV CONT ×2 (18:38→18:45)
[2023-05-04] MEDS: methylPREDNISolone SOD SUCC 125 MG VIAL IV PUSH (18:39)
[2023-05-04] MEDS: ASPIRIN 81 MG CHEWABLE TABLET 324 MG PO (18:39)
[2023-05-04] MEDS: diphenhydrAMINE HCl INJ 50 MG/ML VIAL 25 MG IV PUSH (18:39)
[2023-05-04 18:42] LABS: Prothrombin Time 13.4 Seconds (11.1-14.7)
[2023-05-04 18:43] LABS: Alanine Aminotransferase 28 U/L (6-50); Albumin Level 4.3 g/dL (3.5-5.1); Alkaline Phosphatase 57 U/L (38-126); Anion Gap 13 mmol/L (8-16); Aspartate Amino Transferase 41 U/L (17-59); Bilirubin,Total 0.9 mg/dL (0.2-1.3); Blood Urea Nitrogen 22 mg/dL (9-20); Calcium 9.7 mg/dL (8.4-10.2); Carbon Dioxide 23 mmol/L (22-30); Chloride 101 mmol/L (98-107); Estimated CRCL calculation 31 ml/min; Estimated Glomerular Filt Rate 24; Glucose 164 mg/dL (65-110); Lipase 340 U/L (23-300); Partial Thromboplastin Time 27.4 SECONDS (22.3-36.8); Potassium 4.3 mmol/L (3.4-5.0); Sodium 137 mmol/L (137-145)
[2023-05-04 19:09] LABS: Influenza A QL RT-PCR Negative (Negative); Influenza B QL RT-PCR Negative (Negative); RSV RNA, RT-PCR Negative (Negative); SARS-CoV-2 RNA PCR Negative (Negative)
[2023-05-04 19:14] LABS: CRP < 0.5 mg/dL (<1.0)
--- NOTE | 2023-05-04 19:32 | PC.NURSE ---
this rn assumed care of patient. this rn took patient report from amy Dickson.
[2023-05-04 20:02] LABS: Lactic Acid Reflex 2.1 mmol/L (0.7-2.0); Partial Thromboplastin Time 26.3 SECONDS (22.3-36.8); Prothrombin Time 13.8 Seconds (11.1-14.7)
[2023-05-04] MEDS: LACTATED RINGERS 1,000 ML 100 ML IV CONT (21:57)
--- NOTE | 2023-05-04 22:01 | ECG_ITS ---
Measurements Intervals [place] Rate: 70 P: IA: 0 QRS: -56 QRSD: 109 T: 143 QT: 427 QTc: 461 Interpretive Statements ATRIAL FIBRILLATION LEFT ANTERIOR FASCICULAR BLOCK ST DEVIATION AND T-WAVE ABNORMALITY, CONSIDER ISCHEMIA Electronically Signed On 05-05-2023 12:31:27 MARKETING PROPOSAL COORDINATOR by Ferdinand Cadena M.D.
[2023-05-04 22:03] LABS: Troponin I 0.033 ng/mL (0.000-0.034)
[2023-05-04 22:05] LABS: Appearance Urine Cloudy (Clear); Bacteria Urine None Seen /hpf; Bilirubin Urine Negative (Negative); Blood Urine Negative (Negative); Color Urine Yellow (Yellow); Glucose Urine UA Negative (Negative); Ketones Urine Trace mg/dL (Negative); Leukocyte Esterase Ur Negative LEU/UL (Negative); Need Manual Microscopic Reviewed; Nitrate Urine Negative (Negative); Non Pathogenic Casts >20; Protein Urine 2+ mg/dL (Negative); RBC Urine 0-2 /hpf (0-2); Specific Grav Ur 1.016 (1.001-1.035); Squamous Epithelial Cell Urine Occasional /hpf (Few); Urobilinogen Urine 0.2 mg/dL (<2.0); WBC Urine 0-5 /hpf
[2023-05-04 22:07] LABS: Add Urine Microscopic? YES
[2023-05-04 22:09] LABS: Procalcitonin 0.1 ng/mL
--- NOTE | 2023-05-04 22:29 | ADMGEN ---
This patient, Virgil Paz Jr., was admitted to IMU Room 209-01. Patient/family oriented to hospital policies and general routines including ID bracelet, bed and alarms, visiting hours, pain management, procedures, bathroom and other care routines, personal items, smoking policy, room service/diet, and visiting hours. Information on how to activate the Rapid Response Team has been discussed. Patient/Family are encouraged to report perceived risks to care and to ask questions if they do not understand what they are told or what they should do.
[2023-05-04 22:50] LABS: Reflex Lactic Acid Yes or No Add Lactic
[2023-05-04 23:38] LABS: Lactic Acid 1.2 mmol/L (0.7-2.0)
[2023-05-04 23:50] LABS: Troponin I 0.027 ng/mL (0.000-0.034)
[2023-05-05] VITALS (18 sets, daily range): BP systolic 119–144; BP diastolic 64–97; PULSE 50–99; RESP 16–24; TEMP 36.1–36.5; O2SAT 96–100
--- NOTE | 2023-05-05 01:20 | PM.IMHP ---
H&P: HPI History of Present Illness Date/Time: 05/05/23 03:10 Chief Complaint: low kidney function on labs Narrative: 62-year-old male with a past medical history of coronary disease obesity, uncontrolled diabetes mellitus, chronic kidney disease stage 3 with baseline creatinine 1.2, COPD, obesity, obstructive sleep apnea who presented to the ER after he had abnormal labs obtained from his primary care provider the patient had outpatient labs that demonstrated acute kidney injury. The patient had just been hospitalized 04/21 through due to COVID with hypoxic respiratory failure. He had also had recent hospitalization and April 15 through the due to hyperglycemia. During his prior hospitalizations he has had multiple episodes of acute on chronic kidney injury. The patient's outpatient labs demonstrated acute kidney injury with creatinine increased from baseline of around 1 up to 2.1 as outpatient. Repeat value in the ER was 2.7. Patient did not know the is a change in urinary frequency until the day of presentation at which time he noticed he had only had 1 void. His urine did appear dark her on the day of presentation. He denies dysuria. Does have history of BPH per his report. He has been seen by Urology in the past but denies ever being evaluated by Nephrology. He denies known history of kidney disease benign no on prior admissions that I have educated the patient about him having acute kidney injury. While in the waiting room he began having tightness in his throat and reported he could not breathe and chest tightness. The patient was maintaining oxygen saturations without difficulty but was placed on oxygen for comfort. ABG when the patient was pulled to the room in the ER demonstrated overt respiratory alkalosis consistent with hyperventilation. He admits since discharge from the hospital he has had decreased appetite and generalized fatigue. He reports that since his multiple recent hospitalizations he has not been as compliant with his home CPAP. EKG at primary care physician's office did demonstrate atrial fibrillation rate controlled. On review of the patient's chart during his most recent hospitalization he did also have new onset a flutter that for whatever reason I did not mention in his prior H&P but again his rate was controlled. The patient was discharged with an order for Eliquis but the patient states that he was not taking this. Overall it seems the patient had some confusion regarding his home medications on discharge he has not been having any lower extremity swelling or orthopnea. The sites his episode of discomfort in the ER he has not been having any chest pain. He denies any nausea or vomiting. During his prior hospitalization is Junamet was held due to acute kidney injury. His glucoses at home had been elevated in the 210s per outpatient office note. During his last hospitalization the patient's Lasix and spironolactone were also held. But according to the discharge summary were resumed on discharge. It looks like his diuretics were resumed on discharge. He was supposed to be continued on his Flomax but had not been taking it. Again there seems to be significant confusion regarding meds at the time of discharge. He states that he is post to start Jardiance soon. The patient reports that he has only produced proximally 200 mL of urine since arriving to the medical floor. Review of Systems Review of Systems: 12 systems were reviewed with pertinent positives and negatives per HPI. Except as documented in the HPI, all other systems were reviewed and are negative. [facility] Past Medical History Medical History (Updated 05/05/23 @ 01:35 by Maryan Bates, ) Allergic rhinitis NIRANJAN positive Asthma with COPD BPH (benign prostatic hyperplasia) Chronic kidney disease Stage III with baseline creatinine between 1.2-1.5 Class 2 obesity with body mass index (BMI) of 37.0 to 37.9 in adult COPD (chronic obstruc
[2023-05-05 05:27] LABS: Hematocrit 39.9 % (42.0-52.0); Hemoglobin 12.9 g/dL (14.0-18.0); Mean Corpuscular HGB Conc 32.3 g/dl (32-36); Mean Corpuscular Hemoglobin 29.7 pg (26-34); Mean Corpuscular Volume 91.7 fl (80-100); Platelet Count Result 222 k/mm3 (150-375); Red Blood Count 4.35 M/mm3 (4.6-6.20); Red Cell Distribution Width 12.8 % (11.5-14.5); White Blood Count 5.6 K/mm3 (4.5-10.0)
[2023-05-05] MEDS: LEVOTHYROXINE SODIUM 50 MCG TABLET PO (05:51)
[2023-05-05 05:53] LABS: Anion Gap 10 mmol/L (8-16); Blood Urea Nitrogen 23 mg/dL (9-20); Calcium 8.7 mg/dL (8.4-10.2); Carbon Dioxide 22 mmol/L (22-30); Chloride 100 mmol/L (98-107); Estimated CRCL calculation 49 ml/min; Estimated Glomerular Filt Rate 41; Glucose 210 mg/dL (65-110); Potassium 4.2 mmol/L (3.4-5.0); Sodium 132 mmol/L (137-145)
[2023-05-05 07:33] LABS: Glucose Point of Care 222 mg/dl (65-105)
[2023-05-05] MEDS: LACTATED RINGERS 1,000 ML 100 ML IV CONT (07:45)
--- NOTE | 2023-05-05 09:38 | P.PNIM_ITS ---
Progress Note: A&P Assessment and Plan (1) Acute kidney injury superimposed on CKD: Code(s): N17.9 - Acute kidney failure, unspecified; N18.9 - Chronic kidney disease, unspecified Status: Acute Assessment and Plan: * Initial BUN and creatinine 22/2.7 * Today's BUN 23, creatinine 1.7 * Baseline creatinine 1.0 * Lisinopril, Lasix,and spironolactone on hold * Continue to trend labs * Avoid nephrotoxic medications * Consult nephrology (2) Acute respiratory alkalosis: Code(s): E87.3 - Alkalosis Status: Acute Assessment and Plan: * ABG shown pH of 7.619, P CO2 17.5 PO2 125, bicarb 17.5 * Likely due to patient presenting with SOB and throat tightness, could be hyper ventilation related. * He was given a DuoNeb and Solu-Medrol 125 mg IV push which resolved his symptoms * He was started on 2 L nasal cannula due to his shortness of breath (3) New onset a-fib: Code(s): I48.91 - Unspecified atrial fibrillation Status: Acute Assessment and Plan: * This is not on new onset as patient wants discharged recently on Eliquis for a flutter * Restarted on Eliquis b.i.d. * Patient denied taking Eliquis at home as he had some confusion about his discharge medications from previous visit (4) Elevated troponin: Code(s): R79.89 - Other specified abnormal findings of blood chemistry Status: Acute Assessment and Plan: * Troponin 0.037> 0.050> 0.033> 0.027 * Likely demand ischemia (5) Hyperlipidemia: Code(s): E78.5 - Hyperlipidemia, unspecified Status: Chronic Assessment and Plan: * Continue rosuvastatin 40 mg p.o. daily (6) Diabetes type 2, controlled: Qualifiers: Diabetes mellitus ferry terminal supervisor insulin use: without ferry terminal supervisor use Diabetes mellitus complication status: without complication Qualified Code(s): E11.9 - Type 2 diabetes mellitus without complications Code(s): E11.9 - Type 2 diabetes mellitus without complications Status: Chronic Assessment and Plan: * Blood glucose ranging 210-265 * Last hemoglobin A1c on 04/15/2023 is 10.2 * Continue glipizide * Start moderate dose sliding scale insulin * Continue Accu-Cheks AC and HS * Diabetic diet * Hypoglycemic protocol * Hold Janumet Time Spent With Patient Time with patient: Greater than 35 minutes Subjective Date/time seen: 05/05/23 09:38 Interval history: This is a 62-year-old male presented to the hospital today with abnormal labs. Patient had outpatient labs demonstrated acute kidney injury and so he presented to the hospital for further evaluation. He was recently seen and discharged from 120-124 due to COVID with hypoxic respiratory failure. He has had multiple admissions with acute on chronic kidney disease. Workup in the hospital included a chest x-ray which was negative for any acute cardiopulmonary disease. He also had a V/Q scan which shown low probability for PE. EKG showing AFib with a rate of 70. Initial lab shown a white blood cell count of 12.0, BUN of 22, creatinine 2.7, EGFR 24, blood glucose 164, lactic acid 2.1> 1.2, troponin 0.050> 0.027, lipase 340. UA shown 2+ protein, trace ketones. ABG showed pH of 7.619, pCO2 17.5, PO2 of 125, bicarb 17.5. Respiratory panel was negative for influenza, RSV, COVID. Blood cultures were obtained and are currently pending. Patient was given a DuoNeb, methylprednisone 125 mg IV push once, 2 L of LR, 15 mg of Xarelto, 25 mg of Benadryl, and 324 mg aspirin while in the ER. On examination today patient is alert and oriented x3, lying in the bed. Vital signs are stable, he is currentl
--- NOTE | 2023-05-05 09:38 | PM.IMPN ---
Progress Note: A&P Assessment and Plan (1) Acute kidney injury superimposed on CKD: Code(s): N17.9 - Acute kidney failure, unspecified; N18.9 - Chronic kidney disease, unspecified Status: Acute Assessment and Plan: Initial BUN and creatinine 22/2.7 Today's BUN 23, creatinine 1.7 Baseline creatinine 1.0 Lisinopril, Lasix,and spironolactone on hold Continue to trend labs Avoid nephrotoxic medications Consult nephrology (2) Acute respiratory alkalosis: Code(s): E87.3 - Alkalosis Status: Acute Assessment and Plan: ABG shown pH of 7.619, P CO2 17.5 PO2 125, bicarb 17.5 Likely due to patient presenting with SOB and throat tightness, could be hyperventilation related. He was given a DuoNeb and Solu-Medrol 125 mg IV push which resolved his symptoms He was started on 2 L nasal cannula due to his shortness of breath (3) New onset a-fib: Code(s): I48.91 - Unspecified atrial fibrillation Status: Acute Assessment and Plan: This is not on new onset as patient wants discharged recently on Eliquis for a flutter Restarted on Eliquis b.i.d. Patient denied taking Eliquis at home as he had some confusion about his discharge medications from previous visit (4) Elevated troponin: Code(s): R79.89 - Other specified abnormal findings of blood chemistry Status: Acute Assessment and Plan: Troponin 0.037> 0.050> 0.033> 0.027 Likely demand ischemia (5) Hyperlipidemia: Code(s): E78.5 - Hyperlipidemia, unspecified Status: Chronic Assessment and Plan: Continue rosuvastatin 40 mg p.o. daily (6) Diabetes type 2, controlled: Qualifiers: Diabetes mellitus mcfp insulin use: without mcfp use Diabetes mellitus complication status: without complication Qualified Code(s): E11.9 - Type 2 diabetes mellitus without complications Code(s): E11.9 - Type 2 diabetes mellitus without complications Status: Chronic Assessment and Plan: Blood glucose ranging 210-265 Last hemoglobin A1c on 04/15/2023 is 10.2 Continue glipizide Start moderate dose sliding scale insulin Continue Accu-Cheks AC and HS Diabetic diet Hypoglycemic protocol Hold Janumet Time Spent With Patient Time with patient: Greater than 35 minutes Subjective Date/time seen: 05/05/23 09:38 Interval history: This is a 62-year-old male presented to the hospital today with abnormal labs. Patient had outpatient labs demonstrated acute kidney injury and so he presented to the hospital for further evaluation. He was recently seen and discharged from 120-124 due to COVID with hypoxic respiratory failure. He has had multiple admissions with acute on chronic kidney disease. Workup in the hospital included a chest x-ray which was negative for any acute cardiopulmonary disease. He also had a V/Q scan which shown low probability for PE. EKG showing AFib with a rate of 70. Initial lab shown a white blood cell count of 12.0, BUN of 22, creatinine 2.7, EGFR 24, blood glucose 164, lactic acid 2.1> 1.2, troponin 0.050> 0.027, lipase 340. UA shown 2+ protein, trace ketones. ABG showed pH of 7.619, pCO2 17.5, PO2 of 125, bicarb 17.5. Respiratory panel was negative for influenza, RSV, COVID. Blood cultures were obtained and are currently pending. Patient was given a DuoNeb, methylprednisone 125 mg IV push once, 2 L of LR, 15 mg of Xarelto, 25 mg of Benadryl, and 324 mg aspirin while in the ER. On examination today patient is alert and oriented x3, lying in the bed. Vital signs are stable, he is currently on 2 L nasal cannula, he is currently afebrile. He denies any fever, chills, nausea, vomiting, diarrhea, abdominal pain, chest pain, or shortness of breath. He endorses a 30 pound unintentional weight loss since January of this past year. Labs today revealed sodium of 132, BUN 23, creatinine 1.7, EGFR 41, blood sugars ranging 210 to 222. Review of Systems Review of
[2023-05-05] MEDS: ROSUVASTATIN 20 MG TABLET 40 MG PO (10:22)
[2023-05-05] MEDS: FENOFIBRATE NANOCRYSTALLIZED 145 MG TABLET PO (10:23)
[2023-05-05] MEDS: glipiZIDE XL 5 MG TABCR PO (10:23)
[2023-05-05] MEDS: ISOSORBIDE MONONITRATE 60 MG TAB.ER.24H PO (10:23)
[2023-05-05] MEDS: carvediloL 12.5 MG TABLET PO ×2 (10:23→18:12)
[2023-05-05] MEDS: MONTELUKAST SODIUM 10 MG TABLET PO (10:23)
[2023-05-05] MEDS: FERROUS SULFATE 325 MG TABLET DR PO (10:23)
[2023-05-05] MEDS: CLOPIDOGREL BISULFATE 75 MG TABLET PO (10:23)
[2023-05-05] MEDS: rOPINIRole HCL 0.25 MG TABLET PO ×3 (10:23→18:12)
[2023-05-05] MEDS: PARoxetine 10 MG TABLET PO ×3 (10:24→18:13)
[2023-05-05] MEDS: ASPIRIN 81 MG ENTERIC TABLET PO (10:24)
[2023-05-05] MEDS: APIXABAN 5 MG TABLET PO ×2 (10:24→21:23)
[2023-05-05 11:34] LABS: Glucose Point of Care 265 mg/dl (65-105)
[2023-05-05] MEDS: INSULIN ASPART (*BKC) 100 UNITS/ML SUB-Q (13:34)
[2023-05-05 18:40] LABS: Glucose Point of Care 169 mg/dl (65-105)
[2023-05-05 20:43] LABS: Glucose Point of Care 117 mg/dl (65-105)
--- NOTE | 2023-05-05 21:29 | PC.NURSE ---
Patient refuses bed alarm. He is a moderate fall risk due to history of falls and wearing oxygen. He states he has been been getting up and has been fine. He states understanding of fall risk and repeats refusal for bed alarm. Nurse Onelia Gomez notified.
[2023-05-06] VITALS (19 sets, daily range): BP systolic 127–152; BP diastolic 73–80; PULSE 51–80; RESP 16–20; TEMP 35.6–36.4; O2SAT 96–100
[2023-05-06 05:15] LABS: Basophils Percent Auto 0.4 % (0.2-1.2); Eosinophils Absolute Auto 0.1 K/mm3 (0-0.3); Eosinophils Percent Auto 1.1 % (0-4.4); Hematocrit 37.2 % (42.0-52.0); Hemoglobin 12.2 g/dL (14.0-18.0); Immature Granulocyte Absolute 0.02 K/mm3 (0.00-0.031); Immature Granulocyte Percent A 0.2 % (0-0.5); Lymphocytes Absolute Auto 3.52 K/mm3 (0.9-3.2); Lymphocytes Percent Auto 42.9 % (18.3-44.2); Mean Corpuscular HGB Conc 32.8 g/dl (32-36); Mean Corpuscular Hemoglobin 29.8 pg (26-34); Mean Corpuscular Volume 90.7 fl (80-100); Mean Platelet Volume 9.9 fl (7.4-10.4); Monocytes Absolute Auto 0.7 K/mm3 (0.1-0.6); Monocytes Percent Auto 8.4 % (2.6-8.5); Neutrophils Absolute Auto 3.9 K/mm3 (1.3-6.7); Platelet Count Result 203 k/mm3 (150-375); Red Cell Distribution Width 12.9 % (11.5-14.5); White Blood Count 8.2 K/mm3 (4.5-10.0)
[2023-05-06 05:32] LABS: Alanine Aminotransferase 19 U/L (6-50); Albumin Level 3.3 g/dL (3.5-5.1); Alkaline Phosphatase 43 U/L (38-126); Anion Gap 3 mmol/L (8-16); Aspartate Amino Transferase 26 U/L (17-59); Bilirubin,Total 0.4 mg/dL (0.2-1.3); Blood Urea Nitrogen 25 mg/dL (9-20); Calcium 8.8 mg/dL (8.4-10.2); Carbon Dioxide 31 mmol/L (22-30); Chloride 103 mmol/L (98-107); Estimated CRCL calculation 59 ml/min; Estimated Glomerular Filt Rate 51; Glucose 106 mg/dL (65-110); Potassium 4.5 mmol/L (3.4-5.0); Sodium 137 mmol/L (137-145)
[2023-05-06] MEDS: LEVOTHYROXINE SODIUM 50 MCG TABLET PO (07:03)
--- NOTE | 2023-05-06 07:44 | PC.NURSE ---
The HR was noted dropping down to 35. The pt was awake et alert upon entering the pts room et denying distress. VS obtained et Digna GRINDING WHEEL FACER was given report on events et will review medications. No further interventions at this time.
[2023-05-06 07:51] LABS: Glucose Point of Care 112 mg/dl (65-105)
[2023-05-06] MEDS: APIXABAN 5 MG TABLET PO ×2 (08:31→21:37)
[2023-05-06] MEDS: ASPIRIN 81 MG ENTERIC TABLET PO (08:31)
[2023-05-06] MEDS: FENOFIBRATE NANOCRYSTALLIZED 145 MG TABLET PO (08:31)
[2023-05-06] MEDS: PARoxetine 10 MG TABLET PO ×3 (08:31→16:53)
[2023-05-06] MEDS: glipiZIDE XL 5 MG TABCR PO (08:31)
[2023-05-06] MEDS: ISOSORBIDE MONONITRATE 60 MG TAB.ER.24H PO (08:31)
[2023-05-06] MEDS: ROSUVASTATIN 20 MG TABLET 40 MG PO (08:31)
[2023-05-06] MEDS: CLOPIDOGREL BISULFATE 75 MG TABLET PO (08:31)
[2023-05-06] MEDS: rOPINIRole HCL 0.25 MG TABLET PO ×3 (08:31→16:53)
[2023-05-06] MEDS: FERROUS SULFATE 325 MG TABLET DR PO (08:31)
[2023-05-06] MEDS: MONTELUKAST SODIUM 10 MG TABLET PO (08:31)
--- NOTE | 2023-05-06 09:23 | PM.CNNEP ---
Assessment and Plan Assessment and plan (1) RASHAWN (acute kidney injury): Code(s): N17.9 - Acute kidney failure, unspecified Status: Acute Assessment and Plan: the patient has had a couple of episodes of acute kidney injury. Lately his baseline creatinine seems to be running between 1.1 and 1.3 with an estimated GFR above 60 although is had multiple times where his function has been a little worse even as an outpatient. It is unclear what his true baseline is. He does have proteinuria so does most likely have some diabetic kidney disease. In April and also this admission he came in with an elevated creatinine. Both times he seems to have improved with fluids. The 1st time he had the COVID and felt terrible so that is most likely the explanation for his dehydration. However this time he felt fine. The only clue to something going on this time is that he was not eating much at all since the COVID and continued to have pudding like stools so possibly was dehydrated because of that. His blood pressure was low in the emergency room with a systolic ranging from 75-92. This has improved with fluids. the patient does have reviewed recent onset atrial fibrillation and there is a little bit of a loss of ejection fraction from the loss of the atrial kick so I suppose this might be playing a small role in his pre renal azotemia. He has had a history of lupus in the past from hydralazine however I doubt this is inflammatory since he gets better without any intervention. The patient has proteinuria so we will evaluate for that by getting serology, immunofixation, and a renal ultrasound. I will also evaluate for this acute episode with urine electrolytes, CPK, and renal ultrasound (2) A-fib: Code(s): I48.91 - Unspecified atrial fibrillation Status: Acute Assessment and Plan: the patient has atrial fibrillation. This is relatively recent. His rate is controlled. He is on Eliquis. (3) Hypertension: Code(s): I10 - Essential (primary) hypertension Status: Acute Assessment and Plan: blood pressure was low on admission. He is normally on carvedilol and lisinopril along with spironolactone and these are all on hold. (4) Diabetes type 2, controlled: Qualifiers: Diabetes mellitus half-way insulin use: without half-way use Diabetes mellitus complication status: without complication Qualified Code(s): E11.9 - Type 2 diabetes mellitus without complications Code(s): E11.9 - Type 2 diabetes mellitus without complications Status: Chronic Assessment and Plan: On Accu-Cheks and sliding-scale insulin. Hospitalists to manage this. (5) Hyperlipidemia: Code(s): E78.5 - Hyperlipidemia, unspecified Status: Chronic Assessment and Plan: He is on rosuvastatin (6) Presence of aortocoronary bypass graft: Code(s): Z95.1 - Presence of aortocoronary bypass graft Status: Acute Assessment and Plan: he is having no chest pain (7) Obstructive sleep apnea (adult) (pediatric): Code(s): G47.33 - Obstructive sleep apnea (adult) (pediatric) Status: Acute (8) H/O: CVA (cerebrovascular accident): Code(s): Z86.73 - Personal history of transient ischemic attack (TIA), and cerebral infarction without residual deficits Status: Acute Assessment and Plan: no symptoms of the History of Present Illness Reason for Consult Consult date: 05/06/23 Chief Complaint Chief complaint: Acute Hypoxic Respiratory Failure,RASHAWN History of Present Illness Narrative: Lavinia Nicholas is a very pleasant 62-year-old gentleman who has multiple medical problems including coronary artery disease, diastolic dysfunction with a good ejection fraction, recent onset atrial fibrillation on Eliquis, hypertension, stroke, high body mass index, COPD, sleep apnea, hydralazine induced lupus in 2012, hyperlipidemia, hypothyroidism, degenerati
[2023-05-06 11:08] LABS: Creatine Kinase 97 U/L (55-170)
[2023-05-06 11:09] LABS: Erythrocyte Sedimentation Rate 17 mm/hr (0-20)
[2023-05-06 11:38] LABS: Glucose Point of Care 192 mg/dl (65-105)
[2023-05-06 11:45] LABS: Complement C3 124 mg/dL (88-165)
--- NOTE | 2023-05-06 15:55 | P.DS_ITS ---
DS: Discharge Diagnosis Discharge Diagnosis (1) Acute kidney injury superimposed on CKD: Code(s): N17.9 - Acute kidney failure, unspecified; N18.9 - Chronic kidney disease, unspecified Status: Acute Assessment and Plan: * Initial BUN and creatinine 22/2.7 * Today's BUN 23, creatinine 1.7 * Baseline creatinine 1.0 * Lisinopril, Lasix,and spironolactone on hold * Continue to trend labs * Avoid nephrotoxic medications * Consult nephrology (2) Acute respiratory alkalosis: Code(s): E87.3 - Alkalosis Status: Acute Assessment and Plan: * ABG shown pH of 7.619, P CO2 17.5 PO2 125, bicarb 17.5 * Likely due to patient presenting with SOB and throat tightness, could be hyperventilation related. * He was given a DuoNeb and Solu-Medrol 125 mg IV push which resolved his symptoms * He was started on 2 L nasal cannula due to his shortness of breath (3) New onset a-fib: Code(s): I48.91 - Unspecified atrial fibrillation Status: Acute Assessment and Plan: * This is not on new onset as patient wants discharged recently on Eliquis for a flutter * Restarted on Eliquis b.i.d. * Patient denied taking Eliquis at home as he had some confusion about his discharge medications from previous visit (4) Elevated troponin: Code(s): R79.89 - Other specified abnormal findings of blood chemistry Status: Acute Assessment and Plan: * Troponin 0.037> 0.050> 0.033> 0.027 * Likely demand ischemia (5) Hyperlipidemia: Code(s): E78.5 - Hyperlipidemia, unspecified Status: Chronic Assessment and Plan: * Continue rosuvastatin 40 mg p.o. daily (6) Diabetes type 2, controlled: Qualifiers: Diabetes mellitus oil heaterman insulin use: without oil heaterman use Diabetes mellitus complication status: without complication Qualified Code(s): E11.9 - Type 2 diabetes mellitus without complications Code(s): E11.9 - Type 2 diabetes mellitus without complications Status: Chronic Assessment and Plan: * Blood glucose ranging 210-265 * Last hemoglobin A1c on 04/15/2023 is 10.2 * Continue glipizide * Start moderate dose sliding scale insulin * Continue Accu-Cheks AC and HS * Diabetic diet * Hypoglycemic protocol * Hold Berta DS: Summary Time Spent with Patient Time attestation: Total time spent providing and/or coordinating discharge services: Exam Narrative: General: In no acute distress, well nourished Head: atraumatic, no encephalopathy Eyes: EOMI, PERRLA, slcera clear ENT: moist mucous membranes, nasal passages clear Neck: supple, no JVD, no adenopathy, trachea midline Cardiac: Normal S1 and S2. No murmur, gallops or friction rubs, peripheral pulses intact. Respiratory: Lungs clear to auscultation, no adventitious lung sounds Gastrointestinal: soft, non-distended, non-tender, normoactive bowel sounds. : voiding without difficulty. Extremities: moves all extremities well, no edema, good ROM, strength 5/5 Skin: clean, dry, intact. No wounds or lesions. Neuro: Alert and oriented x4, cranial nerves intact, no neuro deficits. Psych: normal mood, normal affect, interactive DS: Data Data Completed and Pending Labs on day of discharge: Labs from last 24 hours 05/06/23 05/06/23 05/06/23 13:59 11:34 10:23 WBC RBC Hgb Hct MCV MCH MCHC RDW Plt Count MPV
--- NOTE | 2023-05-06 15:55 | PM.DS ---
DS: Discharge Diagnosis Discharge Diagnosis (1) Acute kidney injury superimposed on CKD: Code(s): N17.9 - Acute kidney failure, unspecified; N18.9 - Chronic kidney disease, unspecified Status: Acute Assessment and Plan: Initial BUN and creatinine 22/2.7 Today's BUN 23, creatinine 1.7 Baseline creatinine 1.0 Lisinopril, Lasix,and spironolactone on hold Continue to trend labs Avoid nephrotoxic medications Consult nephrology (2) Acute respiratory alkalosis: Code(s): E87.3 - Alkalosis Status: Acute Assessment and Plan: ABG shown pH of 7.619, P CO2 17.5 PO2 125, bicarb 17.5 Likely due to patient presenting with SOB and throat tightness, could be hyperventilation related. He was given a DuoNeb and Solu-Medrol 125 mg IV push which resolved his symptoms He was started on 2 L nasal cannula due to his shortness of breath (3) New onset a-fib: Code(s): I48.91 - Unspecified atrial fibrillation Status: Acute Assessment and Plan: This is not on new onset as patient wants discharged recently on Eliquis for a flutter Restarted on Eliquis b.i.d. Patient denied taking Eliquis at home as he had some confusion about his discharge medications from previous visit (4) Elevated troponin: Code(s): R79.89 - Other specified abnormal findings of blood chemistry Status: Acute Assessment and Plan: Troponin 0.037> 0.050> 0.033> 0.027 Likely demand ischemia (5) Hyperlipidemia: Code(s): E78.5 - Hyperlipidemia, unspecified Status: Chronic Assessment and Plan: Continue rosuvastatin 40 mg p.o. daily (6) Diabetes type 2, controlled: Qualifiers: Diabetes mellitus recruiting and selection consultant insulin use: without senior care use Diabetes mellitus complication status: without complication Qualified Code(s): E11.9 - Type 2 diabetes mellitus without complications Code(s): E11.9 - Type 2 diabetes mellitus without complications Status: Chronic Assessment and Plan: Blood glucose ranging 210-265 Last hemoglobin A1c on 04/15/2023 is 10.2 Continue glipizide Start moderate dose sliding scale insulin Continue Accu-Cheks AC and HS Diabetic diet Hypoglycemic protocol Hold Sherriet DS: Summary Time Spent with Patient Time attestation: Total time spent providing and/or coordinating discharge services: Exam Narrative: General: In no acute distress, well nourished Head: atraumatic, no encephalopathy Eyes: EOMI, PERRLA, slcera clear ENT: moist mucous membranes, nasal passages clear Neck: supple, no JVD, no adenopathy, trachea midline Cardiac: Normal S1 and S2. No murmur, gallops or friction rubs, peripheral pulses intact. Respiratory: Lungs clear to auscultation, no adventitious lung sounds Gastrointestinal: soft, non-distended, non-tender, normoactive bowel sounds. : voiding without difficulty. Extremities: moves all extremities well, no edema, good ROM, strength 5/5 Skin: clean, dry, intact. No wounds or lesions. Neuro: Alert and oriented x4, cranial nerves intact, no neuro deficits. Psych: normal mood, normal affect, interactive DS: Data Data Completed and Pending Labs on day of discharge: Labs from last 24 hours 05/06/23 05/06/23 05/06/23 13:59 11:34 10:23 WBC RBC Hgb Hct MCV MCH MCHC RDW Plt Count MPV Immature Gran % (Auto) Neut % (Auto) Lymph % (Auto) [place] % (Auto) Eos % (Auto) Baso % (Auto) Lymph # (Auto) [place] # (Auto) Eos # (Auto) Baso # (Auto) Abs Immat Gran (auto) Absolute Neuts (auto) Absolute Nucleated RBC Nucleated RBC % ESR 17 Sodium Potassium Chloride Carbon Dioxide Anion Gap BUN Creatinine Estim Creat Clear Calc Estimated GFR Glucose POC Capillary Glucose 192 H Calcium Total Bilirubin AST ALT Alkaline Phosphatase Total Creatine Kinase 97 Total Protein A
--- NOTE | 2023-05-06 15:56 | P.PNIM_ITS ---
Progress Note: A&P Assessment and Plan (1) Acute kidney injury superimposed on CKD: Code(s): N17.9 - Acute kidney failure, unspecified; N18.9 - Chronic kidney disease, unspecified Status: Acute Assessment and Plan: * Initial BUN and creatinine 22/2.7 * Today's BUN 25, creatinine 1.4 * Baseline creatinine 1.0 * resumed Lisinopril * Lasix,and spironolactone on hold * Continue to trend labs * Avoid nephrotoxic medications * Nephrology consulted - ordered labs and renal US (2) Acute respiratory alkalosis: Code(s): E87.3 - Alkalosis Status: Acute Assessment and Plan: * ABG shown pH of 7.619, P CO2 17.5 PO2 125, bicarb 17.5 * Likely due to patient presenting with SOB and throat tightness, could be hyperventilation related. * He was given a DuoNeb and Solu-Medrol 125 mg IV push which resolved his symptoms * now on RA (3) New onset a-fib: Code(s): I48.91 - Unspecified atrial fibrillation Status: Acute Assessment and Plan: * This is not on new onset as patient wants discharged recently on Eliquis for a flutter * Restarted on Eliquis b.i.d. * F/U with [facility] * bradycardia this am - held am dose of Coreg (4) Elevated troponin: Code(s): R79.89 - Other specified abnormal findings of blood chemistry Status: Acute Assessment and Plan: * Troponin 0.037> 0.050> 0.033> 0.027 * Likely demand ischemia (5) Hyperlipidemia: Code(s): E78.5 - Hyperlipidemia, unspecified Status: Chronic Assessment and Plan: * continue statin (6) Diabetes type 2, controlled: Qualifiers: Diabetes mellitus complication status: without complication Diabetes mellitus medical terminologist insulin use: without senior care use Qualified Code(s): E11.9 - Type 2 diabetes mellitus without complications Code(s): E11.9 - Type 2 diabetes mellitus without complications Status: Chronic Assessment and Plan: * Blood glucose ranging 210-265 * Last hemoglobin A1c on 04/15/2023 is 10.2 * Continue glipizide, Hold Janumet * moderate dose sliding scale insulin * Accu-Cheks AC and HS * Hypoglycemic protocol Subjective Date/time seen: 05/06/23 15:56 Interval history: Patient is alert and oriented x3. He is now on room air, per nursing he has been intermittently dropping into the 30-40's HR while he is sleeping but patient is asymptomatic. Will hold AM dose of Coreg. He denies chest pain, or shortness of breath. Nephrology consulted and ordered renal US and additional labs. Will await results and further recs. Will reach out to cardiology, [facility] this week regarding new afib as he did not make f/u after last discharge as instructed. Review of Systems Review of Systems: All systems reviewed & are unremarkable except as noted in HPI and below Exam Narrative: General: In no acute distress, well nourished Head: atraumatic, no encephalopathy Eyes: EOMI, PERRLA ENT: moist mucous membranes Neck: supple Cardiac: bradycardic, Normal S1 and S2. No murmur, gallops or friction rubs, peripheral pulses intact. Respiratory: Lungs clear to auscultation, no adventitious lung sounds Gastrointestinal: soft, non-distended, non-tender, normoactive bowel sounds. Extremities: moves all extremities well, no edema Skin: clean, dry, intact. No wounds or lesions. Neuro: Alert and oriented x4, cranial nerves intact, no neuro deficits. Psych: normal mood, normal affect Objective Data Vital Signs Vital Signs:
--- NOTE | 2023-05-06 15:56 | PM.IMPN ---
Progress Note: A&P Assessment and Plan (1) Acute kidney injury superimposed on CKD: Code(s): N17.9 - Acute kidney failure, unspecified; N18.9 - Chronic kidney disease, unspecified Status: Acute Assessment and Plan: Initial BUN and creatinine 22/2.7 Today's BUN 25, creatinine 1.4 Baseline creatinine 1.0 resumed Lisinopril Lasix,and spironolactone on hold Continue to trend labs Avoid nephrotoxic medications Nephrology consulted - ordered labs and renal US (2) Acute respiratory alkalosis: Code(s): E87.3 - Alkalosis Status: Acute Assessment and Plan: ABG shown pH of 7.619, P CO2 17.5 PO2 125, bicarb 17.5 Likely due to patient presenting with SOB and throat tightness, could be hyperventilation related. He was given a DuoNeb and Solu-Medrol 125 mg IV push which resolved his symptoms now on RA (3) New onset a-fib: Code(s): I48.91 - Unspecified atrial fibrillation Status: Acute Assessment and Plan: This is not on new onset as patient wants discharged recently on Eliquis for a flutter Restarted on Eliquis b.i.d. F/U with [facility] bradycardia this am - held am dose of Coreg (4) Elevated troponin: Code(s): R79.89 - Other specified abnormal findings of blood chemistry Status: Acute Assessment and Plan: Troponin 0.037> 0.050> 0.033> 0.027 Likely demand ischemia (5) Hyperlipidemia: Code(s): E78.5 - Hyperlipidemia, unspecified Status: Chronic Assessment and Plan: continue statin (6) Diabetes type 2, controlled: Qualifiers: Diabetes mellitus complication status: without complication Diabetes mellitus terminal operations supervisor insulin use: without [facility] use Qualified Code(s): E11.9 - Type 2 diabetes mellitus without complications Code(s): E11.9 - Type 2 diabetes mellitus without complications Status: Chronic Assessment and Plan: Blood glucose ranging 210-265 Last hemoglobin A1c on 04/15/2023 is 10.2 Continue glipizide, Hold Janumet moderate dose sliding scale insulin Accu-Cheks AC and HS Hypoglycemic protocol Subjective Date/time seen: 05/06/23 15:56 Interval history: Patient is alert and oriented x3. He is now on room air, per nursing he has been intermittently dropping into the 30-40's HR while he is sleeping but patient is asymptomatic. Will hold AM dose of Coreg. He denies chest pain, or shortness of breath. Nephrology consulted and ordered renal US and additional labs. Will await results and further recs. Will reach out to cardiology, [facility] this week regarding new afib as he did not make f/u after last discharge as instructed. Review of Systems Review of Systems: All systems reviewed & are unremarkable except as noted in HPI and below Exam Narrative: General: In no acute distress, well nourished Head: atraumatic, no encephalopathy Eyes: EOMI, PERRLA ENT: moist mucous membranes Neck: supple Cardiac: bradycardic, Normal S1 and S2. No murmur, gallops or friction rubs, peripheral pulses intact. Respiratory: Lungs clear to auscultation, no adventitious lung sounds Gastrointestinal: soft, non-distended, non-tender, normoactive bowel sounds. Extremities: moves all extremities well, no edema Skin: clean, dry, intact. No wounds or lesions. Neuro: Alert and oriented x4, cranial nerves intact, no neuro deficits. Psych: normal mood, normal affect Objective Data Vital Signs Vital Signs: Vital Signs - 24 hr 05/05/23 16:00 05/05/23 18:12 05/05/23 16:00 Temperature 97.7 F Pulse Rate 61 56 L Respiratory Rate 20 Blood Pressure 119/64 Pulse Oximetry 99 97 Oxygen Delivery Nasal Cannula Oxygen Flow Rate 1 05/05/23 18:00 05/05/23 16:00 05/05/23 19:52 Temperature 97.1 F L Pulse Rate 62 60 61 Respiratory Rate 16 Blood Pressure 125/67 Pulse Oximetry 99 Oxygen Delivery Oxygen Flow Rate 05/05/23 20:00 05/05/23 20:00 05/05/23 22:00 Temperature
[2023-05-06 16:34] LABS: Creatinine Urine 64.9 mg/dL; Sodium Urine Random 102 meq/L; Total Protein Urine Random 15 mg/dL; Ur Ttl Prot Creatinine Ratio 0.23 mg/mg (0-0.20); Urea Random Urine 486 MG/DL
[2023-05-06 16:50] LABS: Glucose Point of Care 98 mg/dl (65-105)
[2023-05-06 19:33] LABS: Glucose Point of Care 186 mg/dl (65-105)
[2023-05-07] VITALS (19 sets, daily range): BP systolic 116–169; BP diastolic 62–95; PULSE 49–81; RESP 20; TEMP 35.6–36.5; O2SAT 96–100; BMI 34.1
[2023-05-07 04:40] LABS: Basophils Percent Auto 0.4 % (0.2-1.2); Eosinophils Absolute Auto 0.1 K/mm3 (0-0.3); Eosinophils Percent Auto 1.8 % (0-4.4); Hematocrit 39.8 % (42.0-52.0); Immature Granulocyte Absolute 0.01 K/mm3 (0.00-0.031); Immature Granulocyte Percent A 0.1 % (0-0.5); Lymphocytes Absolute Auto 3.14 K/mm3 (0.9-3.2); Lymphocytes Percent Auto 42.7 % (18.3-44.2); Mean Corpuscular HGB Conc 32.7 g/dl (32-36); Mean Corpuscular Hemoglobin 29.6 pg (26-34); Mean Corpuscular Volume 90.7 fl (80-100); Mean Platelet Volume 10.1 fl (7.4-10.4); Monocytes Absolute Auto 0.5 K/mm3 (0.1-0.6); Monocytes Percent Auto 7.3 % (2.6-8.5); Neutrophils Absolute Auto 3.5 K/mm3 (1.3-6.7); Neutrophils Percent Auto 47.7 % (45.5-73.1); Platelet Count Result 194 k/mm3 (150-375); Red Blood Count 4.39 M/mm3 (4.6-6.20); Red Cell Distribution Width 12.9 % (11.5-14.5); White Blood Count 7.4 K/mm3 (4.5-10.0)
[2023-05-07 04:56] LABS: Alanine Aminotransferase 20 U/L (6-50); Albumin Level 3.4 g/dL (3.5-5.1); Alkaline Phosphatase 46 U/L (38-126); Anion Gap 3 mmol/L (8-16); Aspartate Amino Transferase 27 U/L (17-59); Bilirubin,Total 0.5 mg/dL (0.2-1.3); Blood Urea Nitrogen 21 mg/dL (9-20); Calcium 9.2 mg/dL (8.4-10.2); Carbon Dioxide 31 mmol/L (22-30); Chloride 102 mmol/L (98-107); Estimated CRCL calculation 59 ml/min; Estimated Glomerular Filt Rate 51; Glucose 118 mg/dL (65-110); Phosphorus 2.9 mg/dL (2.5-4.5); Sodium 136 mmol/L (137-145)
[2023-05-07] MEDS: LEVOTHYROXINE SODIUM 50 MCG TABLET PO (06:23)
[2023-05-07 08:06] LABS: Glucose Point of Care 111 mg/dl (65-105)
[2023-05-07] MEDS: glipiZIDE XL 5 MG TABCR PO (08:27)
[2023-05-07] MEDS: APIXABAN 5 MG TABLET PO ×2 (08:28→21:00)
[2023-05-07] MEDS: CLOPIDOGREL BISULFATE 75 MG TABLET PO (08:29)
[2023-05-07] MEDS: ASPIRIN 81 MG ENTERIC TABLET PO (08:29)
[2023-05-07] MEDS: FERROUS SULFATE 325 MG TABLET DR PO (08:35)
[2023-05-07] MEDS: ISOSORBIDE MONONITRATE 60 MG TAB.ER.24H PO (08:37)
[2023-05-07] MEDS: MONTELUKAST SODIUM 10 MG TABLET PO (08:39)
[2023-05-07] MEDS: ROSUVASTATIN 20 MG TABLET 40 MG PO (08:39)
[2023-05-07] MEDS: PARoxetine 10 MG TABLET PO ×3 (08:40→21:04)
[2023-05-07] MEDS: rOPINIRole HCL 0.25 MG TABLET PO ×3 (08:40→21:04)
[2023-05-07] MEDS: carvediloL 12.5 MG TABLET PO (10:32)
[2023-05-07] MEDS: lisinopriL 20 MG TABLET PO (10:32)
[2023-05-07] MEDS: FENOFIBRATE NANOCRYSTALLIZED 145 MG TABLET PO (10:32)
--- NOTE | 2023-05-07 11:01 | PM.PNNEP ---
Progress Note: A&P Assessment and Plan (1) RASHAWN (acute kidney injury): Code(s): N17.9 - Acute kidney failure, unspecified Status: Acute Assessment and Plan: normal creatinine/renal function prior to admssion however, he has had recurrent bouts of RASHAWN/ARF as noted on recent hospital admissions creatinine seems to average out of 1.1 - 1.3mg/dl but there are times it has been worse even as an outpatient evaluation to date: urine electrolytes nonprenal CPK okay moderate proteinuria renal ultrasound okay serologies pending follow repeat labs and UOP (2) A-fib: Code(s): I48.91 - Unspecified atrial fibrillation Status: Acute Assessment and Plan: not completely new -- has had issues with aflutter in the past rate control strategy on anticoagulation (3) Hypertension: Code(s): I10 - Essential (primary) hypertension Status: Acute Assessment and Plan: low on admission doing better at this time slowly resuming BP medications follow trend of hemodynamics (4) Diabetes type 2, controlled: Qualifiers: Diabetes mellitus complication status: without complication Diabetes mellitus half-way insulin use: without half-way use Qualified Code(s): E11.9 - Type 2 diabetes mellitus without complications Code(s): E11.9 - Type 2 diabetes mellitus without complications Status: Chronic Assessment and Plan: follow Accu-Cheks glycemic control per hospitalists Would not be opposed to discharge later today or tomorrow if renal function remains stable if not continues to improve; he can follow-up with Dr. Boyd in clinic to review pending testing. Will continue to follow. Subjective Date/time seen: 05/07/23 11:01 Interval history: Follow-up for acute kidney injury/acute renal failure. Chart reviewed -- assuming care from Dr. Boyd; creatinine/renal function stable in the last 24 hours; continue to make good urine output; no apparent distress noted at the time of my visit; no issues/events overnight or earlier toady. Exam Narrative: General: WD/WN male in NAD Heart: normal S1 and S2; no rub Lungs: clear to auscultation Abdomen: soft, nontender, nondistended, positive bowel sounds Extremities: no cyanosis or clubbing; no edema Skin: warm and dry Objective Data Vital Signs Vital Signs: Vital Signs Temp Pulse Resp BP Pulse Ox O2 Del Method 05/07/23 10:00 62 05/07/23 08:30 Room Air 05/07/23 08:30 62 05/07/23 10:32 66 05/07/23 08:47 73 142/72 H 05/07/23 07:33 96.0 F L 52 L 20 167/95 H 100 05/07/23 06:00 57 L 05/07/23 04:00 61 05/07/23 04:00 Room Air 05/07/23 04:40 97.0 F L 57 L 20 125/72 98 05/07/23 02:00 67 05/07/23 00:00 62 05/07/23 00:00 Room Air 05/07/23 00:00 97.7 F 67 20 169/84 H 96 05/06/23 22:00 60 05/06/23 20:00 98 Room Air 05/06/23 20:00 60 05/06/23 18:00 66 05/06/23 16:00 76 05/06/23 19:46 97.2 F L 66 20 139/80 98 05/06/23 16:00 Room Air 05/06/23 16:20 96.0 F L 56 L 20 141/73 H 99 05/06/23 14:00 59 L Intake/Output Intake/Output: Intake & Output 05/04/23 05/05/23 05/06/23 05/07/23 23:59 23:59 23:59 23:59 Intake Total 1999 2720 3220 1580 Output Total 202 1950 2725 Balance 1999 5409 [id number] -[id number] Meds/Results Medications: Active Medications Generic Name Dose Route Start Last Admin Trade Name Sera PRN Reason Stop Dose Admin Apixaban 5 mg 05/05/23 09:00 05/07/23 08:28 Apixaban 5 Mg Tablet PO 5 mg Q12HR [facility] Administration Aspirin 81 mg 05/05/23 09:00 05/07/23 08:29 Aspirin 81 Mg Enteric Tablet PO 81 mg DAILY VERÓNICA Administration Carvedilol 6.25 mg 05/07/23 17:00 Carvedilol 6.25 Mg Tablet PO BIDWM [facility] Clopidogrel Bisulfate 75 mg 05/05/23 09:00 05/07/23 08:29 Clopidogrel
--- NOTE | 2023-05-07 11:01 | P.PNNP_ITS ---
Progress Note: A&P Assessment and Plan (1) RASHAWN (acute kidney injury): Code(s): N17.9 - Acute kidney failure, unspecified Status: Acute Assessment and Plan: * normal creatinine/renal function prior to admssion * however, he has had recurrent bouts of RASHAWN/ARF as noted on recent hospital admissions * creatinine seems to average out of 1.1 - 1.3mg/dl but there are times it has been worse even as an outpatient * evaluation to date: * urine electrolytes nonprenal * CPK okay * moderate proteinuria * renal ultrasound okay * serologies pending * follow repeat labs and UOP (2) A-fib: Code(s): I48.91 - Unspecified atrial fibrillation Status: Acute Assessment and Plan: * not completely new -- has had issues with aflutter in the past * rate control strategy * on anticoagulation (3) Hypertension: Code(s): I10 - Essential (primary) hypertension Status: Acute Assessment and Plan: * low on admission * doing better at this time * slowly resuming BP medications * follow trend of hemodynamics (4) Diabetes type 2, controlled: Qualifiers: Diabetes mellitus complication status: without complication Diabetes mellitus remote computer terminal operator insulin use: without alf use Qualified Code(s): E11.9 - Type 2 diabetes mellitus without complications Code(s): E11.9 - Type 2 diabetes mellitus without complications Status: Chronic Assessment and Plan: * follow Accu-Cheks * glycemic control per hospitalists Would not be opposed to discharge later today or tomorrow if renal function remains stable if not continues to improve; he can follow-up with Dr. Boyd in clinic to review pending testing. Will continue to follow. Subjective Date/time seen: 05/07/23 11:01 Interval history: Follow-up for acute kidney injury/acute renal failure. Chart reviewed -- assuming care from Dr. Boyd; creatinine/renal function s table in the last 24 hours; continue to make good urine output; no apparent distress noted at the time of my visit; no issues/events overnight or earlier toady. Exam Narrative: General: WD/WN male in NAD Heart: normal S1 and S2; no rub Lungs: clear to auscultation Abdomen: soft, nontender, nondistended, positive bowel sounds Extremities: no cyanosis or clubbing; no edema Skin: warm and dry Objective Data Vital Signs Vital Signs: Vital Signs Temp Pulse Resp BP Pulse Ox O2 Del Method 05/07/23 10:00 62 05/07/23 08:30 Room Air 05/07/23 08:30 62 05/07/23 10:32 66 05/07/23 08:47 73 142/72 H 05/07/23 07:33 96.0 F L 52 L 20 167/95 H 100 05/07/23 06:00 57 L 05/07/23 04:00 61 05/07/23 04:00 Room Air 05/07/23 04:40 97.0 F L 57 L 20 125/72 98 05/07/23 02:00 67 05/07/23 00:00 62 05/07/23 00:00 Room Air 05/07/23 00:00 97.7 F 67 20 169/84 H 96 05/06/23 22:00 60 05/06/23 20:00 98 Room Air 05/06/23 20:00 60 05/06/23 18:00 66 05/06/23 16:00 76 05/06/23 19:46 97.2 F L 66 20 139/80 98 05/06/23 16:00 Room Air 05/06/23 16:20 96.0 F L 56 L 20 141/73 H 99 05/06/23 14:00 59 L
[2023-05-07 12:07] LABS: Glucose Point of Care 142 mg/dl (65-105)
[2023-05-07 14:26] LABS: Eosinophil Urine None Seen % (None Seen); Urine Eos QC 2nd Tech Confirmed
--- NOTE | 2023-05-07 16:15 | P.PNIM_ITS ---
Progress Note: A&P Assessment and Plan (1) Acute kidney injury superimposed on CKD: Code(s): N17.9 - Acute kidney failure, unspecified; N18.9 - Chronic kidney disease, unspecified Status: Acute Assessment and Plan: * Initial BUN and creatinine 22/2.7 * Today's BUN 21, creatinine 1.40 * Baseline creatinine 1.0 * resumed Lisinopril, decreased to 20 mg * Lasix,and spironolactone on hold * Continue to trend labs * Avoid nephrotoxic medications * Nephrology consulted - ordered labs * renal US normal (2) Acute respiratory alkalosis: Code(s): E87.3 - Alkalosis Status: Resolved Assessment and Plan: * ABG shown pH of 7.619, P CO2 17.5 PO2 125, bicarb 17.5 * Likely due to patient presenting with SOB and throat tightness, could be hyperventilation related. * He was given a DuoNeb and Solu-Medrol 125 mg IV push which resolved his symptoms * now on RA (3) New onset a-fib: Code(s): I48.91 - Unspecified atrial fibrillation Status: Acute Assessment and Plan: * This is not on new onset as patient wants discharged recently on Eliquis for a flutter * Restarted on Eliquis b.i.d. * F/U with [facility] * bradycardic with rest/sleep * spoke with cardiology and lowered BID dose of Coreg to 6.25 (4) Elevated troponin: Code(s): R79.89 - Other specified abnormal findings of blood chemistry Status: Acute Assessment and Plan: * Troponin 0.037> 0.050> 0.033> 0.027 * Likely demand ischemia (5) Hyperlipidemia: Code(s): E78.5 - Hyperlipidemia, unspecified Status: Chronic Assessment and Plan: * continue statin (6) Diabetes type 2, controlled: Qualifiers: Diabetes mellitus mcfp insulin use: without mcfp use Diabetes mellitus complication status: without complication Qualified Code(s): E11.9 - Type 2 diabetes mellitus without complications Code(s): E11.9 - Type 2 diabetes mellitus without complications Status: Chronic Assessment and Plan: * Blood glucose ranging 210-265 * Last hemoglobin A1c on 04/15/2023 is 10.2 * Continue glipizide, Hold Janumet * moderate dose sliding scale insulin * Accu-Cheks AC and HS * Hypoglycemic protocol Subjective Date/time seen: 05/07/23 16:15 Interval history: Patient denies any changes or complaints this morning. His heart rate is stable for most of day, but received call from nurse this afternoon regarding his tele showing 19-20 beats of vtach and irregular rhythm. Cardiology consulted at this time to review, as he has been previously rate controlled. Will await recs. Nephrology following. BC pending with NGTD. Continue to monitor kidney function. Review of Systems Review of Systems: All systems reviewed & are unremarkable except as noted in HPI and below Exam Narrative: General: In no acute distress, well nourished Head: atraumatic, no encephalopathy Eyes: EOMI, PERRLA ENT: moist mucous membranes Neck: supple Cardiac: bradycardic, Normal S1 and S2. No murmur, gallops or friction rubs, p eripheral pulses intact. Respiratory: Lungs clear to auscultation, no adventitious lung sounds Gastrointestinal: soft, non-distended, non-tender, normoactive bowel sounds. Extremities: moves all extremities well, no edema Skin: clean, dry, intact. No wounds or lesions. Neuro: Alert and oriented x4, cranial nerves intact, no neuro deficits. Psych: normal mood, normal affect Objective Data Vital Signs Vital Signs:
--- NOTE | 2023-05-07 16:15 | PM.IMPN ---
Progress Note: A&P Assessment and Plan (1) Acute kidney injury superimposed on CKD: Code(s): N17.9 - Acute kidney failure, unspecified; N18.9 - Chronic kidney disease, unspecified Status: Acute Assessment and Plan: Initial BUN and creatinine 22/2.7 Today's BUN 21, creatinine 1.40 Baseline creatinine 1.0 resumed Lisinopril, decreased to 20 mg Lasix,and spironolactone on hold Continue to trend labs Avoid nephrotoxic medications Nephrology consulted - ordered labs renal US normal (2) Acute respiratory alkalosis: Code(s): E87.3 - Alkalosis Status: Resolved Assessment and Plan: ABG shown pH of 7.619, P CO2 17.5 PO2 125, bicarb 17.5 Likely due to patient presenting with SOB and throat tightness, could be hyperventilation related. He was given a DuoNeb and Solu-Medrol 125 mg IV push which resolved his symptoms now on RA (3) New onset a-fib: Code(s): I48.91 - Unspecified atrial fibrillation Status: Acute Assessment and Plan: This is not on new onset as patient wants discharged recently on Eliquis for a flutter Restarted on Eliquis b.i.d. F/U with [facility] bradycardic with rest/sleep spoke with cardiology and lowered BID dose of Coreg to 6.25 (4) Elevated troponin: Code(s): R79.89 - Other specified abnormal findings of blood chemistry Status: Acute Assessment and Plan: Troponin 0.037> 0.050> 0.033> 0.027 Likely demand ischemia (5) Hyperlipidemia: Code(s): E78.5 - Hyperlipidemia, unspecified Status: Chronic Assessment and Plan: continue statin (6) Diabetes type 2, controlled: Qualifiers: Diabetes mellitus ocean transportation intermediary insulin use: without [facility] use Diabetes mellitus complication status: without complication Qualified Code(s): E11.9 - Type 2 diabetes mellitus without complications Code(s): E11.9 - Type 2 diabetes mellitus without complications Status: Chronic Assessment and Plan: Blood glucose ranging 210-265 Last hemoglobin A1c on 04/15/2023 is 10.2 Continue glipizide, Hold Janumet moderate dose sliding scale insulin Accu-Cheks AC and HS Hypoglycemic protocol Subjective Date/time seen: 05/07/23 16:15 Interval history: Patient denies any changes or complaints this morning. His heart rate is stable for most of day, but received call from nurse this afternoon regarding his tele showing 19-20 beats of vtach and irregular rhythm. Cardiology consulted at this time to review, as he has been previously rate controlled. Will await recs. Nephrology following. BC pending with NGTD. Continue to monitor kidney function. Review of Systems Review of Systems: All systems reviewed & are unremarkable except as noted in HPI and below Exam Narrative: General: In no acute distress, well nourished Head: atraumatic, no encephalopathy Eyes: EOMI, PERRLA ENT: moist mucous membranes Neck: supple Cardiac: bradycardic, Normal S1 and S2. No murmur, gallops or friction rubs, peripheral pulses intact. Respiratory: Lungs clear to auscultation, no adventitious lung sounds Gastrointestinal: soft, non-distended, non-tender, normoactive bowel sounds. Extremities: moves all extremities well, no edema Skin: clean, dry, intact. No wounds or lesions. Neuro: Alert and oriented x4, cranial nerves intact, no neuro deficits. Psych: normal mood, normal affect Objective Data Vital Signs Vital Signs: Vital Signs - 24 hr 05/06/23 16:20 05/06/23 19:46 05/06/23 18:00 Temperature 96.0 F L 97.2 F L Pulse Rate 56 L 66 66 Respiratory Rate 20 20 Blood Pressure 141/73 H 139/80 Pulse Oximetry 99 98 Oxygen Delivery 05/06/23 20:00 05/06/23 20:00 05/06/23 22:00 Temperature Pulse Rate 60 60 Respiratory Rate Blood Pressure Pulse Oximetry 98 Oxygen Delivery Room Air 05/07/23 00:00 05/07/23 00:00 05/07/23 00:00 Temperature 97.7 F Pulse Rate 67 62 Respiratory Rate
[2023-05-07 18:14] LABS: Glucose Point of Care 131 mg/dl (65-105)
[2023-05-07 20:22] LABS: Glucose Point of Care 161 mg/dl (65-105)
[2023-05-08] VITALS (14 sets, daily range): BP systolic 135–149; BP diastolic 9–87; PULSE 36–84; RESP 18–20; TEMP 36.3–36.6; O2SAT 97–98
--- NOTE | 2023-05-08 00:37 | PC.NURSE ---
Held coreg. Spoke with Dr. Bates regarding coreg. Patient had heart rate in the 30's and 40's several times. Also, a 7 beat run of VT. Cardiology is to see in Am. Patient denies symptoms.
[2023-05-08 04:59] LABS: Basophils Percent Auto 0.4 % (0.2-1.2); Eosinophils Absolute Auto 0.2 K/mm3 (0-0.3); Eosinophils Percent Auto 2.1 % (0-4.4); Hematocrit 40.2 % (42.0-52.0); Hemoglobin 13.2 g/dL (14.0-18.0); Immature Granulocyte Absolute 0.02 K/mm3 (0.00-0.031); Immature Granulocyte Percent A 0.3 % (0-0.5); Lymphocytes Absolute Auto 2.79 K/mm3 (0.9-3.2); Mean Corpuscular HGB Conc 32.8 g/dl (32-36); Mean Corpuscular Hemoglobin 29.9 pg (26-34); Mean Platelet Volume 9.8 fl (7.4-10.4); Monocytes Absolute Auto 0.6 K/mm3 (0.1-0.6); Monocytes Percent Auto 8.8 % (2.6-8.5); Neutrophils Absolute Auto 3.5 K/mm3 (1.3-6.7); Neutrophils Percent Auto 49.4 % (45.5-73.1); Platelet Count Result 187 k/mm3 (150-375); Red Blood Count 4.42 M/mm3 (4.6-6.20); Red Cell Distribution Width 12.8 % (11.5-14.5); White Blood Count 7.2 K/mm3 (4.5-10.0)
[2023-05-08 05:10] LABS: Alanine Aminotransferase 23 U/L (6-50); Albumin Level 3.5 g/dL (3.5-5.1); Alkaline Phosphatase 35 U/L (38-126); Anion Gap 5 mmol/L (8-16); Aspartate Amino Transferase 32 U/L (17-59); Bilirubin,Total 0.7 mg/dL (0.2-1.3); Blood Urea Nitrogen 17 mg/dL (9-20); Calcium 9.2 mg/dL (8.4-10.2); Carbon Dioxide 30 mmol/L (22-30); Chloride 101 mmol/L (98-107); Estimated CRCL calculation 68 ml/min; Estimated Glomerular Filt Rate > 60; Glucose 121 mg/dL (65-110); Potassium 4.2 mmol/L (3.4-5.0); Sodium 136 mmol/L (137-145)
[2023-05-08 05:35] LABS: Magnesium 1.6 mg/dL (1.6-2.3)
[2023-05-08] MEDS: LEVOTHYROXINE SODIUM 50 MCG TABLET PO (06:24)
[2023-05-08 07:54] LABS: Glucose Point of Care 130 mg/dl (65-105)
--- NOTE | 2023-05-08 09:01 | P.PNIM_ITS ---
Progress Note: A&P Assessment and Plan (1) Acute kidney injury superimposed on CKD: Code(s): N17.9 - Acute kidney failure, unspecified; N18.9 - Chronic kidney disease, unspecified Status: Acute Assessment and Plan: * Initial BUN and creatinine 22/2.7 * Today's BUN 21, creatinine 1.40 * Baseline creatinine 1.0 * resumed Lisinopril, decreased to 20 mg * Lasix,and spironolactone on hold * Continue to trend labs * Avoid nephrotoxic medications * Nephrology consulted - ordered labs * renal US normal (2) Acute respiratory alkalosis: Code(s): E87.3 - Alkalosis Status: Resolved Assessment and Plan: * ABG shown pH of 7.619, P CO2 17.5 PO2 125, bicarb 17.5 * Likely due to patient presenting with SOB and throat tightness, could be hyperventilation related. * He was given a DuoNeb and Solu-Medrol 125 mg IV push which resolved his symptoms * now on RA (3) New onset a-fib: Code(s): I48.91 - Unspecified atrial fibrillation Status: Acute Assessment and Plan: * This is not on new onset as patient wants discharged recently on Eliquis for a flutter * Restarted on Eliquis b.i.d. * F/U with [facility] * bradycardic with rest/sleep * spoke with cardiology and lowered BID dose of Coreg to 6.25 (4) Elevated troponin: Code(s): R79.89 - Other specified abnormal findings of blood chemistry Status: Acute Assessment and Plan: * Troponin 0.037> 0.050> 0.033> 0.027 * Likely demand ischemia (5) Hyperlipidemia: Code(s): E78.5 - Hyperlipidemia, unspecified Status: Chronic Assessment and Plan: * continue statin (6) Diabetes type 2, controlled: Qualifiers: Diabetes mellitus complication status: without complication Diabetes mellitus group home insulin use: without resource management specialist use Qualified Code(s): E11.9 - Type 2 diabetes mellitus without complications Code(s): E11.9 - Type 2 diabetes mellitus without complications Status: Chronic Assessment and Plan: * Blood glucose ranging 210-265 * Last hemoglobin A1c on 04/15/2023 is 10.2 * Continue glipizide, Hold Janumet * moderate dose sliding scale insulin * Accu-Cheks AC and HS * Hypoglycemic protocol Subjective Date/time seen: 05/08/23 09:01 Interval history: 05/05/23: This is a 62-year-old male presented to the hospital today with abnormal labs. Patient had outpatient labs demonstrated acute kidney injury and so he presented to the hospital for further evaluation. He was recently seen and discharged from 120-124 due to COVID with hypoxic respiratory failure. He has had multiple admissions with acute on chronic kidney disease. Workup in the hospital included a chest x-ray which was negative for any acute cardiopulmonary disease. He also had a V/Q scan which shown low probability for PE.Renal US on 05/06/23 was unremarkable. EKG showing AFib with a rate of 70. Initial lab shown a white blood cell count of 12.0, BUN of 22, creatinine 2.7, EGFR 24, blood glucose 164, lactic acid 2.1> 1.2, troponin 0.050> 0.027, lipase 340. UA shown 2+ protein, trace ketones. ABG showed pH of 7.619, pCO2 17.5, PO2 of 125, bicarb 17.5. Respiratory panel was negative for influenza, RSV, COVID. Blood cultures were obtained and are currently pending. Patient was given a DuoNeb, methylprednisone 125 mg IV push once, 2 L of LR, 15 mg of Xarelto, 25 mg of Benadryl, and 324 mg aspirin while in the ER. On examination today patient is alert and oriented x3, lying in the bed. Vital signs are stable, he is currently on 2 L nasal cannula, he is currently afebri
--- NOTE | 2023-05-08 09:01 | PM.IMPN ---
Progress Note: A&P Assessment and Plan (1) Acute kidney injury superimposed on CKD: Code(s): N17.9 - Acute kidney failure, unspecified; N18.9 - Chronic kidney disease, unspecified Status: Acute Assessment and Plan: Initial BUN and creatinine 22/2.7 Today's BUN 21, creatinine 1.40 Baseline creatinine 1.0 resumed Lisinopril, decreased to 20 mg Lasix,and spironolactone on hold Continue to trend labs Avoid nephrotoxic medications Nephrology consulted - ordered labs renal US normal (2) Acute respiratory alkalosis: Code(s): E87.3 - Alkalosis Status: Resolved Assessment and Plan: ABG shown pH of 7.619, P CO2 17.5 PO2 125, bicarb 17.5 Likely due to patient presenting with SOB and throat tightness, could be hyperventilation related. He was given a DuoNeb and Solu-Medrol 125 mg IV push which resolved his symptoms now on RA (3) New onset a-fib: Code(s): I48.91 - Unspecified atrial fibrillation Status: Acute Assessment and Plan: This is not on new onset as patient wants discharged recently on Eliquis for a flutter Restarted on Eliquis b.i.d. F/U with [facility] bradycardic with rest/sleep spoke with cardiology and lowered BID dose of Coreg to 6.25 (4) Elevated troponin: Code(s): R79.89 - Other specified abnormal findings of blood chemistry Status: Acute Assessment and Plan: Troponin 0.037> 0.050> 0.033> 0.027 Likely demand ischemia (5) Hyperlipidemia: Code(s): E78.5 - Hyperlipidemia, unspecified Status: Chronic Assessment and Plan: continue statin (6) Diabetes type 2, controlled: Qualifiers: Diabetes mellitus complication status: without complication Diabetes mellitus terminal operator insulin use: without [facility] use Qualified Code(s): E11.9 - Type 2 diabetes mellitus without complications Code(s): E11.9 - Type 2 diabetes mellitus without complications Status: Chronic Assessment and Plan: Blood glucose ranging 210-265 Last hemoglobin A1c on 04/15/2023 is 10.2 Continue glipizide, Hold Janumet moderate dose sliding scale insulin Accu-Cheks AC and HS Hypoglycemic protocol Subjective Date/time seen: 05/08/23 09:01 Interval history: 2/3/24: This is a 62-year-old male presented to the hospital today with abnormal labs. Patient had outpatient labs demonstrated acute kidney injury and so he presented to the hospital for further evaluation. He was recently seen and discharged from [facility] due to COVID with hypoxic respiratory failure. He has had multiple admissions with acute on chronic kidney disease. Workup in the hospital included a chest x-ray which was negative for any acute cardiopulmonary disease. He also had a V/Q scan which shown low probability for PE.Renal US on 05/06/23 was unremarkable. EKG showing AFib with a rate of 70. Initial lab shown a white blood cell count of 12.0, BUN of 22, creatinine 2.7, EGFR 24, blood glucose 164, lactic acid 2.1> 1.2, troponin 0.050> 0.027, lipase 340. UA shown 2+ protein, trace ketones. ABG showed pH of 7.619, pCO2 17.5, PO2 of 125, bicarb 17.5. Respiratory panel was negative for influenza, RSV, COVID. Blood cultures were obtained and are currently pending. Patient was given a DuoNeb, methylprednisone 125 mg IV push once, 2 L of LR, 15 mg of Xarelto, 25 mg of Benadryl, and 324 mg aspirin while in the ER. On examination today patient is alert and oriented x3, lying in the bed. Vital signs are stable, he is currently on 2 L nasal cannula, he is currently afebrile. He denies any fever, chills, nausea, vomiting, diarrhea, abdominal pain, chest pain, or shortness of breath. He endorses a 30 pound unintentional weight loss since January of this past year. Labs today revealed sodium of 132, BUN 23, creatinine 1.7, EGFR 41, blood sugars ranging 210 to 222. 05/08/23: On examination today patientLabs today revealed H/H 13.2, Hct 40.2, Na+ 136, BG 121-
[2023-05-08] MEDS: rOPINIRole HCL 0.25 MG TABLET PO ×3 (09:40→16:33)
[2023-05-08] MEDS: FERROUS SULFATE 325 MG TABLET DR PO (09:41)
[2023-05-08] MEDS: ASPIRIN 81 MG ENTERIC TABLET PO (09:41)
[2023-05-08] MEDS: ISOSORBIDE MONONITRATE 60 MG TAB.ER.24H PO (09:41)
[2023-05-08] MEDS: lisinopriL 20 MG TABLET PO (09:41)
[2023-05-08] MEDS: APIXABAN 5 MG TABLET PO (09:41)
[2023-05-08] MEDS: CLOPIDOGREL BISULFATE 75 MG TABLET PO (09:41)
[2023-05-08] MEDS: ROSUVASTATIN 20 MG TABLET 40 MG PO (09:41)
[2023-05-08] MEDS: glipiZIDE XL 5 MG TABCR PO (09:41)
[2023-05-08] MEDS: PARoxetine 10 MG TABLET PO ×3 (09:41→16:33)
[2023-05-08] MEDS: MONTELUKAST SODIUM 10 MG TABLET PO (09:41)
[2023-05-08] MEDS: FENOFIBRATE NANOCRYSTALLIZED 145 MG TABLET PO (09:42)
[2023-05-08 10:00] LABS: Kappa\\Lambda Light Chains 1.36 (0.26-1.65); Lambda Light Chain 21.1 mg/L (5.7-26.3)
--- NOTE | 2023-05-08 10:54 | PM.PNNEP ---
Progress Note: A&P Assessment and Plan (1) RASHAWN (acute kidney injury): Code(s): N17.9 - Acute kidney failure, unspecified Status: Acute Assessment and Plan: slow improvement noted normal creatinine/renal function prior to admission however, he has had recurrent bouts of RASHAWN/ARF as noted on recent hospital admissions creatinine seems to average out of 1.1 - 1.3mg/dl but there are times it has been worse even as an outpatient evaluation to date: urine electrolytes nonprenal CPK okay moderate proteinuria renal ultrasound okay serologies pending follow repeat labs and UOP (2) A-fib: Code(s): I48.91 - Unspecified atrial fibrillation Status: Acute Assessment and Plan: not completely new -- has had issues with aflutter in the past rate control strategy on anticoagulation (3) Hypertension: Code(s): I10 - Essential (primary) hypertension Status: Acute Assessment and Plan: low on admission doing better at this time slowly resuming BP medications follow trend of hemodynamics (4) Diabetes type 2, controlled: Qualifiers: Diabetes mellitus complication status: without complication Diabetes mellitus exterminator termite insulin use: without fci use Qualified Code(s): E11.9 - Type 2 diabetes mellitus without complications Code(s): E11.9 - Type 2 diabetes mellitus without complications Status: Chronic Assessment and Plan: follow Accu-Cheks glycemic control per hospitalists Would not be opposed to discharge from renal perspective if otherwise medically stable; he can follow-up with Dr. Boyd in clinic to review pending testing. Will continue to follow. Subjective Date/time seen: 05/08/23 10:54 Interval history: Follow-up for acute kidney injury/acute renal failure. Improvement in renal function noted; no apparent distress voiced at the time of my visit; no events overnight or earlier this morning; feels reasonably well. Exam Narrative: General: WD/WN male in NAD Heart: normal S1 and S2; no rub Lungs: clear to auscultation Abdomen: soft, nontender, nondistended, positive bowel sounds Extremities: no cyanosis or clubbing; no edema Skin: warm and intact Objective Data Vital Signs Vital Signs: Vital Signs Temp Pulse Resp BP Pulse Ox O2 Del Method 05/08/23 10:29 97.9 F 68 18 149/9 H 97 05/08/23 08:00 Room Air 05/08/23 08:52 63 97 Room Air 05/08/23 08:09 97.3 F L 66 18 143/87 H 98 05/08/23 06:00 58 L 05/08/23 05:10 97.6 F 68 20 135/73 98 05/08/23 04:00 56 L 05/08/23 04:00 64 20 98 Room Air 05/08/23 02:00 64 05/08/23 00:00 36 L 20 98 Room Air 05/08/23 00:00 60 05/07/23 22:00 56 L 05/07/23 20:00 81 05/08/23 00:37 36 L 05/07/23 23:11 97.1 F L 49 L 20 136/80 98 05/07/23 20:00 64 20 97 Room Air 05/07/23 19:44 97.7 F 64 20 128/62 97 05/07/23 18:00 70 05/07/23 16:00 Room Air 05/07/23 16:00 72 05/07/23 14:40 56 L 05/07/23 16:51 96.4 F L 78 20 134/65 97 05/07/23 12:00 96.5 F L 61 116/67 05/07/23 12:00 Room Air 05/07/23 12:00 61 Intake/Output Intake/Output: Intake & Output 05/05/23 05/06/23 05/07/23 05/08/23 23:59 23:59 23:59 23:59 Intake Total 2720 3220 2060 2130 Output Total 202 1950 3025 Balance 2518 1270 -965 2130 Meds/Results Medications: Active Medications Generic Name Dose Route Start Last Admin Trade Name Sera PRN Reason Stop Dose Admin Apixaban 5 mg 05/05/23 09:00 05/08/23 09:41 Apixaban 5 Mg Tablet PO 5 mg Q12HR VERÓNICA Administration Aspirin 81 mg 05/05/23 09:00 05/08/23 09:41 Aspirin 81 Mg Enteric Tablet PO 81 mg DAILY VERÓNICA Administration Carvedilol 3.125 mg 05/08/23 10:26 05/08/23 11:15 Carvedilol 3.125 Mg Tablet PO Not Given Q12HR [facility] Clopidogrel B
[2023-05-08 11:56] LABS: Glucose Point of Care 121 mg/dl (65-105)
--- NOTE | 2023-05-08 12:32 | PM.CNCAR ---
Assessment and Plan Assessment and plan (1) A-fib: Code(s): I48.91 - Unspecified atrial fibrillation Status: Acute Assessment and Plan: Patient was found have atrial flutter, new onset, when hospitalized with COVID recently and now has atrial fibrillation. He was started on Eliquis. He appears asymptomatic, but has not been very active. Heart rate is generally controlled, running in the 40s up to 110, currently off all beta-cande --continue Eliquis --hold off on beta-cande --will follow-up in the office. Discussed possible need for cardioversion of the atrial fibrillation particularly if he is symptomatic. Discussed the possible need for reinstituting low-dose beta-cande. Reviewed cardiologic risk and encouraged him to take the Eliquis regularly without fail. (2) Nonsustained ventricular tachycardia: Code(s): I47.29 - Other ventricular tachycardia Status: Acute Assessment and Plan: Patient has some nonsustained ventricular tachycardia which was asymptomatic. Longest run was 19 beats, at a rate of about 120 beats per minute. Potassium was in the normal range. Magnesium is in the low end of normal. With normal left ventricular function he has a lower risk of sustained arrhythmia and sudden cardiac . Of course it is preferable to continue a beta-cande but in view of the recent bradycardia and pauses we will at least temporarily hold it. --Hold carvedilol for now. (3) Coronary artery disease: Code(s): I25.10 - Atherosclerotic heart disease of [place] coronary artery without angina pectoris Status: Acute Assessment and Plan: History of CAD, CABG, with early graft closure. The graft to the RCA and diagonal are occluded and the RCA was receiving collateral flow. Rare angina, good LV function. --continue Plavix --since Eliquis was added, I recommend discontinuing the aspirin to reduce bleeding risk --continue rosuvastatin (4) RASHAWN (acute kidney injury): Code(s): N17.9 - Acute kidney failure, unspecified Status: Acute Assessment and Plan: Acute kidney injury, back to baseline with hydration. --continue drinking about 3 quarts/L daily. Avoid over hydration since the patient developed CHF in the past with drinking 2 gal of liquids daily. --follow-up with Dr. Dr Fry/Allen. (5) Bradycardia: Code(s): R00.1 - Bradycardia, unspecified Status: Acute Assessment and Plan: Patient has some mild bradycardia at times and pauses. History of bradycardia on beta-blockers in the past. --temporarily hold carvedilol. (6) Hypertensive heart and chronic kidney disease with heart failure and stage 1 through stage 4 chronic kidney disease, or unspecified chronic kidney disease: Code(s): I13.0 - Hypertensive heart and chronic kidney disease with heart failure and stage 1 through stage 4 chronic kidney disease, or unspecified chronic kidney disease Status: Acute Assessment and Plan: Blood pressure mildly elevated but will follow-up in the office for this as well. Plan Okay for discharge Discontinue carvedilol and aspirin at this time Will follow-up in the office to evaluate heart rate control, consider cardioversion if the patient does not return to sinus rhythm. History of Present Illness History of Present Illness Consult date/time: 05/08/23 12:32 Reason For Visit: Acute Hypoxic Respiratory Failure,RASHAWN Narrative: Virgil Paz this 62-year-old male whom we are asked to see at the request SHERI Marte for advice and opinion regarding AFib, possible arrhythmia/V-tach on telemetry, in consultation. I follow Mr. Paz in my office for his resistant hypertension and history of coronary disease. He had a CABG x4 in May 2015 at [facility] for angina and multivessel disease (BALBUENA to the Left anterior descending, SVG to the OM, SVG to D2, RA (or DENIA?) to PDA) with some postop AFib treated wit
[2023-05-08 16:39] LABS: Glucose Point of Care 132 mg/dl (65-105)
--- NOTE | 2023-05-08 18:13 | PM.DS ---
DS: Admitting Diagnosis Discharge Date 05/08/23 Admitting Diagnosis Acute kidney injury Acute respiratory alkalosis New onset AFib Elevated troponin DS: Discharge Diagnosis Discharge Diagnosis (1) Acute kidney injury superimposed on CKD: Code(s): N17.9 - Acute kidney failure, unspecified; N18.9 - Chronic kidney disease, unspecified Status: Acute (2) Acute respiratory alkalosis: Code(s): E87.3 - Alkalosis Status: Resolved (3) New onset a-fib: Code(s): I48.91 - Unspecified atrial fibrillation Status: Acute (4) Elevated troponin: Code(s): R79.89 - Other specified abnormal findings of blood chemistry Status: Acute (5) Hyperlipidemia: Code(s): E78.5 - Hyperlipidemia, unspecified Status: Chronic (6) Diabetes type 2, controlled: Qualifiers: Diabetes mellitus correction insulin use: without correction use Diabetes mellitus complication status: without complication Qualified Code(s): E11.9 - Type 2 diabetes mellitus without complications Code(s): E11.9 - Type 2 diabetes mellitus without complications Status: Chronic DS: Summary Hospital Course Reason for hospitalization: Acute kidney injury Acute respiratory alkalosis AFib Hospital Course: This is a 62-year-old male presented to the hospital today with abnormal labs.? Patient had outpatient labs demonstrated acute kidney injury and so he presented to the hospital for further evaluation.? He was recently seen and discharged from [address] [place] [address] due to COVID with hypoxic respiratory failure.? He has had multiple admissions with acute on chronic kidney disease.? Workup in the hospital included a chest x-ray which was negative for any acute cardiopulmonary disease.? He also had a V/Q scan which shown low probability for PE.Renal US on 05/06/23 was unremarkable.? EKG showing AFib with a rate of 70.? Initial lab shown a white blood cell count of 12.0, BUN of 22, creatinine 2.7, EGFR 24, blood glucose 164, lactic acid 2.1> 1.2, troponin 0.050> 0.027, lipase 340.? UA shown 2+ protein, trace ketones.? ABG showed pH of 7.619, pCO2 17.5, PO2 of 125, bicarb 17.5.? Respiratory panel was negative for influenza, RSV, COVID.? Blood cultures were obtained and are currently pending.? Patient was given a DuoNeb, methylprednisone 125 mg IV push once, 2 L of LR, 15 mg of Xarelto, 25 mg of Benadryl, and 324 mg aspirin while in the ER. On examination today patient is alert oriented x3, lying in the bed. He denies any fever, chills, nausea, vomiting, diarrhea, abdominal pain, shortness a breath, chest pain. Labs today revealed H/H 13.2, Hct 40.2, Na+ 136, BG 121-130, Magnesium 1.6. Blood cultures showing no growth on preliminary read. Cardiology seen patient today and started him on Imdur, they also want him to continue his spironolactone, he will need to stop taking his Lasix. Patient is stable for discharge at this time. He will need to follow up with his primary care physician in 1 week. He was also need to follow-up with his cardiology team in 2 weeks. Final diagnosis: Acute kidney injury, AFib Status at Discharge Cognitive/behavioral status at discharge: Alert oriented x4 Functional status at discharge: independent ambulation Overall status at discharge: patient is progressing back to baseline Time Spent with Patient Time attestation: Total time spent providing and/or coordinating discharge services: Time spent: Greater than 30 minutes Exam Narrative: General: In no acute distress, well nourished Head: atraumatic, no encephalopathy Eyes: EOMI, PERRLA, slcera clear ENT: moist mucous membranes, nasal passages clear Neck: supple, no JVD, no adenopathy, trachea midline Cardiac: Normal S1 and S2. No murmur, gallops or friction rubs, peripheral pulses intact. Respiratory: Lungs clear to auscultation, no adventitious lung sounds Gastrointestinal: soft, non-distended, non-tender, normoactive bowel sounds. : voiding without di
[2023-05-10 09:46] LABS: Complement Total CH50 58 U/mL (31-60)
[2023-05-10 14:44] LABS: Anti Nuclear Antibody Titer 1:40 (Negative)
[2023-05-15 14:12] LABS: Albumin 67 %; Creat 24 Hr 0.26 g/24 h (0.50-2.15); Pro/Creat Ratio 193 mg/g creat (<100); Pro/Creat Ratio mg/mg 0.193 (<0.100); Protein,total, 24 Hr Ur 50 mg/24 h (<100)
== END 2023-05-08 17:23 | disposition home or self-care (01) ==
LOC: ANHED 21:42 → ANHIMU 22:48
PROVIDERS: Emergency Medicine; Internal Medicine; Internal Medicine Nephrology; Nurse Practitioner Acute Care; Admitting Provider Family Medicine; Emergency Provider Student in an Organized Health Care Education/Training Program; PCP Family Medicine; Visit Provider Internal Medicine
DX: N17.9 Acute kidney failure, unspecified (principal); J96.01 Acute respiratory failure with hypoxia; I50.9 Heart failure, unspecified; I13.0 Hypertensive heart and chronic kidney disease with heart failure and stage 1 through stage 4 chronic kidney disease, or unspecified chronic kidney disease; E11.22 Type 2 diabetes mellitus with diabetic chronic kidney disease; N18.30 Chronic kidney disease, stage 3 unspecified; Z20.822 Contact with and (suspected) exposure to COVID-19; E87.3 Alkalosis; I48.91 Unspecified atrial fibrillation; I44.4 Left anterior fascicular block; R00.1 Bradycardia, unspecified; I25.10 Atherosclerotic heart disease of native coronary artery without angina pectoris; Z95.1 Presence of aortocoronary bypass graft; J44.89 Other specified chronic obstructive pulmonary disease; N40.0 Benign prostatic hyperplasia without lower urinary tract symptoms; R79.89 Other specified abnormal findings of blood chemistry; E78.5 Hyperlipidemia, unspecified; E03.9 Hypothyroidism, unspecified; G25.81 Restless legs syndrome; E66.9 Obesity, unspecified; Z68.33 Body mass index [BMI] 33.0-33.9, adult; G47.33 Obstructive sleep apnea (adult) (pediatric); M48.10 Ankylosing hyperostosis [Forestier], site unspecified; Z99.89 Dependence on other enabling machines and devices; Z86.16 Personal history of COVID-19; Z79.82 Long term (current) use of aspirin; Z79.01 Long term (current) use of anticoagulants; Z79.84 Long term (current) use of oral hypoglycemic drugs; Z87.891 Personal history of nicotine dependence; Z86.73 Personal history of transient ischemic attack (TIA), and cerebral infarction without residual deficits; Z82.5 Family history of asthma and other chronic lower respiratory diseases; Z82.61 Family history of arthritis; Z83.3 Family history of diabetes mellitus
CPT/HCPCS: 36415; 36600; 71045; 76775; 78582; 80048; 80053; 81001; 82533; 82550; 82570; 82803; 82805; 82948; 83605; 83690; 83735; 83880; 83883; 84100; 84145; 84156; 84300; 84443; 84484; 84540; 85025; 85027; 85610; 85652; 85730; 85999; 86038; 86039; 86140; 86160; 86162; 86225; 86334; 86335; 86703; 87040; 87340; 87637; 93005; 94640; 96361; 96374; 96375; 99285; A9270; A9540; A9558; G0378; G0432; J1200; J1815; J2930; J7120

== ENCOUNTER 2023-05-28 14:01 | Outpatient (CLI) | payer OTHER, SELFPAY ==
[2023-05-28 14:47] LABS: Basophils Percent Auto 0.4 % (0.2-1.2); Eosinophils Absolute Auto 0.1 K/mm3 (0-0.3); Eosinophils Percent Auto 1.1 % (0-4.4); Hematocrit 45.4 % (42.0-52.0); Hemoglobin 14.7 g/dL (14.0-18.0); Immature Granulocyte Absolute 0.03 K/mm3 (0.00-0.031); Immature Granulocyte Percent A 0.3 % (0-0.5); Lymphocytes Absolute Auto 2.84 K/mm3 (0.9-3.2); Mean Corpuscular HGB Conc 32.4 g/dl (32-36); Mean Corpuscular Hemoglobin 29.6 pg (26-34); Mean Corpuscular Volume 91.3 fl (80-100); Mean Platelet Volume 9.5 fl (7.4-10.4); Monocytes Absolute Auto 0.7 K/mm3 (0.1-0.6); Monocytes Percent Auto 7.2 % (2.6-8.5); Neutrophils Absolute Auto 5.8 K/mm3 (1.3-6.7); Platelet Count Result 371 k/mm3 (150-375); Red Blood Count 4.97 M/mm3 (4.6-6.20); Red Cell Distribution Width 13.3 % (11.5-14.5); White Blood Count 9.5 K/mm3 (4.5-10.0)
[2023-05-28 14:52] LABS: Anion Gap 10 mmol/L (8-16); Blood Urea Nitrogen 11 mg/dL (9-20); Calcium 9.7 mg/dL (8.4-10.2); Carbon Dioxide 24 mmol/L (22-30); Chloride 106 mmol/L (98-107); Estimated Glomerular Filt Rate 44; Glucose 94 mg/dL (65-110); Potassium 4.3 mmol/L (3.4-5.0); Sodium 140 mmol/L (137-145)
== END 2023-05-28 14:02 | disposition home or self-care (01) ==
LOC: ANHLAB 14:03
PROVIDERS: PCP Family Medicine; Visit Provider Nurse Practitioner Adult Health
DX: I95.9 Hypotension, unspecified (principal)
CPT/HCPCS: 36415; 80048; 85025

== ENCOUNTER 2023-11-30 09:19 | Outpatient (CLI) | payer OTHER, MEDICAID, SELFPAY ==
[2023-11-30 09:56] LABS: Basophils Absolute Auto 0.1 K/mm3 (0.0-0.1); Basophils Percent Auto 0.7 % (0.2-1.2); Eosinophils Absolute Auto 0.3 K/mm3 (0-0.3); Eosinophils Percent Auto 3.6 % (0-4.4); Hematocrit 41.3 % (42.0-52.0); Hemoglobin 13.9 g/dL (14.0-18.0); Immature Granulocyte Absolute 0.04 K/mm3 (0.00-0.031); Immature Granulocyte Percent A 0.5 % (0-0.5); Lymphocytes Absolute Auto 2.86 K/mm3 (0.9-3.2); Lymphocytes Percent Auto 32.9 % (18.3-44.2); Mean Corpuscular HGB Conc 33.7 g/dl (32-36); Monocytes Absolute Auto 0.6 K/mm3 (0.1-0.6); Monocytes Percent Auto 6.6 % (2.6-8.5); Neutrophils Absolute Auto 4.9 K/mm3 (1.3-6.7); Neutrophils Percent Auto 55.7 % (45.5-73.1); Platelet Count Result 234 k/mm3 (150-375); Red Blood Count 4.49 M/mm3 (4.6-6.20); Red Cell Distribution Width 13.2 % (11.5-14.5); White Blood Count 8.7 K/mm3 (4.5-10.0)
[2023-11-30 10:04] LABS: Hemoglobin A1C 9.3 % (<5.7)
[2023-11-30 10:31] LABS: Alanine Aminotransferase 28 U/L (6-50); Albumin Level 4.5 g/dL (3.5-5.1); Alkaline Phosphatase 63 U/L (38-126); Anion Gap 10 mmol/L (4-12); Aspartate Amino Transferase 36 U/L (17-59); Bilirubin,Total 0.4 mg/dL (0.2-1.3); Blood Urea Nitrogen 13 mg/dL (9-20); Calcium 9.1 mg/dL (8.4-10.2); Carbon Dioxide 27 mmol/L (22-30); Chloride 99 mmol/L (98-107); Cholesterol 133 mg/dL (0-200); Estimated Glomerular Filt Rate 44; Glucose 179 mg/dL (65-110); HDL Direct 30 mg/dL; Potassium 4.5 mmol/L (3.4-5.0); Sodium 136 mmol/L (137-145); Triglycerides 269 mg/dL (<150)
[2023-11-30 10:33] LABS: Iron 78 ug/dL (49-181)
[2023-11-30 10:42] LABS: LDL Cholesterol Direct 58 mg/dL; Percent Iron Saturation 21 % (20-50)
[2023-11-30 11:29] LABS: Folic Acid 15.4 ng/mL (2.76->20)
[2023-11-30 12:45] LABS: Vitamin D 25 Hydroxy 26.2 ng/mL
== END 2023-11-30 09:20 | disposition home or self-care (01) ==
PROVIDERS: PCP Family Medicine; Visit Provider Physician Assistant
DX: R53.83 Other fatigue (principal); E55.9 Vitamin D deficiency, unspecified; D50.9 Iron deficiency anemia, unspecified; F32.9 Major depressive disorder, single episode, unspecified; E78.1 Pure hyperglyceridemia; I13.0 Hypertensive heart and chronic kidney disease with heart failure and stage 1 through stage 4 chronic kidney disease, or unspecified chronic kidney disease; I50.9 Heart failure, unspecified; E11.22 Type 2 diabetes mellitus with diabetic chronic kidney disease; N18.31 Chronic kidney disease, stage 3a; Z86.73 Personal history of transient ischemic attack (TIA), and cerebral infarction without residual deficits; J30.9 Allergic rhinitis, unspecified; E78.5 Hyperlipidemia, unspecified
CPT/HCPCS: 36415; 80053; 80061; 82306; 82607; 82728; 82746; 83036; 83540; 83550; 84443; 85025

== ENCOUNTER 2024-01-28 10:17 | Outpatient (CLI) | payer OTHER, MEDICAID, SELFPAY ==
[2024-01-28 11:29] LABS: Add Urine Microscopic? YES; Appearance Urine Clear (Clear); Bacteria Urine None Seen /hpf; Bilirubin Urine Negative (Negative); Blood Urine Negative (Negative); Color Urine Yellow (Yellow); Glucose Urine UA 3+ mg/dL (Negative); Hyaline Casts Urine Present /lpf; Ketones Urine Negative (Negative); Leukocyte Esterase Ur Negative LEU/UL (Negative); Need Manual Microscopic Reviewed; Nitrate Urine Negative (Negative); Protein Urine 1+ mg/dL (Negative); RBC Urine 0-2 /hpf (0-2); Specific Grav Ur 1.022 (1.001-1.035); Squamous Epithelial Cell Urine None Seen /hpf (Few); Urobilinogen Urine 0.2 mg/dL (<2.0); WBC Urine 0-5 /hpf (0-3)
[2024-01-28 11:43] LABS: Prostate Specific Antigen 1.7 ng/mL (< OR = 4.0)
[2024-01-28 12:01] LABS: Creatinine Urine 159.3 mg/dL
[2024-01-28 12:04] LABS: MALB Creatinine Ratio 113.9 mg/g (0-30); Microalbumin Urine Random 181.5 mg/L (0-16.7)
== END 2024-01-28 10:18 | disposition home or self-care (01) ==
PROVIDERS: PCP Family Medicine; Visit Provider Physician Assistant
DX: Z00.00 Encounter for general adult medical examination without abnormal findings (principal); Z12.5 Encounter for screening for malignant neoplasm of prostate; N18.9 Chronic kidney disease, unspecified; E11.65 Type 2 diabetes mellitus with hyperglycemia; F32.9 Major depressive disorder, single episode, unspecified; N40.0 Benign prostatic hyperplasia without lower urinary tract symptoms
CPT/HCPCS: 36415; 81001; 82043; 84153; 84443; G0103

== ENCOUNTER 2024-01-31 01:18 | Day surgery (SDC) | payer OTHER, MEDICAID, SELFPAY ==
[2024-01-25 14:51] VITALS: BMI 37.3
--- NOTE | 2024-01-25 15:36 | PC.NURSE ---
Spoke with PATIENT regarding medication PLAVIX. Pt. verbalizes understanding that the last dose of PLAVIX is to be taken on 01/26/2024 and the Endoscopist will instruct them when to restart after the procedure.
[2024-01-31 08:31] VITALS: BP 95/53; PULSE 73; RESP 20; TEMP 35.8; O2SAT 97; BMI 34.2
[2024-01-31] MEDS: LACTATED RINGERS 1,000 ML 150 ML IV CONT (08:31)
--- NOTE | 2024-01-31 08:34 | SUR.PREOP ---
Patient took Plavix on 01/29. MD abdi
[2024-01-31 08:38] LABS: Glucose Point of Care 157 mg/dl (65-105)
--- NOTE | 2024-01-31 08:47 | PM.HPGS ---
History of Present Illness History of Present Illness Consent: Risks, benefits, and alternatives have been discussed and questions answered. Patient agrees to proceed with procedure. Chief complaint: Melena, KOBY, unspecified, hx colon polyps, Narrative: Virgil Paz Jr. is a 63 year old male with mild anemia but denies much of upper gi symptoms, few occasions took tums. Never had egd. Last colonoscopy 8 years ago, mother had colon cancer Review of Systems Review of Systems: All systems reviewed & are unremarkable except as noted in HPI and below PMFSH Past Medical History Medical History (Updated 01/31/24 @ 08:49 by Abdiel Faith MD) Allergic rhinitis NIRANJAN positive Asthma with COPD BPH (benign prostatic hyperplasia) Bradycardia Chronic kidney disease Stage III with baseline creatinine between 1.2-1.5 Class 2 obesity with body mass index (BMI) of 37.0 to 37.9 in adult COPD (chronic obstructive pulmonary disease) With PFTs 05/25/2019 demonstrating decreased diffusion capacity but no evidence of restrictive or obstructive ventilatory defect Coronary artery disease CVA (cerebral vascular accident) Right ocular stroke 2004 DISH (diffuse idiopathic skeletal hyperostosis) 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 Pulmonary nodules RLS (restless legs syndrome) Type 2 diabetes mellitus Surgical History Surgical History History of cardiac catheterization (~04/2016) Occluded RCA and DENIA to RCA, occluded saphenous vein graft to 90% stenosed D1, patent BALBUENA to LAD and patent saphenous vein graft to obtuse marginal History of tonsillectomy Hx of CABG (~04/2015) For vessel CABG performed at [facility]: BALBUENA to LAD SVG to OM SVG to 2nd diagonal RA to PDA complicated by postoperative atrial fibrillation Status post open reduction with internal fixation of fracture Ankle fracture Family History Family History Mother COPD (chronic obstructive pulmonary disease) Carcinoma of colon Squamous cell cancer of external ear Father Acute myocardial infarction Age greater than 60 Osteoarthritis Hypertension Social History Social History Social History: The patient has been since April 2018. He lives alone but has a dog. 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 He is a former smoker and used to smoke 2-4 pack per day but quit in 2004. He denies any alcohol or drug use. Code status: Full code Surrogate decision maker: Jori (brother) or Dionisio Lozano, friend. Smoking packs per day: 3 Smoking cigarettes per day: 60.0 Years smoked: 15 Smoking pack-years: 45.00 Smoking status: Former smoker Tobacco type: cigarettes Second hand tobacco smoke exposure: Yes Additional smoking assessment comments: 2-14 Alcohol intake: current Substance use: never Substance use type: does not use Do You Feel Safe in your Home?: Yes Lack of Transportation: No Lack of Food: Never True Current Housing: I Have Housing Concerned About Future Housing: No Difficulty Paying Gas/Electric Bills: No Difficulty Paying for Meds: No Currently Unemployed: No Education: High School Diploma/GED Difficulty w/ Childcare or Family Care: No Living arrangements: alone Occupation/Education: retired Spiritual care concerns: No Meds Home Medications and Allergies Home Medications Medication Instructions Recorded Confirmed Type blood sugar diagnostic (Blood #100 ea 05/15/23 01/31/24 Rx Glucose Test strips) lancets (Microlet Lancet) #100 ea 05/16/23 01/31/24 Rx levothyroxine 50 mcg tablet See Rx Instructions .Route 06/11/23 01/31/24 Rx .COMPLEX #90 tabs rosuvastatin 40 mg tablet See Rx Instructions .Route 06/11/23 01/31/24 Rx .COMPLEX #90 tabs spironolactone 50 mg tablet See Rx Instructions .Route 06/11/23 01/31/24 Rx .COMPLEX #90 tabs blood-glucose meter (Contour Next #1 ea 06/22/23 01/31/24 Rx Gen Meter) emtricitabine 200 mg-tenofovir See Rx Instructions .Route 07/19/23 01/31/24 Rx disoproxil fumarate 300 mg tablet .COMPLEX #90 tabs glipizide 5 mg tablet, extended See Rx Instructions .Route 07/19/23 01/31/24 Rx release 24 hr .COMPLEX #90 tabs lisinopril 40 mg tablet See Rx Instructions .Route 07/19/23 01/31/24 Rx .COMPLEX #90 tabs clopidogrel 75 mg tablet See Rx Instructions .Route 09/10/23 01/31/24 Rx .COMPLEX #90 tabs montelukast 10 mg tablet See Rx Instructions .Route 09/10/23 01/31/24 Rx .COMPLEX #90 tabs fenofibrate nanocrystallized 145 See Rx Instructions .Route 10/23/23 01/31/24 Rx mg tablet .COMPLEX #90 tabs nystatin 100,000 unit/mL oral See Rx Instructions .Route 11/09/23 01/31/24 Rx suspension .COMPLEX #200 mL dapagliflozin propanediol 10 mg 10 mg PO DAILY #30 tabs 12/04/23 01/31/24 Rx tablet (Farxiga) ropinirole 0.25 mg tablet 0.25 mg PO TID #270 tabs 12/04/23 01/31/24 Rx albuterol sulfate 90 mcg/actuation 1 puff inhalation Q4-6H PRN 01/02/24 01/31/24 Rx aerosol inhaler shortness of breath or wheezing #8.5 grams isosorbide mononitrate 60 mg 60 mg PO DAILY #90 tabs 01/18/24 01/31/24 Rx tablet,extended release 24 hr carvedilol 6.25 mg tablet 6.25 mg PO BID 01/25/24 01/31/24 History ferrous sulfate 325 mg (65 mg 325 mg PO DAILY 01/25/24 01/31/24 History iron) tablet paroxetine HCl 10 mg tablet 10 mg PO BID 01/25/24 01/31/24 History triamcinolone acetonide 0.1 % 1 applic topical BID PRN Dry Skin 01/25/24 01/31/24 History lotion hydrocodone 5 mg-acetaminophen 325 1 tablet PO BID PRN severe pain 01/28/24 01/31/24 Rx mg tablet (scale score 7-10) #60 tabs Allergies Allergy/AdvReac Type Severity Reaction Status Date / Time apple Allergy Severe Difficulty Verified 01/31/24 08:11 Swallowing empagliflozin Allergy Intermediate Rash Verified 01/31/24 08:11 [From Jardiance] hydralazine Allergy Intermediate CAUSED Verified 01/31/24 08:11 LUPUS hydroxychloroquine Allergy Intermediate Itching Verified 01/31/24 08:11 [From Plaquenil] Vital Signs Vital Signs - 24 hr 01/31/24 08:31 Temperature 96.5 F L Pulse Rate 73 Respiratory Rate 20 Blood Pressure 95/53 L Pulse Oximetry 97 Oxygen Delivery Room Air Exam Const: General: comfortable and no acute distress HENMT: Face/Nose/Sinus: Normal nares present Eyes: General: appearance normal, both eyes and all related structures Neck: Neck: no JVD Resp: Auscultation: clear to auscultation bilaterally Cardio: Rate: regular rate Rhythm: regular rhythm GI: Inspection: non-distended GI Palp: Yes Soft to palpation Skin: General skin exam: normal color Neuro: General: gait normal Speech: normal speech Extrem: General: normal to inspection Psych: Mental Status: mental status grossly normal Assessment and Plan Assessment and plan (1) Anemia: Code(s): D64.9 - Anemia, unspecified Status: Acute Assessment and Plan: no overt gib egd (2) Family history of colon cancer in mother: Code(s): Z80.0 - Family history of malignant neoplasm of digestive organs Status: Acute Assessment and Plan: colonoscopy
[2024-01-31 09:10] VITALS: BP 77/52; PULSE 58; RESP 20; O2SAT 96
[2024-01-31 09:20] VITALS: BP 79/42; PULSE 54; RESP 18; O2SAT 97
[2024-01-31 09:30] VITALS: BP 92/40; PULSE 56; RESP 20; O2SAT 97
[2024-01-31 09:40] VITALS: BP 92/46; PULSE 61; RESP 14; O2SAT 97
[2024-01-31 09:50] VITALS: BP 90/52; PULSE 67; RESP 20; O2SAT 98
--- NOTE | 2024-01-31 09:55 | SUR.PHASEII ---
pts bp on arrival to recovery was 70s over 40s. pt placed in reverse trendelenburg, ivf wide open per diet technician registered. pt awake, states feels ok. pt states his bp has been running low and he is going to speak with his machine worker about this. states occasionally has dizziness at home. asked pt if he took his bp at home, states he used to but needs new machine. rec he begin taking bp in the morning before his meds and again after, can keep a diary of readings and let his doctors know if bp is too low or too high. voiced understanding. bp up to 90s over 40s and low 50s. bp on admit was 96/53. pt states feels fine, no dizziness. bp okayed with diet technician registered. pt discharged without any difficulties.
== END 2024-01-31 10:00 | disposition home or self-care (01) ==
PROVIDERS: PCP Family Medicine; Referring Provider Physician Assistant; Visit Provider Internal Medicine Gastroenterology
PROC: 0DJ08ZZ Inspection of Upper Intestinal Tract, Via Natural or Artificial Opening Endoscopic (ICD-10-PCS; CPT 43235; principal; 2024-01-31 09:30)
DX: Z12.11 Encounter for screening for malignant neoplasm of colon (principal); K64.8 Other hemorrhoids; K29.50 Unspecified chronic gastritis without bleeding; D64.9 Anemia, unspecified; E78.5 Hyperlipidemia, unspecified; E03.9 Hypothyroidism, unspecified; E11.9 Type 2 diabetes mellitus without complications; I12.9 Hypertensive chronic kidney disease with stage 1 through stage 4 chronic kidney disease, or unspecified chronic kidney disease; N18.30 Chronic kidney disease, stage 3 unspecified; I11.9 Hypertensive heart disease without heart failure; J44.89 Other specified chronic obstructive pulmonary disease; N40.0 Benign prostatic hyperplasia without lower urinary tract symptoms; I25.10 Atherosclerotic heart disease of native coronary artery without angina pectoris; M48.10 Ankylosing hyperostosis [Forestier], site unspecified; L93.2 Other local lupus erythematosus; G47.33 Obstructive sleep apnea (adult) (pediatric); Z99.89 Dependence on other enabling machines and devices; G25.81 Restless legs syndrome; E66.9 Obesity, unspecified; Z68.34 Body mass index [BMI] 34.0-34.9, adult; Z79.84 Long term (current) use of oral hypoglycemic drugs; Z79.02 Long term (current) use of antithrombotics/antiplatelets; Z79.51 Long term (current) use of inhaled steroids; Z79.891 Long term (current) use of opiate analgesic; Z98.890 Other specified postprocedural states; Z98.61 Coronary angioplasty status; Z95.1 Presence of aortocoronary bypass graft; Z87.891 Personal history of nicotine dependence; Z86.0100 Personal history of colon polyps, unspecified; Z86.79 Personal history of other diseases of the circulatory system; Z86.73 Personal history of transient ischemic attack (TIA), and cerebral infarction without residual deficits; Z80.0 Family history of malignant neoplasm of digestive organs; Z80.8 Family history of malignant neoplasm of other organs or systems; Z82.49 Family history of ischemic heart disease and other diseases of the circulatory system
CPT/HCPCS: 43239; G0105; 82948; 88305; J2371; J2704; J7120

== ENCOUNTER 2024-04-16 08:08 | Outpatient (CLI) | payer OTHER, SELFPAY ==
--- NOTE | ~2024-04-16 | CT_ITS ---
EXAMINATION: CT lung screening DATE: 04/16/2024 08:29 INDICATION: Z87.891 - Personal history of nicotine dependence TECHNIQUE: Computed tomography (CT) of the chest was performed without intravenous contrast. Addition al 3D reconstructions utilizing coronal maximum intensity projection (MIP) were performed. Automated exposure control and iterative reconstruction technique were employed. The dose-length product was 24 8.53 mGy-cm. COMPARISON: 04/15/2023 FINDINGS: There are few scattered bilateral calcified pulmonary nodules along with calcified left hilar lymph n odes and a splenic calcific location, all consistent with old granulomatous disease. There are also a few scattered unchanged <3 mm pulmonary nodules which are not definitively calcified. No pneumonia, pulmonary edema or pleural effusion. Heart size is normal. Venous sternotomy wires and changes of turner or coronary artery bypass grafting. Thoracic aorta is normal in caliber. No pathologically enlarged t horacic lymphadenopathy. Diffuse hepatic steatosis. Small calcified gallstone in the dependent aspect of the otherwise normal-appearing gallbladder. Chronic anterior wedging of a few mid and lower thora cic vertebral bodies with bridging osteophytes at multiple levels consistent with diffuse idiopathic skeletal hyperostosis (DISH). IMPRESSION: 1. Lung-RADS category 2: Benign appearance or behavior. Continue annual screening with noncontrast lo w-dose chest CT in 12 months. Reviewed, dictated and finalized at location B. D WRAPPER OPERATOR IMPRESSION: 1. Lung-RADS category 2: Benign appearance or behavior. Continue annual screeni ng with noncontrast low-dose chest CT in 12 months.
== END 2024-04-16 08:09 | disposition home or self-care (01) ==
PROVIDERS: Physician Assistant; PCP Family Medicine; Visit Provider Physician Assistant
DX: Z12.2 Encounter for screening for malignant neoplasm of respiratory organs (principal); Z87.891 Personal history of nicotine dependence; E03.9 Hypothyroidism, unspecified
CPT/HCPCS: 36415; 71271; 84443